=== PATIENT | female | born 1950 | race Caucasian/White ===

== ENCOUNTER 2022-04-03 09:26 | Outpatient (RCR) | payer MEDICARE, BC, SELFPAY ==
[2022-04-03 10:41] LABS: Vitamin D 25 Hydroxy* 53 ng/mL (30-80)
[2022-04-03 13:12] LABS: Albumin* 4.3 g/dL (3.3-5.0); Chloride* 99 mmol/L (96-114); Glucose* 95 mg/dL (60-115); Total Protein* 7.6 g/dL (6.0-8.3)
[2022-04-03 13:13] LABS: Alanine Aminotransferase* 30 U/L (4-35); Alkaline Phosphatase* 90 U/L (40-150); Aspartate Amino Transferase* 49 U/L (12-35); Bilirubin Total* 0.4 mg/dL (0.1-1.5); Blood Urea Nitrogen* 10 mg/dL (7-30); Calcium* 9.1 mg/dL (8.4-10.6); Carbon Dioxide* 27 mmol/L (20-32); Creatinine* 0.6 mg/dL (0.5-1.5); Estimated Glomerular Filt Rate 97 ml/min; Potassium* 4.4 mmol/L (3.6-5.1); Sodium* 136 mmol/L (135-149)
== END 2022-09-30 23:59 | disposition home or self-care (01) ==
LOC: CCIC 09:26
PROVIDERS: PCP Internal Medicine; Visit Provider Nurse Practitioner Family
DX: C50.912 Malignant neoplasm of unspecified site of left female breast (principal); Z17.0 Estrogen receptor positive status [ER+]; Z79.810 Long term (current) use of selective estrogen receptor modulators (SERMs); M85.80 Other specified disorders of bone density and structure, unspecified site
CPT/HCPCS: 36415; 80053; 82306; 99212; 99214

== ENCOUNTER 2022-12-10 13:09 | Outpatient (CLI) | payer MEDICARE, BC, SELFPAY ==
--- NOTE | 2022-12-10 13:20 | CRLHL7_ITS ---
For Patients: As a result of the Century Cures Act, medical imaging exams and procedure reports are released immediately into your electronic medical record. You may view this report before your referring provider. If you have questions, please contact your health care provider. BILATERAL SCREENING MAMMOGRAM WITH COMPUTER-AIDED DETECTION AND TOMOSYNTHESIS TECHNIQUE: CC and MLO views were obtained. These mammographic images have been obtained using full-field digital technique. These mammographic images were interpreted with the benefit of computer-aided detection. Breast Tomosynthesis was used in this interpretation. COMPARISON FILM: 11/26/21, 11/19/20, 11/14/19. FINDINGS: The breasts are heterogeneously dense, which may obscure small masses IMPRESSION: There is no radiographic evidence for malignancy. ASSESSMENT: BI-RADS Category 1: Negative RECOMMENDATION: Routine screening mammogram in 1 year. A lay language report of this examination will be provided to the patient. Efrain López M.D. Diagnostic Radiologist [email or web address] HERBER/Dictated by: Efrain López MD @ 12/11/2022 10:54:00 AM (Electronically Signed)
== END 2022-12-10 13:10 | disposition home or self-care (01) ==
LOC: MAMMO 13:12
PROVIDERS: PCP Internal Medicine; Visit Provider Internal Medicine
DX: Z12.31 Encounter for screening mammogram for malignant neoplasm of breast (principal); R92.2 Inconclusive mammogram
CPT/HCPCS: 77063; 77067

== ENCOUNTER 2023-04-19 09:00 | Outpatient (RCR) | payer MEDICARE, BC, SELFPAY ==
--- NOTE | 2023-03-30 11:18 | PT.OPEX ---
PT [place] [facility] Eval PT [facility] Eval Start: 03/30/23 07:29 Freq: Status: Active Protocol: Document 03/30/23 07:30 CRP (Rec: 03/30/23 11:15 CRP [id number]) E-signed By Enmanuel Miller PT Physical Therapy Outpatient Evaluation Insurance Information Recert Due Date 06/28/23 Insurance Name Medicare B Medical Diagnosis Piriformis syndrome Referring MD Dr Caraballo Subjective Subjective Pt reports bilateral gluteal pain. If sitting for more than 10-15 min she will be painful for 20-30 steps. Pain also sleeping on her sides. When active she feels fine. No numbness or tingling. Feels good in the morning. Feels fine with her aqua classes and walking exer. Notes that this pain started after sitting cross legged in yoga class. This was a little over a month ago. Is no longer doing yoga class. Pt is retired. Pt has been doing some hip and back stretches she learned from her . PMHx - Breast Cancer Pain Comments 12/14 Current Work Status Retired Objective Range of Motion Trunk ROM Flex WNL Ext min dec with LBP Bilat SB WNL BIlat rotation WNL Hip ROM Flex WNL ER R 25 deg, L 50 deg IR R 20, L 15 deg Strength Hip Flex WNL bilat Abd R 4-/5 with glute pain, L 4/5 ER WNL bilat IR WNL bilat Ext 4/5 bilat Palpation Pain glute med/min and piriformis bilat Sensation/Reflexes Sensation intact to light touch Other/Pertinent Objective SLR + for adverse neurodynamics dog barber painful and hypomobile L4 -5 Functional Test Performed & Score LEFS - 62 Assessment Assessment/Impression Pt presents to the clinic with ongoing bilateral gluteal pain that is consistent with piriformis syndrome associated with underlying issues of hip mobility dysfunction, lower quadrant weakness, painful hypomobility of the lumbar spine and adverse neurodynamics bilaterally. Skilled PT is necessary to incorporate ther ex, nm christian, manual therapy, ther act and pt education to decrease pain and improve functional mobility. Primary Functional Limitations Sit to stand Gait Plan of Care Rehabilitation Potential Excellent Physical Therapy Goals 1. Pt will be 100% independent with HEP in 6 weeks 2. Pt will go sit to stand without pain in 8-10 weeks 3. Pt will walk without c.o in 12 weeks Coordination/Communication With Referral Source Treatment Plan/Direct Interventions Joint Mobilization,Manual Therapy,Neuromuscular Re-ed, Therapeutic Activities, Therapeutic Exercises Frequency/Duration 1-2x/wk for 12 weeks Patient Will Be Discharged From Therapy Completion of LTG(s),Skills Plateau,Independent w/HEP, Independently Progressing Evaluation Billing Untimed Code Treatment Minutes 30 Complexity Moderate Certification Information Initial Certification Date 03/30/23 Ending Certification Date 06/28/23 Provider Signature Shows Agreement With POC & Medical Necessity Physician Signature & Date Requested Please Sign/Date Here Physician Comment/Change : Physician NPI Number #
== END 2023-08-17 23:59 | disposition home or self-care (01) ==
PROVIDERS: PCP Internal Medicine; Visit Provider Internal Medicine
DX: G57.03 Lesion of sciatic nerve, bilateral lower limbs (principal); Z51.89 Encounter for other specified aftercare
CPT/HCPCS: 97110; 97140; 97162

== ENCOUNTER 2023-09-09 08:15 | Outpatient (RCR) | payer MEDICARE, BC, SELFPAY ==
--- NOTE | 2023-08-20 15:33 | PT.OPEX ---
PT [place] Outpatient Eval PT [facility] Eval Start: 08/20/23 14:22 Freq: Status: Active Protocol: Document 08/20/23 14:22 CRP (Rec: 08/20/23 15:25 CRP [id number]) E-signed By Enmanuel Miller, PT Physical Therapy Outpatient Evaluation Insurance Information Recert Due Date 11/18/23 Insurance Name Medicare B Medical Diagnosis Sciatica Referring MD Dr Caraballo Subjective Subjective Pt c/o pain at the L hip and then all the way down the leg to the foot. No numbness or tingling. This started with pain on the r glute. This seemed to get better with PT but it ended up on the L side. About a month ago the pain started going all the way down the leg. Is usually pretty good getting out of bed in the morning. The more she is active the better she feels. Sitting makes it worse. Is going to water aerobics and this does not seem to be a problem. Standing and bending forward does help short term. Pain noted with going up stairs when she leads with her L. Pain Comments 10/14 Current Work Status Retired Objective Other/Pertinent Objective Posture: Sitting - normal, Standing- normal L SLS - unable secondary to pain Palpation: Palpable L SI region pain. L posterior rot SI Trunk ROM WNL Hip ROM WNL MMT: myotomes WNL Special testing: thigh thrust negative, SI compression negative, SI distraction negative, sacral thrust negative Following SI testing the pt showed improved wt bearing tolerance, SLR negative bilat, slump test negative Segmental Testing: Prone positioning - UPAs painful and hypomob L3. No radiating pain. Assessment Assessment/Impression Pt presents to the clinic with signs and sxs that suggest SI dysfunction and resulting pain with wt bearing. Skilled PT is necessary to incorporate ther ex, nm christian, manual therapy and pt education to decrease pain and improve functional mobility. Plan of Care Rehabilitation Potential Excellent Physical Therapy Goals 1. Pt will be independent with HEP in 6 weeks. 2. Pt will sit for meals and then get up to walk without any pain in 8 weeks. 3. Pt will go up and down stairs without c.o as needed in 12 weeks. Coordination/Communication With Referral Source Treatment Plan/Direct Interventions Joint Mobilization,Manual Therapy,Neuromuscular Re-ed, Self-Care/Home Management, Therapeutic Activities, Therapeutic Exercises Frequency/Duration 1x/wk x 12 weeks Patient Will Be Discharged From Therapy Completion of LTG(s),Skills Plateau,Independent w/HEP, Independently Progressing Evaluation Billing Untimed Code Treatment Minutes 40 Complexity Moderate Certification Information Initial Certification Date 08/20/23 Ending Certification Date 11/18/23 Provider Signature Shows Agreement With POC & Medical Necessity Physician Signature & Date Requested Please Sign/Date Here Physician Comment/Change : Physician NPI Number #
== END 2024-01-07 23:59 | disposition home or self-care (01) ==
PROVIDERS: PCP Internal Medicine; Visit Provider Internal Medicine
DX: M54.30 Sciatica, unspecified side (principal); Z51.89 Encounter for other specified aftercare
CPT/HCPCS: 97110; 97140; 97162

== ENCOUNTER 2023-09-14 12:10 | Outpatient (CLI) | payer MEDICARE, BC, SELFPAY ==
--- OUTSIDE RECORDS SUMMARY | 2023-09-14 12:12 | XMS_ITS | Referral Summary ---
Author Name Unknown Organization [facility] Address [address] [place] [address] Care Team Providers Care Project Product Manager Name Role Phone Jana Hawkins P.A.-C. Primary Care Provider Source Comments Patient records contain information from all sites at [facility]. For routine questions regarding patient records, call [phone] during business hours, M-F 8:00 AM - 5:00 PM Central Time. Record requests for emergency care only can be directed to [phone] at any time.[facility] Encounters Date Type Department Care Team Description 07/13/2023 Orders Only [facility] J[facility] P.A.-C. Deficiency Estrogen Post Menopausal; Screening Mammogram Breast Cancer from Last 3 Months Allergies Active Allergy Reactions Criticality Noted Date Comments Influenza Virus Vaccines Other (see comments) Medium 04/26/2008 Eye swelling, throat closing Perfume Swelling High 10/10/2012 [place] Sulfa (Sulfonamide Antibiotics) Headache Medium 08/26/2006 Wine Spirit Hives (Reselect Reaction) High 05/08/2015 Medications Medication Sig Dispensed Refills Start Date End Date Status CHOLECALCIFEROL, VITAMIN D3, ORAL Take 1 capsule by mouth daily. 0 10/10/2012 Active docosahexanoic acid/epa (FISH OIL ORAL) Take 2 capsules by mouth daily. 0 10/10/2012 Active MULTIVITAMIN ORAL Take 1 tablet by mouth daily. 0 10/10/2012 Active omeprazole (PriLOSEC) 20 mg capsule Take 20 mg by mouth 2 (two) times a day. 0 Active Lactobacillus rhamnosus GG-inulin (CULTURELLE) 10 billion cell -200 mg per sprinkle capsule Take 1 capsule by mouth daily. Open capsule and mix until dissolved in a cool beverage or sprinkle onto applesauce. Mix until dissolved. 0 Active calcium carbonate-vitamin D3 (Calcium 600 with Vitamin D3) 600 mg-10 mcg (400 unit) tablet,chewable Chew 1 tablet 2 (two) times a week. 0 Active Active Problems Problem Noted Date Diagnosed Date Cancer Breast Personal History 10/14/2017 Cancer Staging:Pathologic stage from 09/23/2017:Stage IA(pT1c, pN0, cM0, G2, ER+, CO+, HER2-, Oncotype DX score: 15) - Signed by Sunil Torres M.D. on 11/02/2017 Clinical: Unsigned Elevated Blood Pressure 08/22/2015 Gastroesophageal Reflux Disease Without Esophagi tis 07/06/2015 Overview: Overview: [facility] - 06/22 Cystocele 07/06/2015 Overview: Overview: [facility] from [facility] with support Rectocele 10/10/2012 Polyp Colon 10/01/2009 Overview: Overview: Colonoscopy 09/2009 polyps repeat in 5 years Colonoscopy 10/2013 hyperplastic polyp repeat in 5 years Immunizations Name Administration Dates Next Due HZV (ZOSTAVAX) 01/19/2013 HepA Adult 12/06/2003,06/04/2003 Influenza TIV (IM) 03/27/1999 Influenza high dose QV(65 years or older) (PF) 1 Influenza, Quadrivalent, Adjuvanted, Preservativ e Free 03/30/2022 PCV13 08/26/2017 PPSV23(Discontinued) 08/29/2018,05/17/2003 RZV (SHINGRIX) 03/11/2019 Tdap 08/18/2017,04/26/2008 Social History Tobacco Use Types Packs/Day Years Used Date Smoking Tobacco: Former Cigarettes Smokeless Tobacco: Never Alcohol Use Standard Drinks/Week Comments Not Currently 0 (1 standard drink = 0.6 oz pur e alcohol) PHQ-2 Answer Date Recorded PHQ-2 Score 1 10/22/2022 Nutrition Answer Date Recorded Nutrition: EVOO Fat Source Unknown 08/07 Nutrition: Servings of Fruits/Vegetables per Day Not on file 08/07/2020 Dental Answer Date Recorded Dental: Regular Dentist Unknown 08/08/19 21 Sex and Gender Information Value Date Recorded Sex Assigned at Not on file Gender Identity Female 10/14/2017 8:36 AM CDT Sexual Orientation Straight 10/14/2017 8: 36 AM CDT Last Filed Vital Signs Vital Sign Reading Time Taken Comments Blood Pressure 134/81 10/22/2022 2:19 PM CDT Pulse 66 10/22/2022 2:19 PM CDT Temperature 36.7 ??C (98 ??F) 10/22/2022 2:19 PM CDT Respiratory Rate 16 10/22/2022 2:19 PM CDT Oxygen Saturation - - Inhaled Oxygen Concentration - - Weight 77.6 kg (170 lb 15.5 oz) 10/22/2022 2:19 PM CDT Height 163 cm (5' 4.17) 10/14/2017 8:54 AM CDT Body Mass Index 29.19 10/14/2017 8:54 AM CDT Plan of Treatment Not on file Care Teams Project Product Manager Relationship Specialty Start Date End Date Jana Hawkins P.A.-C. [address] [place] [address] PCP - General Internal Medicine 10/22/22
--- OUTSIDE RECORDS SUMMARY | 2023-09-14 12:12 | XMS_ITS | Clinical Summary ---
Author Name Unknown Organization [facility] Address [place], [place] [address] Care Team Providers Care Coffee Shop Manager Name Role Phone Pinky Yusuf Jane Kristin MD Primary Care Provide r Allergies Active Allergy Reactions Criticality Noted Date Comments Amoxicillin Diarrhea,Edema 07/06/2015 Influenza Virus Vaccines Dyspnea 04/26/2008 Eye swelling Sulfa (Sulfonamide Antibiotics) Headache 08/06 Wine [place] Hives 05/08/2015 Medications Medication Sig Dispensed Refills Start Date End Date Status fluticasone (50 mcg per actuation) nasal solution (FLONASE)Indications :Bilateral acute serous otitis media, recurrence not specified Inhale 1 [place] into both nostrils 2 times daily. 1 Bottle 0 08/22/2015 Active omeprazole (PRILOSEC) 20 mg Delayed-Release capsuleIndications:H iatal hernia with GERD TAKE 1 CAPSULE BY MOUTH TWO TIMES A DAY BEFORE MEALS. 60 capsule 11 11/05/2015 Active varenicline (CHANTIX STARTING MONTH BOX) 0.5 mg (11)- 1 mg (42) tabletIndications:To bacco dependence Take one 0.5mg tab daily for 3 days, then one 0.5mg tab twice daily for 4 days, then one 1mg tab twice daily. 1 Packet 10/23/2016 Active tamoxifen (NOLVADEX) 20 mg tablet Take 20 mg by mouth once daily. 12/11/2021 Active Active Problems Problem Noted Date Diagnosed Date Elevated BP 08/22/2015 Overweight (BMI 25.0-29.9) 08/22/2015 Bladder prolapse, female, acquired 07/06/2015 Overview: Pessary from [facility] with support Hiatal hernia with GERD 07/06/2015 Overview: Schatzke ring - 06/22 Other acne 11/06/2014 Colon polyps 10/01/2009 Overview: Colonoscopy 09/2009 polyps repeat in 5 years Colonoscopy 10/2013 hyperplastic polyp repeat in 5 years Resolved Problems Problem Noted Date Diagnosed Date Resolved Date Tobacco abuse 11/06/2014 07/06/2015 Acute mastitis of right breast 07/09/2011 07/06/2015 Migraine, unspecified, witho ut mention of intractable migraine without mention of status migrainosus 08/26/2006 07/06/2015 Depressive disorder, not elsewhere classified 08/27/19 07 09/12/2010 Other acne 08/26/2006 09/12/2010 Tobacco use disorder 08/26/2006 011 Immunizations Name Administration Dates Next Due Influenza, IIV3 (Age >=3 years) 03/27/1999 Tdap 04/26/2008 Zoster (Zostavax-ZVL, live) 01/19/2013 Family History Medical History Relation Name Comments Diabetes Father Heart Disease Father Other Mother migraine headac hes Cancer-breast Paternal Aunt Relation Name Status Comments Father Mother Paternal Aunt Social History Tobacco Use Types Packs/Day Years Used Date Smoking Tobacco: Every Day Cigarettes 0.5 22 Started: 10/12/1992; Last attempted to quit: 10/12/2014 Smokeless Tobacco: Never Tobacco Cessation:Ready to Q uit: Yes; Counseling Given: Yes Comments:ATQ 11/18/06-on Chantix-11/01/13, e-cig Alcohol Use Standard Drinks/Week Comments Yes 10 (1 standard drink = 0.6 oz pu re alcohol) 2 beers 3 times a week Sex and Gender Information Value Date Recorded Sex Assigned at Not on file Gender Identity Not on file Sexual Orientation Not on file Obstetrics History Para Term AB IAB SAB Ectopic Multiple Livin g Live Births 3 3 Date Outcome GA Total Labor Labor/2nd/3rd Weight Sex Delivery Anes PTL Kayla A1 A5 Name Cl in Last Filed Vital Signs Vital Sign Reading Time Taken Comments Blood Pressure 128/74 12/24/2021 1:36 PM CDT Pulse 80 12/24/2021 1:36 PM CDT Temperature 36.7 ??C (98.1 ??F) 08/22/2015 11:05 AM C DT Respiratory Rate 16 09/12/2010 10:31 AM CDT Oxygen Saturation 99% 12/24/2021 1:36 PM CDT Inhaled Oxygen Concentration - - Weight 71.2 kg (157 lb) 10/23/2016 10:10 AM CDT Height 160 cm (5' 3) 10/23/2016 10:10 AM CDT Body Mass Index 27.81 10/23/2016 10:10 AM CDT Plan of Treatment Health Maintenance Due Date Last Done Comments Depression screening for age 12+ 1964 Hepatitis C screening for ag e 18-79 1970 Zoster (shingles) series for age 50+ (2 of 3) 03/16/2013 01/19/2013 Mammogram for age 45-75 07/19/2014 07/19/19 14, 07/04/2012, 09/04/2010, Additional history exists Lipids for age 45-75 08/21/2015 08/20/2010, 11/19/19 07 DEXA/DXA scan for age 65+ 2017 Medicare Wellness for age 65+ 2017 Pneumococcal series for age 65+ (1 of 1 - PCV) 2017 BMI (ht and wt on same day) for age 18+ 10/23/2017 10/23/2016, 08/22/2015 Tetanus booster 04/26/2018 04/26/2008 Colonoscopy through age 75 11/02/201811/02, 11/01/2013, 09/27/2009 (Completed outside of [facility]), Additional history exists COVID-19 vaccine series ( season) 2023 09/16/2021, 03/31/2021, 09/05/2020, Additional history exists Influenza for age 65+ 02/06/2024 03/27/1999 Tdap Completed 04/26/2008 Procedures Procedure Name Priority Date/Time Associated Diagnosis Comments XR MAMMO BILAT SCREEN FFDM (IA) Routine 07/19/2013 10:00 AM TRAFFIC RATE CLERK Other screening mammogram LIPID PANEL Routine 08/20/2010 9:39 AM CDT Lipid screening from Last 3 Months or Most Recently Relevant to Health Maintenance Results * XR MAMMO BILAT SCREEN FFDM (07/19/2013 10:00 AM TRAFFIC RATE CLERK) Anatomical Region Laterality Modality BREASTS, Breast Left, Breast Right Bilateral Mammography Impressions 07/19/2013 12:34 PM TRAFFIC RATE CLERK ??There is no radiographic evidence for malignancy. ??Recommend annual mammograms. A lay language report of this examination will be provided to the patient. MAMMOGRAM ASSESSMENT: ??ACR 2 Benign Narrative 07/19/2013 12:34 PM TRAFFIC RATE CLERK XR MAMMO BILAT SCREEN FFDM [G0202.0] CLINICAL HISTORY: ??This is an asymptomatic 62 y.o. patient. INDICATION FOR EXAM: Mammogram Screening. TECHNIQUE: CC & MLO views were obtained. ??This digital study was evaluated with the assistance of Computer-Aided Detection. ?? COMPARISON FILMS: Yes 07/04/12 [facility] 09/04/10 [facility] FINDINGS: ??Mammographically, the breast tissue is heterogeneously dense, which could obscure detection of small masses (approximately 51% - 75% glandular). ??No suspicious masses or microcalcifications. ??Benign appearing calcifications within both breasts. Procedure Note Artem White, DO - 07/19/2013 XR MAMMO BILAT SCREEN FFDM [G0202.0] CLINICAL HISTORY: This is an asymptomatic 62 y.o. patient. INDICATION FOR EXAM: Mammogram Screening. TECHNIQUE: CC & MLO views were obtained. This digital study was evaluatedwith the assistance of Computer-Aided Detection. COMPARISON FILMS: Yes 07/04/12 [facility] 09/04/10 [facility] FINDINGS: Mammographically, the breast tissue is heterogeneously dense,which could obscure detection of small masses (approximately 51% - 75%glandular). No suspicious masses or microcalcifications. Benignappearing calcifications within both breasts. IMPRESSION: There is no radiographic evidence for malignancy. Recommendannual mammograms. A lay language report of this examination will be provided to the patient. MAMMOGRAM ASSESSMENT: ACR 2 Benign Arcelia Klein MD MAMMO * LIPID (08/20/2010 9:39 AM CDT) CHOLESTEROL,TOTAL 183 110 - 199 mg/dL [facility] TRIGLYCERIDES 122 <150 mg/dL [facility] HDL CHOLESTEROL 69 >40 mg/dL [facility] CHOL/HDL RATIO 2.65 <4.51 [facility] LDL CHOLESTEROL 90 <131 mg/dL [facility] PATIENT STATUS Fasting [facility] Blood specimen (specimen) BLOOD SPECIMEN / Unknown 08/20/2010 9:39 AM CDT 08/20/2010 9:28 AM CDT Grace Hutchins NP CHEMISTRY [facility] [address] [place] [address] from Last 3 Months or Most Recently Relevant to Health Maintenance Care Teams Coffee Shop Manager Relationship Specialty Start Date End Date Melodie Aguilar MD [address] [place] [address] PCP - General Family Practice 04/12/15 Pinky Yusuf TELEVISION STATION MANAGER Obstetrics and Gynecology 09/20/12
--- OUTSIDE RECORDS SUMMARY | 2023-09-14 12:12 | XMS_ITS | Clinical Summary ---
Author Name Unknown Organization [facility] Address [address] [place] [address] Care Team Providers Care Grain Oilseed Or Pasture Farm Manager Name Role Phone Jana Hawkins P.A.-C. Primary Care Provider Source Comments Patient records contain information from all sites at [facility]. For routine questions regarding patient records, call [phone] during business hours, M-F 8:00 AM - 5:00 PM Central Time. Record requests for emergency care only can be directed to [phone] at any time.[facility] Allergies Active Allergy Reactions Criticality Noted Date Comments Influenza Virus Vaccines Other (see comments) Medium 04/26/2008 Eye swelling, throat closing Perfume Swelling High 10/10/2012 [place] Sulfa (Sulfonamide Antibiotics) Headache Medium 08/26/2006 Wine [...] from 09/23/2017:Stage IA(pT1c, pN0, cM0, G2, ER+, NV+, HER2-, Oncotype DX score: 15) - Signed by Sunil Torres M.D. on 11/02/2017 Clinical: Unsigned Elevated Blood Pressure 08/22/2015 Gastroesophageal Reflux Disease Without Esophagi tis 07/06/2015 Overview: Overview: [facility] - 06/22 Cystocele 07/06/2015 Overview: Overview: Pessary from [facility] with support Rectocele 10/10/2012 Polyp Colon 10/01/2009 Overview: Overview: Colonoscopy 09/2009 polyps repeat in 5 years Colonoscopy 10/2013 hyperplastic polyp repeat in 5 years Encounters Date Type Department Care Team Description 07/13/2023 Orders Only [facility] MNT Jana Hawkins, P.A.-C. Deficiency Estrogen Post Menopausal; Screening Mammogram Breast Cancer from Last 3 Months Immunizations Name Administration Dates Next Due HZV [...] 10/14/2017 8:54 AM CDT Plan of Treatment Health Maintenance Due Date Last Done Comments Bone Density Scan (Osteoporo sis Screen) 1952 CT Colonography 1950 Cologuard 1950 Colonoscopy 1950 Colorectal Cancer Surveillance 1950 Hepatitis C Screening 1950 Mammogram 1950 Visit: Medicare Annual Wellness 1950 Zoster Vaccines (3 of 3) 05/06/2019 03/11/2019, 01/05 Depression Screening (Annual PHQ-2) 06/07/2023 Fall Risk Screen (Annual) 06/07/2023 Visit: Annual, age 65+ (or Medicare and <65) 10/23/2023 10/22/2022 Fasting Glucose for Diabetes Screening 10/22/2025 10/22/2022, 10/22/2022 DTaP,Tdap,and Td Vaccines (3 - Td or Tdap) 08/19/2027 08/18/2017, 04/26/2008 Hepatitis A Vaccines Completed 12/06/2003, 06/04/20 Pneumococcal vaccine (65+ years) Completed 08/29/2018, 08/26/2017, 05/17/2003 Influenza Vaccine Completed 03/04/2023, , 03/11/2021, Additional history exists COVID-19 Vaccine Completed 03/20/2023, , 09/16/2021, Additional history exists Care Teams Grain Oilseed Or Pasture Farm Manager Relationship Specialty Start Date End Date Jana Hawkins P.A.-C. [address] [place] [address] ALEC MATTHEWS [phone] PCP - General Internal Medicine 10/22/22
--- OUTSIDE RECORDS SUMMARY | 2023-09-14 12:12 | XMS_ITS | Encounter Summary ---
Author Name Unknown Organization [facility] Address [address] [place] [address] Care Team Providers Care Ramp Service Employee Name Role Phone Jana Hawkins P.A.-C. Primary Care Provider Reason for Referral * Outpatient (Routine) - Authorized Specialty Diagnoses / Procedures Referred By Contac t Referred To Contact Jana Hawkins P.A.-C. [address] [place] [address] [facility] Referral ID Status Reason Start Date Expiration Date V isits Requested Visits Authorized [id number] Authorized 07/13/2023 01/11/2025 1 1 Scheduling Instructions Nurse AWV Do not schedule prior to due date to ensure insurance coverage Visit: Medicare Annual Wellness Never done. LOPMENT GEOLOGIST * Outpatient (Routine) - Authorized Specialty Diagnoses / Procedures Referred By Contac t Referred To Contact [facility] Jana Hawkins P.A.-C. [address] [place] [address] [facility] Referral ID Status Reason Start Date Expiration Date V isits Requested Visits Authorized [id number] Authorized 07/13/2023 01/11/2025 1 1 Scheduling Instructions Medicare annual provider visit/HCC gaps Do not schedule prior to due date to ensure insurance coverage Visit: Medicare Annual Wellness Never done. LOPMENT GEOLOGIST * Outpatient (Routine) - Authorized Specialty Diagnoses / Procedures Referred By Contac t Referred To Contact Diagnoses Screening Mammogram Breast Cancer Procedures BI Breast Screening Bilateral with Tomosynthesis Jana Hawkins P.A.-CBrendan [address] [place] [address] [facility] Referral ID Status Reason Start Date Expiration Date V isits Requested Visits Authorized [id number] Authorized 07/13/2023 07/12/2024 1 1 LOPMENT GEOLOGIST * Outpatient (Routine) - Authorized Specialty Diagnoses / Procedures Referred By Christina child Referred To Contact Diagnoses Deficiency Estrogen Post Menopausal Procedures BMD Bone Density Spine Hips Jana Hawkins P.A.-CBrendan [address] [place] [address] [facility] Region Referral ID Status Reason Start Date Expiration Date V isits Requested Visits Authorized [id number] Authorized 07/13/2023 07/12/2024 1 1 LOPMENT GEOLOGIST Encounter Details Date Type Department Care Team (Late st Contact Info) Description 07/13/2023 Orders Only [facility] P[facility] MNT Jana Hawkins P.A.-C. [address] [place] [address] Deficiency Estrogen Post Menopausal; Screening Mammogram Breast Cancer Social History Tobacco Use Types Packs/Day Years [...] Orientation Straight 10/14/2017 8: 36 AM CDT documented as of this encounter Plan of Treatment Scheduled Orders Name Type Priority Associated Diagnoses Order Schedule BMD Bone Density Spine Hips Imaging RAD - Routine (most inpatients and all outpatients) Deficiency Estrogen Post Menopausal Expected: 07/27/2023, Expires: 01/09/2024 BI Breast Screening Bilateral with Tomosynthesis Imaging RAD - Routine (most inpatients and all outpatients) Screening Mammogram Breast Cancer Expected: 08/12/2023, Expires: 01/09/2024 Scheduled Referrals Name Type Priority Associated Diagnoses Orde r Schedule Community Internal Medicine office visit (clinic) Outpatient Referral Routine Expected: 08/10/2023, Expires: 01/09/2024 Primary Care nurse visit (clinic) - [facility]; Medicare Annual Wellness Outpatient Referral Routine Expected: 08/10/2023, Expires: 01/09/2024 documented as of this encounter Visit Diagnoses Diagnosis Deficiency Estrogen Post Menopausal Screening Mammogram Breast Cancer documented in this encounter Care Teams Ramp Service Employee Relationship Specialty Start Date End Date Jana Hawkins P.A.-C. [address] [place] [address] PCP - General Internal Medicine 10/22/22 documented as of this encounter
--- OUTSIDE RECORDS SUMMARY | 2023-09-14 12:12 | XMS_ITS ---
Author Name Unknown Organization [facility] Address [address] [place] [address] Care Team Providers Care Marketing Content Coordinator Name Role Phone Unavailable Unavailable Unavailable Surgery Details Not on file Complications Check Surgery Details section. Procedure Estimated Blood Loss Check Surgery Details section. Procedure Findings Check Surgery Details section. Procedure Specimens Taken Check Surgery Details section.
== END 2023-09-14 12:11 | disposition home or self-care (01) ==
PROVIDERS: PCP Internal Medicine; Visit Provider Obstetrics & Gynecology
DX: R33.9 Retention of urine, unspecified (principal)
CPT/HCPCS: 82565; 87086

== ENCOUNTER 2023-11-23 07:55 | Outpatient (CLI) | payer MEDICARE, BC, SELFPAY ==
--- OUTSIDE RECORDS SUMMARY | 2023-11-23 07:58 | XMS_ITS | Referral Summary ---
Author Organization [facility] Address [address] [place] [address] Care Team Providers Care Geospatial Information Scientist Name Role Phone Jana Hawkins P.A.-C. Primary Care Provider Source Comments Patient records contain information from all sites at [facility]. For routine questions regarding patient records, call [phone] during business hours, M-F 8:00 AM - 5:00 PM Central Time. Record requests for emergency care only can be directed to [phone] at any time.[facility] Encounters Date Type Department Care Team Description 09/29/2023 Orders Only Department of Obstetrics and Gynecology, Division of Urogynecology in [place], [place] [address] [place] [address] Omar Meraz R.N. Cystocele Midline (Primary Dx) from Last 3 Months Allergies Active Allergy Reactions Criticality Noted Date Comments Influenza Virus Vaccines Other (see comments) Medium 04/26/2008 Eye swelling, throat closing Perfume Swelling High 10/10/2012 [place] Sulfa (Sulfonamide Antibiotics) Headache Medium 08/26/2006 [place] Hives (Reselect Reaction) High 05/08/2015 Medications Medication Sig Dispensed Refills Start Date End Date Status CHOLECALCIFEROL, VITAMIN D3, ORAL Take 1 capsule by mouth daily. 10/10/2012 Active docosahexanoic acid/epa (FISH OIL ORAL) Take 2 capsules by mouth daily. 10/10/2012 Active MULTIVITAMIN ORAL Take 1 tablet by mouth daily. 10/10/2012 Active omeprazole (PriLOSEC) 20 mg capsule Take 20 mg by mouth 2 (two) times a day. Active Lactobacillus rhamnosus GG-inulin (CULTURELLE) 10 billion cell -200 mg per sprinkle capsule Take 1 capsule by mouth daily. Open capsule and mix until dissolved in a cool beverage or sprinkle onto applesauce. Mix until dissolved. Active calcium carbonate-vitamin D3 (Calcium 600 with Vitamin D3) 600 mg-10 mcg (400 unit) tablet,chewable Chew 1 tablet 2 (two) times a week. Active Active Problems Problem Noted Date Diagnosed Date Cancer Breast Personal History 10/14/2017 Cancer Staging:Pathologic stage from 09/23/2017:Stage IA(pT1c, pN0, cM0, G2, ER+, MT+, HER2-, Oncotype DX score: 15) - Signed by Sunil Torres M.D. on 11/02/2017 Clinical: Unsigned Elevated Blood Pressure 08/22/2015 Gastroesophageal Reflux Disease Without Esophagi tis 07/06/2015 Overview: Overview: [facility] - 06/22 Cystocele 07/06/2015 Overview: Overview: Pessary from [facility] with support Rectocele 10/10/2012 Polyp Colon 10/01/2009 Overview: Overview: Colonoscopy 09/2009 polyps repeat in 5 years Colonoscopy 10/2013 hyperplastic polyp repeat in 5 years Immunizations Name Administration Dates Next Due HZV (ZOSTAVAX) 01/19/2013 HepA Adult 12/06/2003,06/04/2003 Influenza TIV (IM) 03/27/1999 Influenza high dose QV(65 years or older) (PF) 1 Influenza, Quadrivalent, Adjuvanted, Preservativ e Free 03/30/2022 PCV13 08/26/2017 PPSV23 08/29/2018,05/17/2003 RZV (SHINGRIX) 03/11/2019 Tdap 08/18/2017,04/26/2008 Social [...] Information Value Date Recorded Sex Assigned at Female 10/06/2023 6:16 PM CDT Gender Identity Female 10/14/2017 8:36 AM CDT [...] 10/14/2017 8:54 AM CDT Plan of Treatment Upcoming Encounters Date Type Department Care Team (Latest Contact Info) Description 12/22/2023 9:30 AM CDT Clinical Communication Virtual Review in [place], [place] [address] [place] [address] 12/27/2023 8:00 AM CDT Procedure visit Department of Obstetrics and Gynecology, Division of Urogynecology in [place], [place] [address] [place] [phone] Davy Sim M.D., M.S. [address] [place] [phone] 12/27/2023 9:30 AM CDT Comprehensive Visit Department of Obstetrics and Gynecology, Division of Urogynecology in [place], [place] [address] [place] [phone] Davy Sim M.D., M.S. [address] [place] [phone] Procedures Procedure Name Priority Date/Time Associated Diagnosis Comments HEMOGLOBIN A1C, B Routine 10/22/2022 3:2 3 PM CDT Neuropathy Peripheral from Last 3 Months or Most Recently Relevant to Health Maintenance Results * Hemoglobin A1c (10/22/2022 3:23 PM CDT) Hemoglobin A1c, B 5.3 4.2 - 5.6 % 10/22/2022 6:19 PM CDT OWAT Blood (Blood, Venous) 10/22/2022 3:23 PM CDT 10/22/2022 5:51 PM CDT Lynda Perez P.A.-C. LAB BLOOD ADD-ON [facility] [address] [place] [address], [facility] in [place] [address] [place] [address] from Last 3 Months or Most Recently Relevant to Health Maintenance Care Teams Geospatial Information Scientist Relationship Specialty Start Date End Date Jana Hawkins P.A.-C. [address] [place] [address] [place] [phone] PCP - General Internal Medicine 10/22/22
--- OUTSIDE RECORDS SUMMARY | 2023-11-23 07:58 | XMS_ITS | Encounter Summary ---
Author Organization [facility] Address [address] [place] [phone] Care Team Providers Care Rn Coronary Care Unit Name Role Phone Jana Hawkins P.A.-C. Primary Care Provider Reason for Referral * Outpatient (Routine) - Authorized Specialty Diagnoses / Procedures Referred By Christina child Referred To Contact Diagnoses Cystocele Midline Procedures OBG Urodynamic Studies Davy Sim M.D., M.S. [address] [place] [phone] [facility] Referral ID Status Reason Start Date Expiration Date V isits Requested Visits Authorized [id number] Authorized 09/29/2023 09/28/2024 1 1 Encounter Details Date Type Department Care Team (Late st Contact Info) Description 09/29/2023 Orders Only Department of Obstetrics and Gynecology, Division of Urogynecology in [place], [place] [address] [place] [phone] Omar Meraz RCleve [address] [place] [phone] Cystocele Midline (Primary Dx) Social History Tobacco Use Types Packs/Day Years [...] as of this encounter Plan of Treatment Upcoming Encounters Date Type Department Care Team (Latest Contact Info) Description 12/22/2023 9:30 AM CDT Clinical Communication Virtual Review in [place], [place] [address] [place] [address] 12/27/2023 8:00 AM CDT Procedure visit Department of Obstetrics and Gynecology, Division of Urogynecology in [address] [phone] Davy Sim M.D., M.S. [address] [place] [phone] 12/27/2023 9:30 AM CDT Comprehensive Visit Department of Obstetrics and Gynecology, Division of Urogynecology in [address] [phone] Davy Sim M.D., M.S. [address] [place] [phone] Scheduled Orders Name Type Priority Associated Diagnoses Orde r Schedule OBG Urodynamic Studies OB Routine Cystocele Midline Expected: 12/27/2023, Expires: 12/28/2024 documented as of this encounter Visit Diagnoses Diagnosis Cystocele Midline- Primary documented in this encounter Care Teams Rn Coronary Care Unit Relationship Specialty Start Date End Date Jana Hawkins P.A.-C. [address] [place] [address] [place] [phone] PCP - General Internal Medicine 10/22/22 documented as of this encounter
--- OUTSIDE RECORDS SUMMARY | 2023-11-23 07:58 | XMS_ITS ---
Author Organization [facility] Address [address] [place] [address] Care Team Providers Care Hotel And Dining Room Cashier Name Role Phone Unavailable Unavailable Unavailable Surgery Details Not on file Complications Check Surgery Details section. Procedure Estimated Blood Loss Check Surgery Details section. Procedure Findings Check Surgery Details section. Procedure Specimens Taken Check Surgery Details section.
--- OUTSIDE RECORDS SUMMARY | 2023-11-23 07:58 | XMS_ITS | Clinical Summary ---
Author Organization [facility] Address [address] [place] [address] Care Team Providers Care Office Nurse Practitioner Name Role Phone Jana Hawkins P.A.-C. Primary Care Provider Source Comments Patient records contain information from all sites at [facility]. For routine questions regarding patient records, call [phone] during business hours, M-F 8:00 AM - 5:00 PM Central Time. Record requests for emergency care only can be directed to [phone] at any time.[facility] Allergies Active Allergy Reactions Criticality Noted Date Comments Influenza Virus Vaccines Other (see comments) Medium 04/26/2008 Eye swelling, throat closing Perfume Swelling High 10/10/2012 [place] Sulfa (Sulfonamide Antibiotics) Headache Medium 08/26/2006 Wine [...] from 09/23/2017:Stage IA(pT1c, pN0, cM0, G2, ER+, AZ+, HER2-, Oncotype DX score: 15) - Signed by Sunil Torres M.D. on 11/02/2017 Clinical: Unsigned Elevated Blood Pressure 08/22/2015 Gastroesophageal Reflux Disease Without Esophagi tis 07/06/2015 Overview: Overview: Schatzke ring - 06/22 Cystocele 07/06/2015 Overview: Overview: Pessary from [facility] with support Rectocele 10/10/2012 Polyp Colon 10/01/2009 Overview: Overview: Colonoscopy 09/2009 polyps repeat in 5 years Colonoscopy 10/2013 hyperplastic polyp repeat in 5 years Encounters Date Type Department Care Team Description 09/29/2023 Orders Only Department of Obstetrics and Gynecology, Division of Urogynecology in [place], [place] [address] [place] [phone] Omar Meraz, RBrendanN. Cystocele Midline (Primary Dx) from Last 3 Months Immunizations Name Administration [...] AM CDT Clinical Communication Virtual Review in [place], [place] [address] [place] [address] 12/27/2023 8:00 AM CDT Procedure visit Department of Obstetrics and Gynecology, Division of Urogynecology in [place], [place] [address] [place] [phone] Davy Sim M.D., M.S. [address] [place] [phone] 12/27/2023 9:30 AM CDT Comprehensive Visit Department of Obstetrics and Gynecology, Division of Urogynecology in [place], [place] [address] [place] [phone] Davy Sim M.D., M.S. [address] [place] [phone] Health Maintenance Due Date Last Done Comments Bone Density Scan (Osteoporo sis Screen) 1952 CT Colonography 1952 Cologuard 1952 Colonoscopy 1952 Colorectal Cancer Surveillance 1950 Hepatitis C Screening 1950 Mammogram 1950 Visit: Medicare Annual Wellness 1950 Zoster Vaccines (3 of 3) 05/06/2019 03/11/2019, 01/05 Depression Screening (Annual PHQ-2) 06/07/2023 Fall Risk Screen (Annual) 06/07/2023 COVID-19 Vaccine (2022-2 4 season) 2023 03/20/2023, 03/20/2022, 09/16/2021, Additional history exists Visit: Annual, age 65+ (or Medicare and <65) 10/23/2023 10/22/2022 Fasting Glucose for Diabetes Screening 10/22/2025 10/22/2022, 10/22/2022 DTaP,Tdap,and Td Vaccines (3 - Td or Tdap) 08/19/2027 08/18/2017, 04/26/2008 Hepatitis A Vaccines Completed 12/06/2003, 06/04/20 03 Pneumococcal vaccine (65+ years) Completed 08/29/2018, 08/26/2017, 05/17/2003 Influenza Vaccine Completed 03/04/2023, , 03/11/2021, Additional history exists Procedures Procedure Name Priority Date/Time Associated Diagnosis [...] CDT Lynda Perez P.A.-C. LAB BLOOD ADD-ON [facility] [address] [place] [address], [place] [facility] [place] [address] [place] [address] from Last 3 Months or Most Recently Relevant to Health Maintenance Care Teams Office Nurse Practitioner Relationship Specialty Start Date End Date Jana Hawkins P.A.-C. [address] [place], [place] [address]paige OP[place]ULL[place] ALEC [phone] PCP - General Internal Medicine 10/22/22
--- OUTSIDE RECORDS SUMMARY | 2023-11-23 07:59 | XMS_ITS | Clinical Summary ---
Author Organization [facility] Address [place], [place] [address] Care Team Providers Care Recording Studio Intern Name Role Phone Pinky Yusuf Jane Kristin [...] otitis media, recurrence not specified Inhale 1 [place] into both nostrils 2 times daily. 1 [...] prolapse, female, acquired 07/06/2015 Overview: Pessary from [facility] with support Hiatal hernia with GERD 07/06/2015 [...] Outcome GA Total Labor Labor/2nd/3rd Weight Sex Type Anes PTL Kayla A1 A5 Name Clin Last Filed Vital Signs Vital Sign Reading [...] 77 11/02/201811/02, 11/01/2013, 09/27/2009 (Completed outside of [facility]), Additional history exists COVID-19 vaccine series (2022- season) 2023 09/16/2021, 03/31/2021, 09/05/2020, Additional history exists Influenza for age 65+ 02/06/2024 03/27/1999 Tdap Completed 04/26/2008 Procedures Procedure Name Priority Date/Time Associated Diagnosis Comments XR MAMMO BILAT SCREEN FFDM (IA) Routine 07/19/2013 10:00 AM PRESIDENT ERGONOMIC CONSULTING Other screening mammogram LIPID PANEL Routine 08/20/2010 9:39 AM CDT Lipid screening from Last 3 Months or Most Recently Relevant to Health Maintenance Results * XR MAMMO BILAT SCREEN FFDM (07/19/2013 10:00 AM PRESIDENT ERGONOMIC CONSULTING) Anatomical Region Laterality Modality BREASTS, Breast Left, Breast Right Bilateral Mammography Impressions 07/19/2013 12:34 PM PRESIDENT ERGONOMIC CONSULTING ??There is no radiographic evidence for malignancy. ??Recommend annual mammograms. A lay language report of this examination will be provided to the patient. MAMMOGRAM ASSESSMENT: ??ACR 2 Benign Narrative 07/19/2013 12:34 PM PRESIDENT ERGONOMIC CONSULTING XR MAMMO BILAT SCREEN FFDM [G0202.0] CLINICAL HISTORY: ??This is an asymptomatic 62 y.o. patient. INDICATION FOR EXAM: Mammogram Screening. TECHNIQUE: CC & MLO views were obtained. ??This digital study was evaluated with the assistance of Computer-Aided Detection. ?? COMPARISON FILMS: Yes 07/04/12 [facility] 09/04/10 [facility] FINDINGS: ??Mammographically, the breast tissue is [...] of Computer-Aided Detection. COMPARISON FILMS: Yes 07/04/12 [facility] 09/04/10 [facility] FINDINGS: Mammographically, the breast tissue is [...] CDT) CHOLESTEROL,TOTAL 183 110 - 199 mg/dL [facility] TRIGLYCERIDES 122 <150 mg/dL [facility] HDL CHOLESTEROL 69 >40 mg/dL [facility] CHOL/HDL RATIO 2.65 <4.51 [facility] LDL CHOLESTEROL 90 <131 mg/dL [facility] PATIENT STATUS Fasting [facility] Blood specimen (specimen) BLOOD SPECIMEN / Unknown 08/20/2010 9:39 AM CDT 08/20/2010 9:28 AM CDT Grace Hutchins EDITOR [employer]SE [employer] CHEMISTRY [facility] [address] [place] [address] from Last 3 Months or Most Recently Relevant to Health Maintenance Care Teams Recording Studio Intern Relationship Specialty Start Date End Date Melodie Aguilar MD [address] [place] [id number] PCP - General Family Practice 04/12/15 Pinky Yusuf OIL AND GAS EXPLORATION TECHNICIAN Obstetrics and Gynecology 09/20/12
--- NOTE | 2023-11-23 09:39 | W.ANESCHARGE ---
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
--- NOTE | 2023-11-23 09:42 | W.ANESCHARGE ---
Anesthesia Charges Start Date/Time Anesthesia Start Date: 11/23/23 Anesthesia Start Time: 08:58 Stop Date/Time Anesthesia Stop Date: 11/23/23 Anesthesia Stop Time: 09:36
== END 2023-11-23 07:56 | disposition home or self-care (01) ==
LOC: OP CLINIC 07:56
PROVIDERS: PCP Internal Medicine; Visit Provider Surgery
DX: Z12.11 Encounter for screening for malignant neoplasm of colon (principal); K63.5 Polyp of colon; K57.30 Diverticulosis of large intestine without perforation or abscess without bleeding; Z86.010 Personal history of colon polyps
CPT/HCPCS: 00811; 45385; 88305; 99100; J2405; J2704

== ENCOUNTER 2023-11-24 14:21 | Emergency (ER) | payer MEDICARE, BC, SELFPAY ==
[2023-11-24 14:30] VITALS: BP 156/73; PULSE 77; RESP 20; TEMP 35.8; O2SAT 99; BMI 26.2
--- NOTE | 2023-11-24 14:43 | CRLHL7_ITS ---
For Patients: As a result of the Century Cures Act, medical imaging exams and procedure reports are released immediately into your electronic medical record. You may view this report before your referring provider. If you have questions, please contact your health care provider. Indication: Diffuse abdominal pain Technique: CT abdomen and pelvis with intravenous contrast, 72 cc of Isovue 370. Please note that all CT scans at this facility use dose modulation, iterative reconstruction, and/or weight-based dosing when appropriate to reduce radiation dose to as low as reasonably achievable. Comparison: CT abdomen and pelvis December 11, 2019 Findings: Stable 5 millimeter right lower lobe fissural nodule is benign. Small hiatal hernia is again noted. The liver, gallbladder, adrenal glands, pancreas and left kidney are normal. Benign calcification is noted within the spleen. Very small right kidney cyst is identified. Right pelvocaliectasis has decreased since the prior study. Urinary bladder is grossly unremarkable. 30 millimeter exophytic fibroid is present. Pessary is in place. The appendix is surgically absent. There is no bowel obstruction, definite focal bowel wall thickening or inflammatory stranding about the hollow viscera. Distal colonic diverticulosis is again noted. There is no ascites, free air or lymphadenopathy. The abdominal aorta and its major branches are patent and normal in caliber. Soft tissues are unremarkable. Degenerative changes are most prominent at L2-3 and L5-S1. Mild degenerative changes are present within the hips. Impression: No acute intra-abdominal findings. Please note that all CT scans at this facility use dose modulation, iterative reconstruction, and/or weight-based dosing when appropriate to reduce radiation dose to as low as reasonably achievable. Dictated by Adriano Ayala MD @ 11/24/2023 4:31:22 PM (Electronically Signed)
--- NOTE | 2023-11-24 14:47 | ED.GENADULT ---
HPI - General Adult General Chief complaint: Abdominal Pain Stated complaint: pain post-colonoscopy Time Seen by Provider: 11/24/23 14:26 Source: patient Mode of arrival: ambulatory Limitations: no limitations History of Present Illness HPI narrative: 73-year-old female coming in today complaining of diffuse abdominal pain. Patient is postop day 1 status post a colonoscopy where she did have a 4 mm sessile polyp removed with a cold snare, colonoscopy was otherwise unremarkable.. She states that the pain is all over the abdomen nothing seems to make it better or worse. She did have small bowel movement earlier today which was unremarkable. She is passing gas. She denies any vomiting or nausea. She denies difficulty urinating. She denies any increased frequency or urgency. No fevers or chills. Patient has had colonoscopies before and they were not this uncomfortable the day after. Past abdominal surgical history includes a tubal ligation and appendectomy. Related Data Home Medications ?Medication ?Instructions ?Recorded ?Confirmed Lactobacillus 1 cap PO DAILY 12/18/21 09/27/23 acidophilus-Bifidobac.animalis 31 billion cell capsule omega-3 fatty acids 1,000 mg 1,000 mg PO BID 12/18/21 09/27/23 capsule calcium carbonate 600 mg-vitamin tab PO BID 04/03/22 09/27/23 D3 10 mcg (400 unit) chewable tablet (Calcium 600 with Vitamin D3) multivitamin (Daily Multi-Vitamin 1 tab PO QDAY 03/16/23 09/27/23 tablet) magnesium 250 mg tablet 250 mg PO QDAY 08/30/23 09/27/23 Previous Rx's ?Medication ?Instructions ?Recorded omeprazole 20 mg capsule,delayed 20 mg PO BID #180 caps 09/09/23 release catheter 14 Fr (Self-Catheter, #180 ea 09/17/23 Female) conjugated estrogens 0.625 mg/gram 0.625 mg vaginal ONCE #30 grams 09/17/23 vaginal cream lubricants topical gel 1 ea topical 6XD #113 grams 09/17/23 peg 3350-electrolytes 236 240 ml PO Q10M #4,000 mL 11/03/23 gram-22.74 gram-6.74 gram-5.86 gram solution (Golytely) Allergies Allergy/AdvReac Type Severity Reaction Status Date / Time Sulfa drugs Allergy Mild Headache Uncoded 09/27/23 15:34 Review of Systems Status of ROS: Reports: 10 or more systems reviewed and unremarkable except as noted in History and below [facility] Medical History History of invasive ductal carcinoma of breast ?Z85.3 - Personal history of malignant neoplasm of breast (ICD-10) Surgical History History of squamous cell carcinoma excision ?Z98.890 - Other specified postprocedural states (ICD-10) ?Z85.9 - Personal history of malignant neoplasm, unspecified (ICD-10) S/P left breast biopsy (~08/2017) ?Z98.890 - Other specified postprocedural states (ICD-10) S/P breast biopsy, right (~1981) ?Z98.890 - Other specified postprocedural states (ICD-10) History of tubal ligation ?Z98.51 - Tubal ligation status (ICD-10) History of lumpectomy (~09/2017) ?Z98.890 - Other specified postprocedural states (ICD-10) History of appendectomy (2019) ?Z90.49 - Acquired absence of other specified parts of digestive tract (ICD-10) Family History Father Coronary artery disease Uncle Coronary artery disease Aunt Breast cancer in female Social History What is your current living situation?: I presently have a place to live In the past 12 months, utilities in danger of being shut off: no In past 12 months, lack of transportation kept you from medical appts, meetings, work, or getting things needed for daily living: no Highest level of school completed/degree received: some college, no degree Smoking Status: Former smoker Do you use any of these nicotine containing products: None How often do you have a drink containing alcohol: never How often do you have six or more drinks on one occasion: Never AUDIT-C Alcohol total score: 0 Non-prescribed substance use: denies use How often does anyone, including family, friends and others, physically hurt you: never How often does anyone, including family, friends and others, insult or talk down to you: never How often does anyone, including family, friends and others, threaten you with harm: never How often does anyone, including family, friends and others, scream or curse at you: never Little interest or pleasure in doing things: not at all Feeling down, depressed, or hopeless: not at all Do you think of yourself as: straight/heterosexual Gender Identity: female Exam Narrative: Exam Narrative: Well-nourished well-developed patient in no acute distress. Alert and oriented. Answers questions appropriately. Mood and affect are appropriate. Thoughts are goal oriented and rational. No tangential or magical thinking noted. Patient speaks in full sentences without needing to catch her breath. HEENT: Normocephalic atraumatic. Pupils are equally round reactive to light. Extraocular muscles are intact. Conjunctivae are moist without any icterus noted. Moist mucous membranes. Cardiovascular: Heart is regular rate and rhythm S1 and S2 are present without any murmurs. Lungs: Clear to auscultation bilaterally no wheezes rhonchi or rales are appreciated. Patient takes deep breaths without any discomfort. Abdomen: Soft and nondistended with normal bowel sounds. Patient has diffuse mild tenderness which is located periumbilically, epigastric and in the right and left upper quadrants. She has no discomfort in the lower quadrants. Extremities: Bilateral lower extremities are without edema. Skin: Well perfused. Const: Vital Signs, click to edit/add: Vital Signs - 24 hr 11/24/23 14:30 11/24/23 16:16 Temperature 96.4 F L Pulse Rate [Pulse Oximeter] 77 71 Respiratory Rate 20 16 Blood Pressure [Ri ght Upper Arm] 156/73 H 143/75 H Pulse Oximetry 99 99 Oxygen Delivery Me thod Room Air Room Air Course Course ED Course: Blood work was unremarkable aside from a sodium of 128. Abdominal CT scan did not show any findings to explain the discomfort. Patient received a L of normal saline. Vital Signs Vital signs: Initial Vital Signs Temperature 96.4 F L 11/24/23 14:30 Temperature Source Temporal Artery Scan 11/24/23 14:30 Pulse Rate 77 11/24/23 14:30 Respiratory Rate 20 11/24/23 14:30 Blood Pressure 156/73 H 11/24/23 14:30 Blood Pressure Mean 100 11/24/23 14:30 Blood Pressure Position Sitting 11/24/23 14:30 Pulse Oximetry 99 11/24/23 14:30 Oxygen Delivery Method Room Air 11/24/23 14:30 Vital Signs Temperature 96.4 F L 11/24/23 14:30 Pulse Rate 77 11/24/23 14:30 Respiratory Rate 20 11/24/23 14:30 Blood Pressure 156/73 H 11/24/23 14:30 Pulse Oximetry 99 11/24/23 14:30 Oxygen Delivery Method Room Air 11/24/23 14:30 Temperature 96.4 F L 11/24/23 14:30 Pulse Rate 71 11/24/23 16:16 Respiratory Rate 16 11/24/23 16:16 Blood Pressure 143/75 H 11/24/23 16:16 Pulse Oximetry 99 11/24/23 16:16 Oxygen Delivery Method Room Air 11/24/23 16:16 Medical Decision Making MDM Narrative Medical decision making narrative: Abdominal discomfort, 1 day postop colonoscopy. There is no evidence of ulceration or perforation. There is no evidence of infection. There is no evidence of pancreatitis, hepatitis, diverticulitis or other cause abdominal discomfort noted to cause pain. At this time we discussed watchful waiting and symptomatic treatment. Patient was in agreement and had no other questions. Lab Data Lab results reviewed: Yes I reviewed the patient's lab results Labs: Lab Results 11/24/23 11/24/23 11/24/23 Range/Units 15:00 15:02 16:02 WBC 8.54 (4.50-11.00) K/uL RBC 4.35 (4.00-5.20) m/uL Hgb 13.4 (12.0-16.0) gm/dL Hct 39.1 (33.0-51.0) % MCV 90 (80-100) fL MCH 31 (26-34) pg MCHC 34 (32-36) gm/dL RDW Coeff of Randy 11.8 (11.5-15.5) % Plt Count 401 (140-440) K/uL Neut % (Auto) 64.2 (42.0-72.0) % Lymph % (Auto) 26.0 (20-44) % [place] % (Auto) 6.4 (0.0-11.0) % Eos % (Auto) 2.6 (0.0-7.0) % Baso % (Auto) 0.7 (0.0-3.0) % Neut # (Auto) 5.48 (1.7-7.0) K/uL Lymph # (Auto) 2.22 (0.90-2.90) K/uL [place] # (Auto) 0.50 (0.00-0.90) K/UL Eos # (Auto) 0.22 (0.00-0.50) K/uL Baso # (Auto) 0.06 (0.00-0.30) K/uL Abs Immat Gran (auto) 0.01 (0.00-0.30) K/uL Imm/Tot Granulo (auto) 0.1 % Sodium 128 L (135-149) mmol/L Potassium 4.1 (3.6-5.1) mmol/L Chloride 96 (96-114) mmol/L Carbon Dioxide 25 (20-32) mmol/L Anion Gap 7 (7-15) mEq/L BUN 10 (7-30) mg/dL Creatinine 0.6 (0.5-1.5) mg/dL Estimated Creat Clear 42.68 Estimated GFR 96 ml/min Glucose 103 (60-115) mg/dL Lactate 1.4 (0.5-1.9) mmol/L Calcium 9.2 (8.4-10.6) mg/dL Total Bilirubin 0.5 (0.1-1.5) mg/dL Direct Bilirubin 0.2 (0.0-0.5) mg/dL AST 30 (12-35) U/L ALT 30 (4-35) U/L Alkaline Phosphatase 82 (40-150) U/L C-Reactive Protein 0.5 (0.5-1.0) mg/dL Total Protein 7.3 (6.0-8.3) g/dL Albumin 4.6 (3.3-5.0) g/dL Lipase 139 (23-300) U/L Urine Color Yellow (Yellow) Urine Appearance Clear (Clear) Urine pH 6.0 (5.0-8.5) Ur Specific [place] <= 1.005 (1.000-1.030) Urine Protein Negative (Negative) Urine Glucose (UA) Negative (Negative) Urine Ketones Trace A (Negative) Urine Blood Negative (Negative) Urine Nitrite Negative (Negative) Urine Bilirubin Negative (Negative) Urine Urobilinogen 0.2 (0.2-1.0) Ur Leukocyte Esterase 1+ A (Negative) Urine RBC 0-2 (0-2) Urine WBC 5-10 A (0-5) Ur Squamous Epith Cells None (None-Few) Urine Bacteria None (None) POC Creatinine 0.6 (0.6-1.3) mg/dl Imaging Data CT scan - abdomen: Attestation: I have reviewed the pertinent imaging results. Radiologist's impression: CT abdomen and pelvis with intravenous contrast, 72 cc of Isovue 370. Please note that all CT scans at this facility use dose modulation, iterative reconstruction, and/or weight-based dosing when appropriate to reduce radiation dose to as low as reasonably achievable. Comparison: CT abdomen and pelvis December 11, 2019 Findings: Stable 5 millimeter right lower lobe fissural nodule is benign. Small hiatal hernia is again noted. The liver, gallbladder, adrenal glands, pancreas and left kidney are normal. Benign calcification is noted within the spleen. Very small right kidney cyst is identified. Right pelvocaliectasis has decreased since the prior study. Urinary bladder is grossly unremarkable. 30 millimeter exophytic fibroid is present. Pessary is in place. The appendix is surgically absent. There is no bowel obstruction, definite focal bowel wall thickening or inflammatory stranding about the hollow viscera. Distal colonic diverticulosis is again noted. There is no ascites, free air or lymphadenopathy. The abdominal aorta and its major branches are patent and normal in caliber. Soft tissues are unremarkable. Degenerative changes are most prominent at L2-3 and L5-S1. Mild degenerative changes are present within the hips. Impression: No acute intra-abdominal findings. Discharge Plan Discharge Clinical Impression: Abdominal pain, Hyponatremia Patient Disposition: Home, Self-Care Condition: Stable Additional Instructions: Your workup today did not reveal any life-threatening cause of abdominal pain. Okay to take Tylenol or use a heating pad to the abdomen as needed. You did have low sodium levels today, you did receive fluids with sodium in it. I recommend you follow-up with your primary care provider in approximately 5-7 days to have your sodium levels rechecked. Prescriptions: No Action multivitamin [Daily Multi-Vitamin] Tablet 1 tab PO QDAY magnesium 250 mg tablet 250 mg PO QDAY conjugated estrogens 0.625 mg/gram cream 0.625 mg vaginal ONCE Qty: 30 0RF (DME) Self-Catheter, Female 14 Fr misc See Rx Instructions .Route Qty: 180 0RF Rx Instructions: As directed lubricants Gel 1 ea topical 6XD Qty: 113 0RF L. acidophilus/Bifid. animalis 31 billion cell capsule 1 cap PO DAILY omega-3 fatty acids 1,000 mg capsule 1,000 mg PO BID Calcium 600 with Vitamin D3 600 mg-10 mcg (400 unit) tablet,chewable PO BID omeprazole 20 mg capsule,delayed release(DR/EC) 20 mg PO BID Qty: 180 0RF peg 3350-electrolytes [Golytely] 236-22.74-6.74 -5.86 gram recon soln 240 ml PO Q10M Qty: 4000 0RF Rx Instructions: until fecal effluent is clear Follow Up/Referrals: Alyx Caraballo MD [Primary Care Provider] - Stand Alone Forms: MyHealth Info Instructions
--- OUTSIDE RECORDS SUMMARY | 2023-11-24 14:53 | XMS_ITS | Clinical Summary ---
Author Organization [facility] Address [place], [place] [address] Care Team Providers Care Biomechanical Engineer Name Role Phone Pinky Yusuf Jane Kristin [...] otitis media, recurrence not specified Inhale 1 [place] into both nostrils 2 times daily. 1 [...] 08/26/2006 09/12/2010 Tobacco use disorder 08/26/2006 011 Encounters Date Type Department Care Team Description 11/23/2023 Lab Requisition [facility] [phone] Razia Martinez MD from Last 3 Months Immunizations Name Administration Dates Next Due Influenza, [...] 77 11/02/201811/02, 11/01/2013, 09/27/2009 [facility] Additional history exists COVID-19 vaccine series (2022- season) 2023 09/16/2021, 03/31/2021, 09/05/2020, Additional history exists Influenza for age 65+ 02/06/2024 03/27/1999 Tdap Completed 04/26/2008 Procedures Procedure Name Priority Date/Time Associated Diagnosis Comments XR MAMMO BILAT SCREEN FFDM ([place]) Routine 07/19/2013 10:00 AM DISASTER RECOVERY MANAGER Other screening mammogram LIPID PANEL Routine 08/20/2010 9:39 AM CDT Lipid screening from Last 3 Months or Most Recently Relevant to Health Maintenance Results * XR MAMMO BILAT SCREEN FFDM (07/19/2013 10:00 AM DISASTER RECOVERY MANAGER) Anatomical Region Laterality Modality BREASTS, Breast Left, Breast Right Bilateral Mammography Impressions 07/19/2013 12:34 PM DISASTER RECOVERY MANAGER ??There is no radiographic evidence for malignancy. ??Recommend annual mammograms. A lay language report of this examination will be provided to the patient. MAMMOGRAM ASSESSMENT: ??ACR 2 Benign Narrative 07/19/2013 12:34 PM DISASTER RECOVERY MANAGER XR MAMMO BILAT SCREEN FFDM [G0202.0] CLINICAL HISTORY: ??This is an asymptomatic 62 y.o. patient. INDICATION FOR EXAM: Mammogram Screening. TECHNIQUE: CC & MLO views were obtained. ??This digital study was evaluated with the assistance of Computer-Aided Detection. ?? COMPARISON FILMS: Yes 07/04/12 [facility] 09/04/10 [facility] FINDINGS: ??Mammographically, the breast tissue is [...] of Computer-Aided Detection. COMPARISON FILMS: Yes 07/04/12 [facility] 09/04/10 [facility] FINDINGS: Mammographically, the breast tissue is [...] CDT) CHOLESTEROL,TOTAL 183 110 - 199 mg/dL [facility] TRIGLYCERIDES 122 <150 mg/dL [facility] HDL CHOLESTEROL 69 >40 mg/dL [facility] CHOL/HDL RATIO 2.65 <4.51 [facility] LDL CHOLESTEROL 90 <131 mg/dL [facility] PATIENT STATUS Fasting [facility] Blood specimen (specimen) BLOOD SPECIMEN / Unknown 08/20/2010 9:39 AM CDT 08/20/2010 9:28 AM CDT Grace Hutchins HYDRO GENERATION MANAGER CHEMISTRY [facility] [address] [place] [address] from Last 3 Months or Most Recently Relevant to Health Maintenance Care Teams Biomechanical Engineer Relationship Specialty Start Date End Date Melodie Aguilar MD [address] [place] [address] [place] [address] PCP - General Family Practice 04/12/15 Pinky Yusuf CLOCKMAKER APPRENTICE Obstetrics and Gynecology 09/20/12
--- OUTSIDE RECORDS SUMMARY | 2023-11-24 14:53 | XMS_ITS | Referral Summary ---
Author Organization [facility] Address [address] [place] [address] Care Team Providers Care Supervisor Aircraft Cleaning Name Role Phone Jana Hawkins P.A.-C. Primary Care Provider Source Comments Patient records contain information from all sites at [facility]. For routine questions regarding patient records, call [phone] during business hours, M-F 8:00 AM - 5:00 PM Central Time. Record requests for emergency care only can be directed to [phone] at any time.[facility] Encounters Date Type Department Care Team Description 09/29/2023 Orders Only Department of Obstetrics and Gynecology, Division of Urogynecology in [place], [place] [address] [place] [address] Omar eMraz R.N. Cystocele Midline (Primary Dx) from Last 3 Months Allergies Active Allergy Reactions Criticality Noted Date Comments Influenza Virus Vaccines Other (see comments) Medium 04/26/2008 Eye swelling, throat closing Perfume Swelling High 10/10/2012 [place] Sulfa (Sulfonamide Antibiotics) Headache Medium 08/26/2006 Wine [...] from 09/23/2017:Stage IA(pT1c, pN0, cM0, G2, ER+, SC+, HER2-, Oncotype DX score: 15) - Signed by Sunil Torres M.D. on 11/02/2017 Clinical: Unsigned Elevated Blood Pressure 08/22/2015 Gastroesophageal Reflux Disease Without Esophagi tis 07/06/2015 Overview: Overview: [facility] - 06/22 Cystocele 07/06/2015 Overview: Overview: Pessary from [facility] with support Rectocele 10/10/2012 Polyp Colon [...] AM CDT Clinical Communication Virtual Review in [place], [place] 200 [place] [address] 12/27/2023 8:00 AM CDT Procedure visit Department of Obstetrics and Gynecology, Division of Urogynecology in [place], [place] [address] [place] [phone] Davy Sim M.D., M.S. [address] [place] [phone] 12/27/2023 9:30 AM CDT Comprehensive Visit Department of Obstetrics and Gynecology, Division of Urogynecology in [place], [place] [address] [place] [phone] Davy Sim M.D., M.S. [address] [place] [phone] Procedures Procedure Name Priority Date/Time Associated Diagnosis [...] CDT Lynda Perez P.A.-C. LAB BLOOD ADD-ON [facility] [address] [place] [address], [facility] OW[facility] in [place] [address] [place] [address] from Last 3 Months or Most Recently Relevant to Health Maintenance Care Teams Supervisor Aircraft Cleaning Relationship Specialty Start Date End Date Jana Hawkins P.A.-C. [address] [place] [address] [place] [phone] PCP - General Internal Medicine 10/22/22
--- OUTSIDE RECORDS SUMMARY | 2023-11-24 14:53 | XMS_ITS | Clinical Summary ---
Author Organization [facility] Address [address] [place] [address] Care Team Providers Care Derrick Follower Name Role Phone Jana Hawkins P.A.-C. Primary Care Provider Source Comments Patient records contain information from all sites at [facility]. For routine questions regarding patient records, call [phone] during business hours, M-F 8:00 AM - 5:00 PM Central Time. Record requests for emergency care only can be directed to [phone] at any time.[facility] Allergies Active Allergy Reactions Criticality Noted Date Comments Influenza Virus Vaccines Other (see comments) Medium 04/26/2008 Eye swelling, throat closing Perfume Swelling High 10/10/2012 [place] Sulfa (Sulfonamide Antibiotics) Headache Medium 08/26/2006 Wine [...] from 09/23/2017:Stage IA(pT1c, pN0, cM0, G2, ER+, [place]+, HER2-, Oncotype DX score: 15) - Signed by Sunil Torres M.D. on 11/02/2017 Clinical: Unsigned Elevated Blood Pressure 08/22/2015 Gastroesophageal Reflux Disease Without Esophagi tis 07/06/2015 Overview: Overview: Schatzke ring - 06/22 Cystocele 07/06/2015 Overview: Overview: Pessary from [facility] with support Rectocele 10/10/2012 Polyp Colon 10/01/2009 Overview: Overview: Colonoscopy 09/2009 polyps repeat in 5 years Colonoscopy 10/2013 hyperplastic polyp repeat in 5 years Encounters Date Type Department Care Team Description 09/29/2023 Orders Only Department of Obstetrics and Gynecology, Division of Urogynecology in [place], [place] [address] [place] [address] Omar Meraz, RBrendanN. Cystocele Midline (Primary Dx) [...] AM CDT Clinical Communication Virtual Review in [place], [place] [address] [place] [address] 12/27/2023 8:00 AM CDT Procedure visit Department of Obstetrics and Gynecology, Division of Urogynecology in [place], [place] [address] [place] [phone] Davy Sim M.D., M.S. [address] [place] [phone] 12/27/2023 9:30 AM CDT Comprehensive Visit Department of Obstetrics and Gynecology, Division of Urogynecology in [place], [place] [address] [place] [phone] aDvy Sim M.D., M.S. [address] [place] [phone] Health Maintenance Due Date Last Done Comments [...] CDT Lynda Perez P.A.-C. LAB BLOOD ADD-ON [facility] [address] [place] [address], [place] OWAT [facility] in [place] [address] [place] [address] from Last 3 Months or Most Recently Relevant to Health Maintenance Care Teams Derrick Follower Relationship Specialty Start Date End Date Jana Hawkins P.A.-C. [address] [place], [place] [address] [phone] PCP - General Internal Medicine 10/22/22
--- OUTSIDE RECORDS SUMMARY | 2023-11-24 14:53 | XMS_ITS ---
Author Organization [facility] Address [address] [place] [address] Care Team Providers Care Therapeutic Program Worker Name Role Phone Unavailable Unavailable Unavailable Surgery Details Not on file Complications Check Surgery Details section. Procedure Estimated Blood Loss Check Surgery Details section. Procedure Findings Check Surgery Details section. Procedure Specimens Taken Check Surgery Details section.
--- OUTSIDE RECORDS SUMMARY | 2023-11-24 14:53 | XMS_ITS | Encounter Summary ---
Author Organization [facility] Address [address] [place] [address] Care Team Providers Care Business Administration Instructor Name Role Phone Jana Hawkins P.A.-C. Primary Care Provider Reason for Referral * Outpatient (Routine) - Authorized Specialty Diagnoses / Procedures Referred By Christina child Referred To Contact Diagnoses Cystocele Midline Procedures OBG Urodynamic Studies Davy Sim M.D., M.S. [address] [place] [phone] [facility] Referral ID Status Reason Start Date Expiration Date V isits Requested Visits Authorized [id number] Authorized 09/29/2023 09/28/2024 1 1 Encounter Details Date Type Department Care Team (Late st Contact Info) Description 09/29/2023 Orders Only Department of Obstetrics and Gynecology, Division of Urogynecology in [place], [place] [address] [place] [phone] Omar Meraz RCleve [address] [place] [phone] Cystocele Midline (Primary Dx) Social History Tobacco [...] AM CDT Clinical Communication Virtual Review in [place], [place] 200 [place] [address] 12/27/2023 8:00 AM CDT Procedure visit Department of Obstetrics and Gynecology, Division of Urogynecology in [address] [phone] Davy Sim M.D., M.S. [address] [place] [phone] 12/27/2023 9:30 AM CDT Comprehensive Visit Department of Obstetrics and Gynecology, Division of Urogynecology in [address] [phone] Davy Sim M.D., M.S. [address] [place] [phone] Scheduled Orders Name Type Priority Associated Diagnoses Orde r Schedule OBG Urodynamic Studies OB Routine Cystocele Midline Expected: 12/27/2023, Expires: 12/28/2024 documented as of this encounter Visit Diagnoses Diagnosis Cystocele Midline- Primary documented in this encounter Care Teams Business Administration Instructor Relationship Specialty Start Date End Date Jana Hawkins P.A.-C. [address] [place] [address] [place] [phone] PCP - General Internal Medicine 10/22/22 documented as of this encounter
[2023-11-24 15:13] LABS: Creatinine, Point-of-Care* 0.6 mg/dl (0.6-1.3)
[2023-11-24 15:17] LABS: Basophils Absolute Auto 0.06 K/uL (0.00-0.30); Basophils Percent Auto 0.7 % (0.0-3.0); Eosinophils Absolute Auto 0.22 K/uL (0.00-0.50); Eosinophils Percent Auto 2.6 % (0.0-7.0); Hematocrit 39.1 % (33.0-51.0); Hemoglobin* 13.4 gm/dL (12.0-16.0); Immature Granulocytes Abs Auto 0.01 K/uL (0.00-0.30); Immature Granulocytes Pct Auto 0.1 %; Lymphocytes Absolute Auto 2.22 K/uL (0.90-2.90); Mean Corpuscular HGB Conc 34 gm/dL (32-36); Mean Corpuscular Hemoglobin 31 pg (26-34); Mean Corpuscular Volume 90 fL (80-100); Monocytes Percent Auto 6.4 % (0.0-11.0); Neutrophils Absolute Auto 5.48 K/uL (1.7-7.0); Neutrophils Percent Auto 64.2 % (42.0-72.0); Platelet Count* 401 K/uL (140-440); RDW Coefficient of Variation % 11.8 % (11.5-15.5); Red Blood Count 4.35 m/uL (4.00-5.20); White Blood Count* 8.54 K/uL (4.50-11.00)
[2023-11-24 15:25] LABS: Slide Review Reflex No
[2023-11-24 15:47] LABS: Albumin* 4.6 g/dL (3.3-5.0); Chloride* 96 mmol/L (96-114)
[2023-11-24 15:48] LABS: Potassium* 4.1 mmol/L (3.6-5.1); Sodium* 128 mmol/L (135-149)
[2023-11-24 15:50] LABS: Creatinine* 0.6 mg/dL (0.5-1.5); Est. Creatinine Clearance* 42.68; Estimated Glomerular Filt Rate 96 ml/min
[2023-11-24 15:51] LABS: Alanine Aminotransferase* 30 U/L (4-35); Alkaline Phosphatase* 82 U/L (40-150); Anion Gap 7 mEq/L (7-15); Aspartate Amino Transferase* 30 U/L (12-35); Bilirubin Direct* 0.2 mg/dL (0.0-0.5); Bilirubin Total* 0.5 mg/dL (0.1-1.5); Blood Urea Nitrogen* 10 mg/dL (7-30); Calcium* 9.2 mg/dL (8.4-10.6); Carbon Dioxide* 25 mmol/L (20-32); Glucose* 103 mg/dL (60-115); Lipase* 139 U/L (23-300); Total Protein* 7.3 g/dL (6.0-8.3)
[2023-11-24 15:54] LABS: C Reactive Protein* 0.5 mg/dL (0.5-1.0)
[2023-11-24 15:58] LABS: Lactate* 1.4 mmol/L (0.5-1.9)
[2023-11-24 16:07] LABS: Appearance Urine Clear (Clear); Bilirubin Urine Negative (Negative); Blood Urine Negative (Negative); Color Urine Yellow (Yellow); Glucose Urine Negative (Negative); Ketones Urine Trace (Negative); Leukocyte Esterase Urine 1+ (Negative); Nitrite Urine Negative (Negative); Protein Urine Negative (Negative); Specific Gravity Urine <= 1.005 (1.000-1.030); Urobilinogen Urine 0.2 (0.2-1.0)
[2023-11-24 16:16] VITALS: BP 143/75; PULSE 71; RESP 16; O2SAT 99
[2023-11-24 16:35] LABS: RBC Urine 0-2 (0-2)
== END 2023-11-24 17:22 | disposition home or self-care (01) ==
PROVIDERS: Emergency Provider Family Medicine; PCP Internal Medicine
DX: R10.9 Unspecified abdominal pain (principal); E87.1 Hypo-osmolality and hyponatremia
CPT/HCPCS: 36415; 74177; 80048; 80076; 81001; 82565; 83605; 83690; 85025; 86140; 87086; 99283; 99284; Q9967

== ENCOUNTER 2023-12-07 08:40 | Outpatient (CLI) | payer MEDICARE, BC, SELFPAY ==
--- OUTSIDE RECORDS SUMMARY | 2023-12-10 10:08 | XMS_ITS | Referral Summary ---
Author Organization [facility] Address [address] [place] [address] Care Team Providers Care Service Or Work Dispatcher Chief Name Role Phone Jana Hawkins P.A.-C. Primary Care Provider Source Comments Patient records contain information from all sites at [facility]. For routine questions regarding patient records, call [phone] during business hours, M-F 8:00 AM - 5:00 PM Central Time. Record requests for emergency care only can be directed to [phone] at any time.[facility] Encounters Date Type Department Care Team Description 09/29/2023 Orders Only Department of Obstetrics and Gynecology, Division of Urogynecology in [place], [place] [address] [place] [address] Omar Meraz R.N. Cystocele Midline (Primary Dx) from Last 3 Months Allergies Active Allergy Reactions Criticality Noted Date Comments Influenza Virus Vaccines Other (see comments) Medium 04/26/2008 Eye swelling, throat closing Perfume Swelling High 10/10/2012 [place] Sulfa (Sulfonamide Antibiotics) Headache Medium 08/26/2006 Wine [...] Disease Without Esophagi tis 07/06/2015 Overview: Overview: [facility] - 06/22 Cystocele 07/06/2015 Overview: Overview: Pessary from [facility] with support Rectocele 10/10/2012 Polyp Colon 10/01/2009 [...] AM CDT Clinical Communication Virtual Review in [place], [place] 200 [place] [address] 12/27/2023 8:00 AM CDT Procedure visit Department of Obstetrics and Gynecology, Division of Urogynecology in [place], [place] [address] [place] [phone] Davy Sim M.D., M.S. [address] [place] [phone] 12/27/2023 9:30 AM CDT Comprehensive Visit Department of Obstetrics and Gynecology, Division of Urogynecology in [place], [place] [address] [place] [phone] Davy Sim M.D., M.S. [address] [place] [phone] Procedures Procedure Name Priority Date/Time Associated Diagnosis [...] CDT Lynda Perez P.A.-C. LAB BLOOD ADD-ON [facility] [address] [place] [address], [facility] OWAT [facility] in [place] [address] [place] [address] from Last 3 Months or Most Recently Relevant to Health Maintenance Care Teams Service Or Work Dispatcher Chief Relationship Specialty Start Date End Date Jana Hawkins P.A.-C. [address] [place] [address] [place] [phone] PCP - General Internal Medicine 10/22/22
--- OUTSIDE RECORDS SUMMARY | 2023-12-10 10:08 | XMS_ITS | Clinical Summary ---
Author Organization [facility] Address [address] [place] [address] Care Team Providers Care Revolving Inventory Clerk Name Role Phone Jana Hawkins P.A.-C. Primary Care Provider Source Comments Patient records contain information from all sites at [facility]. For routine questions regarding patient records, call [phone] during business hours, M-F 8:00 AM - 5:00 PM Central Time. Record requests for emergency care only can be directed to [phone] at any time.[facility] Allergies Active Allergy Reactions Criticality Noted Date Comments Influenza Virus Vaccines Other (see comments) Medium 04/26/2008 Eye swelling, throat closing Perfume Swelling High 10/10/2012 [place] Sulfa (Sulfonamide Antibiotics) Headache Medium 08/26/2006 Wine [...] from 09/23/2017:Stage IA(pT1c, pN0, cM0, G2, ER+, [place]+, HER2-, Oncotype DX score: 15) - Signed by Sunil Torres M.D. on 11/02/2017 Clinical: Unsigned Elevated Blood Pressure 08/22/2015 Gastroesophageal Reflux Disease Without Esophagi tis 07/06/2015 Overview: Overview: Schatzke ring - 06/22 Cystocele 07/06/2015 Overview: Overview: Pessary from [facility] with support Rectocele 10/10/2012 Polyp Colon 10/01/2009 Overview: Overview: Colonoscopy 09/2009 polyps repeat in 5 years Colonoscopy 10/2013 hyperplastic polyp repeat in 5 years Encounters Date Type Department Care Team Description 09/29/2023 Orders Only Department of Obstetrics and Gynecology, Division of Urogynecology in [place], [place] [address] [place] [address] Omar Meraz, RBrendanN. Cystocele Midline (Primary Dx) [...] AM CDT Clinical Communication Virtual Review in [place], [place] 200 [place] [address] 12/27/2023 8:00 AM CDT Procedure visit Department of Obstetrics and Gynecology, Division of Urogynecology in [place], [place] [address] [place] [phone] Davy Sim M.D., M.S. [address] [place] [phone] 12/27/2023 9:30 AM CDT Comprehensive Visit Department of Obstetrics and Gynecology, Division of Urogynecology in [place], [place] [address] [place] [phone] Davy Sim M.D., M.S. [address] [place] [phone] Health Maintenance Due Date Last Done Comments [...] 65+ (or Medicare and <65) 10/23/2023 10/22/2022 Influenza Vaccine (#1) 2024 3, 03/30/2022, 03/11/2021, Additional history exists Fasting Glucose for Diabetes Screening 10/22/2025 10/22/2022, 10/22/2022 DTaP,Tdap,and Td Vaccines (3 - Td or Tdap) 08/19/2027 08/18/2017, 04/26/2008 Hepatitis A Vaccines Completed 12/06/2003, 06/04/20 Pneumococcal vaccine (65+ years) Completed 08/29/2018, 08/26/2017, 05/17/2003 Procedures Procedure Name Priority Date/Time Associated Diagnosis [...] CDT Lynda Perez P.A.-C. LAB BLOOD ADD-ON [facility] [address] [place] [address], [place] [facility] in [place] [address] [place] [address] from Last 3 Months or Most Recently Relevant to Health Maintenance Care Teams Revolving Inventory Clerk Relationship Specialty Start Date End Date Jana Hawkins P.A.-C. [address] [place] [phone] PCP - General Internal Medicine 10/22/22
--- OUTSIDE RECORDS SUMMARY | 2023-12-10 10:08 | XMS_ITS ---
Author Organization [facility] Address [address] [place] [address] Care Team Providers Care Supervisory Geographer Name Role Phone Unavailable Unavailable Unavailable Surgery Details Not on file Complications Check Surgery Details section. Procedure Estimated Blood Loss Check Surgery Details section. Procedure Findings Check Surgery Details section. Procedure Specimens Taken Check Surgery Details section.
--- OUTSIDE RECORDS SUMMARY | 2023-12-10 10:09 | XMS_ITS | Encounter Summary ---
Author Organization [facility] Address [address] [place] [address] Care Team Providers Care Clinical Informatics Physician Name Role Phone Jana Hawkins P.A.-C. Primary Care Provider Reason for Referral * Outpatient (Routine) - Authorized Specialty Diagnoses / Procedures Referred By Christina child Referred To Contact Diagnoses Cystocele Midline Procedures OBG Urodynamic Studies Davy Sim M.D., M.S. [address] [place] [phone] [facility] Referral ID Status Reason Start Date Expiration Date V isits Requested Visits Authorized [id number] Authorized 09/29/2023 09/28/2024 1 1 Encounter Details Date Type Department Care Team (Late st Contact Info) Description 09/29/2023 Orders Only Department of Obstetrics and Gynecology, Division of Urogynecology in [place], [place] [address] [place] [phone] Omar Meraz RCleve [address] [place] [phone] Cystocele Midline (Primary Dx) Social History Tobacco [...] AM CDT Clinical Communication Virtual Review in [place], [place] 200 [place] [address] 12/27/2023 8:00 AM CDT Procedure visit Department of Obstetrics and Gynecology, Division of Urogynecology in [address] [phone] Davy Sim M.D., M.S. [address] [place] [phone] 12/27/2023 9:30 AM CDT Comprehensive Visit Department of Obstetrics and Gynecology, Division of Urogynecology in [address] [phone] Davy Sim M.D., M.S. [address] [place] [phone] Scheduled Orders Name Type Priority Associated Diagnoses Orde r Schedule OBG Urodynamic Studies OB Routine Cystocele Midline Expected: 12/27/2023, Expires: 12/28/2024 documented as of this encounter Visit Diagnoses Diagnosis Cystocele Midline- Primary documented in this encounter Care Teams Clinical Informatics Physician Relationship Specialty Start Date End Date Jana Hawkins P.A.-C. [address] [place] [address] [place] [phone] PCP - General Internal Medicine 10/22/22 documented as of this encounter
--- OUTSIDE RECORDS SUMMARY | 2023-12-10 10:09 | XMS_ITS | Clinical Summary ---
Author Organization [facility] Address [place], [place] [address] Care Team Providers Care Profiling Machine Operator Name Role Phone Pinky Yusuf Jane Kristin [...] otitis media, recurrence not specified Inhale 1 [place] into both nostrils 2 times daily. 1 [...] prolapse, female, acquired 07/06/2015 Overview: Pessary from [facility] with support Hiatal hernia with GERD [...] Department Care Team Description 11/23/2023 Lab Requisition [facility] [phone] Razia Martinez MD from Last 3 Months [...] Procedure Name Priority Date/Time Associated Diagnosis Comments LAB TRACKING EVENT Routine 11/23/2023 9: 20 AM CDT PATH TISSUE EXAM Routine 11/23/2023 9:20 AM CDT XR MAMMO BILAT SCREEN FFDM (IA) Routine 07/19/2013 10:00 AM READING RECOVERY TEACHER Other screening mammogram LIPID PANEL Routine 08/20/2010 9:39 AM CDT Lipid screening from Last 3 Months or Most Recently Relevant to Health Maintenance Results * LAB TRACKING EVENT (11/23/2023 9:20 AM CDT) Other (Other) Client Collect / Unknown 11/23/2023 9:20 AM CDT 11/23/2023 10:05 PM CDT Razia Martinez MD LAB BILL ONLY [facility] [address] [place] [address], * PATH TISSUE EXAM (11/23/2023 9:20 AM CDT) Case Report Pathology Report ?Case: [id number] ? Authorizing Provider: ??Razia Martinez MD ??Collected: ? 11/23/2023 0920 ? Ordering Location: ? [facility] ?Received: ?11/24/2023 1212 ? Pathologist: ? Duarte Tinajero MD ? Specimen: ?Ascending Colon Polyp ? 11/25/2023 11:28 AM CDT [facility] Final Diagnosis A) COLON, ASCENDING, POLYPECTOMY: 1. Tubular adenoma 2. Negative for high grade dysplasia 3. Per the colonoscopy report: ?? a. Polyp size: 4 mm ?? b. Resection: Complete ?? c. Retrieval: Complete 11/25/2023 11:28 AM T [facility] Clinical Information Ms. Montalvo is a 73 y.o. with history of colon polyps who undergoes high risk colon cancer surveillance. 1 polypectomy is performed. 11/25/2023 11:28 AM CDT [facility] Gross Description A) Received in formalin are 2 hartmann mucosal fragments averaging 5 mm in greatest dimension, which are entirely submitted in one cassette. It is labeled with the patient's name and designated ascending polyp. Randolph Esparza 11/24/2023 1:28 PM 11/25/2023 11:28 AM T [facility] Microscopic Description The final diagnosis is based on microscopic examination of appropriate sections of all specimens. 11/25/2023 11:28 AM CDT [facility] Additional Information Interpreted at [facility] - [address], [place] [address] 11/25/2023 11:28 AM T [facility] Other (Ascending Colon Polyp) 11/23/2023 9:20 AM CDT 11/24/2023 12:12 PM CDT Razia Martinez MD PATHOLOGY/CYTOLO GY [facility] [address] [place] [address], * XR MAMMO BILAT SCREEN FFDM (07/19/2013 10:00 AM READING RECOVERY TEACHER) Anatomical Region Laterality Modality BREASTS, Breast Left, Breast Right Bilateral Mammography Impressions 07/19/2013 12:34 PM READING RECOVERY TEACHER ??There is no radiographic evidence for malignancy. ??Recommend annual mammograms. A lay language report of this examination will be provided to the patient. MAMMOGRAM ASSESSMENT: ??ACR 2 Benign Narrative 07/19/2013 12:34 PM READING RECOVERY TEACHER XR MAMMO BILAT SCREEN FFDM [G0202.0] CLINICAL HISTORY: ??This is an asymptomatic 62 y.o. patient. INDICATION FOR EXAM: Mammogram Screening. TECHNIQUE: CC & MLO views were obtained. ??This digital study was evaluated with the assistance of Computer-Aided Detection. ?? COMPARISON FILMS: Yes 07/04/12 [facility] 09/04/10 [facility] FINDINGS: ??Mammographically, the breast tissue is heterogeneously [...] of Computer-Aided Detection. COMPARISON FILMS: Yes 07/04/12 [facility] 09/04/10 [facility] FINDINGS: Mammographically, the breast tissue is heterogeneously [...] CDT) CHOLESTEROL,TOTAL 183 110 - 199 mg/dL [facility] TRIGLYCERIDES 122 <150 mg/dL [facility] HDL CHOLESTEROL 69 >40 mg/dL [facility] CHOL/HDL RATIO 2.65 <4.51 [facility] LDL CHOLESTEROL 90 <131 mg/dL [facility] PATIENT STATUS Fasting [facility] Blood specimen (specimen) BLOOD SPECIMEN / Unknown 08/20/2010 9:39 AM CDT 08/20/2010 9:28 AM CDT Grace Hutchins DIAMOND MOUNTER CHEMISTRY [facility] [address] [place] [address] from Last 3 Months or Most Recently Relevant to Health Maintenance Care Teams Profiling Machine Operator Relationship Specialty Start Date End Date Melodie Aguilar MD [address] [place] [address] PCP - General Family Practice 04/12/15 Pinky Yusuf ADMINISTRATIVE DIRECTOR Obstetrics and Gynecology 09/20/12
== END 2023-12-07 08:41 | disposition home or self-care (01) ==
LOC: NFLDREF 12-10 10:04
PROVIDERS: PCP Internal Medicine; Referring Provider Internal Medicine; Visit Provider Internal Medicine
DX: E87.1 Hypo-osmolality and hyponatremia (principal)
CPT/HCPCS: 84295

== ENCOUNTER 2023-12-13 10:11 | Outpatient (CLI) | payer MEDICARE, BC, SELFPAY ==
--- OUTSIDE RECORDS SUMMARY | 2023-12-13 10:14 | XMS_ITS ---
Author Organization [facility] Address [address] [place] [address] Care Team Providers Care Mailroom Clerk Name Role Phone Unavailable Unavailable Unavailable Surgery Details Not on file Complications Check Surgery Details section. Procedure Estimated Blood Loss Check Surgery Details section. Procedure Findings Check Surgery Details section. Procedure Specimens Taken Check Surgery Details section.
--- OUTSIDE RECORDS SUMMARY | 2023-12-13 10:14 | XMS_ITS | Referral Summary ---
Author Organization [facility] Address [address] [place] [address] Care Team Providers Care Proposal Coordinator Name Role Phone Jana Hawkins P.A.-C. Primary Care Provider Source Comments Patient records contain information from all sites at [facility]. For routine questions regarding patient records, call [phone] during business hours, M-F 8:00 AM - 5:00 PM Central Time. Record requests for emergency care only can be directed to [phone] at any time.[facility] Encounters Date Type Department Care Team Description 09/29/2023 Orders Only Department of Obstetrics and Gynecology, Division of Urogynecology in [place], [place] [address] [place] [address] Omar Meraz R.N. Cystocele Midline (Primary Dx) from Last 3 Months Allergies Active Allergy Reactions Criticality Noted Date Comments Influenza Virus Vaccines Other (see comments) Medium 04/26/2008 Eye swelling, throat closing Perfume Swelling High 10/10/2012 [place] Sulfa (Sulfonamide Antibiotics) Headache Medium 08/26/2006 Wine [...] from 09/23/2017:Stage IA(pT1c, pN0, cM0, G2, ER+, [place]+, HER2-, Oncotype DX score: 15) - Signed by Sunil Torres M.D. on 11/02/2017 Clinical: Unsigned Elevated Blood Pressure 08/22/2015 Gastroesophageal Reflux Disease Without Esophagi tis 07/06/2015 Overview: Overview: [facility] - 06/22 Cystocele 07/06/2015 Overview: Overview: Pessary from [facility] with support Rectocele 10/10/2012 Polyp Colon [...] AM CDT Clinical Communication Virtual Review in [place], [place] [address] [place] [address] 12/27/2023 8:00 AM CDT Procedure visit Department of Obstetrics and Gynecology, Division of Urogynecology in [place], [place] [address] [place] [phone] Davy Sim M.D., M.S. [address] [place] [phone] 12/27/2023 9:30 AM CDT Comprehensive Visit Department of Obstetrics and Gynecology, Division of Urogynecology in [place], [place] [address] [place] [phone] Davy Sim M.D., M.S. [address] [place] [phone] Procedures Procedure Name Priority Date/Time Associated Diagnosis [...] CDT Lynda Perez P.A.-C. LAB BLOOD ADD-ON [facility] [address] [place] [address], [facility] in [place] [address] [place] [address] from Last 3 Months or Most Recently Relevant to Health Maintenance Care Teams Proposal Coordinator Relationship Specialty Start Date End Date Jana Hawkins P.A.-C. [address] [place] [address] [place] [phone] PCP - General Internal Medicine 10/22/22
--- OUTSIDE RECORDS SUMMARY | 2023-12-13 10:14 | XMS_ITS | Clinical Summary ---
Author Organization [facility] Address [address] [place] [address] Care Team Providers Care Patient Access Specialist Name Role Phone Jana Hawkins P.A.-C. Primary Care Provider Source Comments Patient records contain information from all sites at [facility]. For routine questions regarding patient records, call [phone] during business hours, M-F 8:00 AM - 5:00 PM Central Time. Record requests for emergency care only can be directed to [phone] at any time.[facility] Allergies Active Allergy Reactions Criticality Noted Date Comments Influenza Virus Vaccines Other (see comments) Medium 04/26/2008 Eye swelling, throat closing Perfume Swelling High 10/10/2012 [place] Sulfa (Sulfonamide Antibiotics) Headache Medium 08/26/2006 Wine [...] 06/22 Cystocele 07/06/2015 Overview: Overview: Pessary from [facility] with support Rectocele 10/10/2012 Polyp Colon 10/01/2009 Overview: Overview: Colonoscopy 09/2009 polyps repeat in 5 years Colonoscopy 10/2013 hyperplastic polyp repeat in 5 years Encounters Date Type Department Care Team Description 09/29/2023 Orders Only Department of Obstetrics and Gynecology, Division of Urogynecology in [place], [place] [address] [place] [address] Omar Meraz, RBrendanN. Cystocele Midline (Primary Dx) [...] AM CDT Clinical Communication Virtual Review in [place], [place] [address] [place] [phone] 12/27/2023 8:00 AM CDT Procedure visit Department of Obstetrics and Gynecology, Division of Urogynecology in [place], [place] [address] [place] [phone] Davy Sim M.D., M.S. [address] [place] [phone] 12/27/2023 9:30 AM CDT Comprehensive Visit Department of Obstetrics and Gynecology, Division of Urogynecology in [place], [place] [address] [place] [phone] Davy Sim M.D., M.S. [address] [place] [phone] Health Maintenance Due Date Last Done Comments [...] CDT Lynda Perez P.A.-C. LAB BLOOD ADD-ON [facility] [address] [place] [address], [place] OW[facility] in [place] [address] [place] [address] from Last 3 Months or Most Recently Relevant to Health Maintenance Care Teams Patient Access Specialist Relationship Specialty Start Date End Date Jana Hawkins P.A.-C. [address] [place] [phone] PCP - General Internal Medicine 10/22/22
--- OUTSIDE RECORDS SUMMARY | 2023-12-13 10:14 | XMS_ITS | Encounter Summary ---
Author Organization [facility] Address [address] [place] [address] Care Team Providers Care Specimen Processor Name Role Phone Jana Hawkins P.A.-C. Primary Care Provider Reason for Referral * Outpatient (Routine) - Authorized Specialty Diagnoses / Procedures Referred By Christina child Referred To Contact Diagnoses Cystocele Midline Procedures OBG Urodynamic Studies Davy Sim M.D., M.S. [address] [place] [phone] [facility] Referral ID Status Reason Start Date Expiration Date V isits Requested Visits Authorized [id number] Authorized 09/29/2023 09/28/2024 1 1 Encounter Details Date Type Department Care Team (Late st Contact Info) Description 09/29/2023 Orders Only Department of Obstetrics and Gynecology, Division of Urogynecology in [place], [place] [address] [place] [phone] Omar Meraz RCleve [address] [place] [phone] Cystocele Midline (Primary Dx) Social History Tobacco [...] AM CDT Clinical Communication Virtual Review in [place], [place] 200 [place] [address] 12/27/2023 8:00 AM CDT Procedure visit Department of Obstetrics and Gynecology, Division of Urogynecology in [address] [phone] Davy Sim M.D., M.S. [address] [place] [phone] 12/27/2023 9:30 AM CDT Comprehensive Visit Department of Obstetrics and Gynecology, Division of Urogynecology in [address] [phone] Davy Sim M.D., M.S. [address] [place] [phone] Scheduled Orders Name Type Priority Associated Diagnoses Orde r Schedule OBG Urodynamic Studies OB Routine Cystocele Midline Expected: 12/27/2023, Expires: 12/28/2024 documented as of this encounter Visit Diagnoses Diagnosis Cystocele Midline- Primary documented in this encounter Care Teams Specimen Processor Relationship Specialty Start Date End Date Jana Hawkins P.A.-C. [address] [place] [address] [place] [address] PCP - General Internal Medicine 10/22/22 documented as of this encounter
--- OUTSIDE RECORDS SUMMARY | 2023-12-13 10:14 | XMS_ITS | Clinical Summary ---
Author Organization [facility] Address [place], [place] [address] Care Team Providers Care Die Trouble Shooter Name Role Phone Pinky Yusuf Jane Kristin [...] otitis media, recurrence not specified Inhale 1 [place] into both nostrils 2 times daily. 1 [...] prolapse, female, acquired 07/06/2015 Overview: Pessary from [facility] with support Hiatal hernia with GERD 07/06/2015 [...] Department Care Team Description 11/23/2023 Lab Requisition [facility] [phone] Razia Martinez MD from Last 3 Months [...] 77 11/02/201811/02, 11/01/2013, 09/27/2009 ([facility]), Additional history exists COVID-19 vaccine series (2022- season) 2023 09/16/2021, 03/31/2021, 09/05/2020, Additional history exists Influenza for age 65+ 02/06/2024 03/27/1999 Tdap Completed 04/26/2008 Procedures Procedure Name Priority Date/Time Associated Diagnosis Comments LAB TRACKING EVENT Routine 11/23/2023 9: 20 AM CDT PATH TISSUE EXAM Routine 11/23/2023 9:20 AM CDT XR MAMMO BILAT SCREEN FFDM (IA) Routine 07/19/2013 10:00 AM SHAPER SET UP OPERATOR Other screening mammogram LIPID PANEL Routine 08/20/2010 9:39 AM CDT Lipid screening from Last 3 Months or Most Recently Relevant to Health Maintenance Results * LAB TRACKING EVENT (11/23/2023 9:20 AM CDT) Other (Other) Client Collect / Unknown 11/23/2023 9:20 AM CDT 11/23/2023 10:05 PM CDT Razia Martinez MD LAB BILL ONLY [facility] [address] [place] [address], * PATH TISSUE EXAM (11/23/2023 9:20 AM CDT) Case Report Pathology Report ?Case: [id number] ? Authorizing Provider: ??Razia Martinez MD ??Collected: ? 11/23/2023 0920 ? Ordering Location: ? [facility] ?Received: ?11/24/2023 1212 ? Pathologist: ? Duarte Tinajero MD ? Specimen: ?Ascending Colon Polyp ? 11/25/2023 11:28 AM CDT [facility] Final Diagnosis A) COLON, ASCENDING, POLYPECTOMY: 1. Tubular adenoma 2. Negative for high grade dysplasia 3. Per the colonoscopy report: ?? a. Polyp size: 4 mm ?? b. Resection: Complete ?? c. Retrieval: Complete 11/25/2023 11:28 AM T [facility] Clinical Information Ms. Montalvo is a 73 y.o. with history of colon polyps who undergoes high risk colon cancer surveillance. 1 polypectomy is performed. 11/25/2023 11:28 AM CDT [facility] Gross Description A) Received in formalin are 2 hartmann mucosal fragments averaging 5 mm in greatest dimension, which are entirely submitted in one cassette. It is labeled with the patient's name and designated ascending polyp. Randolph Esparza 11/24/2023 1:28 PM 11/25/2023 11:28 AM T [facility] Microscopic Description The final diagnosis is based on microscopic examination of appropriate sections of all specimens. 11/25/2023 11:28 AM CDT [facility] Additional Information Interpreted at [facility] - [address], [place] [address] 11/25/2023 11:28 AM T [facility] Other (Ascending Colon Polyp) 11/23/2023 9:20 AM CDT 11/24/2023 12:12 PM CDT Razia Martinez MD PATHOLOGY/CYTOLO GY [facility] [address] [place] [address], * XR MAMMO BILAT SCREEN FFDM (07/19/2013 10:00 AM SHAPER SET UP OPERATOR) Anatomical Region Laterality Modality BREASTS, Breast Left, Breast Right Bilateral Mammography Impressions 07/19/2013 12:34 PM SHAPER SET UP OPERATOR ??There is no radiographic evidence for malignancy. ??Recommend annual mammograms. A lay language report of this examination will be provided to the patient. MAMMOGRAM ASSESSMENT: ??ACR 2 Benign Narrative 07/19/2013 12:34 PM SHAPER SET UP OPERATOR XR MAMMO BILAT SCREEN FFDM [G0202.0] CLINICAL HISTORY: ??This is an asymptomatic 62 y.o. patient. INDICATION FOR EXAM: Mammogram Screening. TECHNIQUE: CC & MLO views were obtained. ??This digital study was evaluated with the assistance of Computer-Aided Detection. ?? COMPARISON FILMS: Yes 07/04/12 [facility] 09/04/10 [facility] FINDINGS: ??Mammographically, the breast tissue is heterogeneously [...] of Computer-Aided Detection. COMPARISON FILMS: Yes 07/04/12 [facility] 09/04/10 [facility] FINDINGS: Mammographically, the breast tissue is heterogeneously [...] CDT) CHOLESTEROL,TOTAL 183 110 - 199 mg/dL [facility] TRIGLYCERIDES 122 <150 mg/dL [facility] HDL CHOLESTEROL 69 >40 mg/dL [facility] CHOL/HDL RATIO 2.65 <4.51 [facility] LDL CHOLESTEROL 90 <131 mg/dL [facility] PATIENT STATUS Fasting [facility] Blood specimen (specimen) BLOOD SPECIMEN / Unknown 08/20/2010 9:39 AM CDT 08/20/2010 9:28 AM CDT Grace Hutchins AUTOMOTIVE INTERNET SALES MANAGER CHEMISTRY [facility] [address] [place] [address] from Last 3 Months or Most Recently Relevant to Health Maintenance Care Teams Die Trouble Shooter Relationship Specialty Start Date End Date Melodie Aguilar MD [address] [place] [address] PCP - General Family Practice 04/12/15 Pinky Yusuf GROCERY STORE ASSOCIATE Obstetrics and Gynecology 09/20/12
--- NOTE | 2023-12-13 10:15 | CRLHL7_ITS ---
For Patients: As a result of the Cures Act, medical imaging exams and procedure reports are released immediately into your electronic medical record. You may view this report before your referring provider. If you have questions, please contact your health care provider. BILATERAL SCREENING MAMMOGRAM WITH COMPUTER-AIDED DETECTION AND TOMOSYNTHESIS TECHNIQUE: CC and MLO views were obtained. These mammographic images have been obtained using full-field digital technique. These mammographic images were interpreted with the benefit of computer-aided detection. Breast Tomosynthesis was used in this interpretation. COMPARISON FILM: 12/10/22, 11/26/21, 11/19/20. FINDINGS: The breasts are heterogeneously dense, which may obscure small masses IMPRESSION: There is no radiographic evidence for malignancy. ASSESSMENT: BI-RADS Category 2: Benign RECOMMENDATION: Routine screening mammogram in 1 year. A lay language report of this examination will be provided to the patient. NAOMI HENDRICKS M.D. Diagnostic/Nuclear Medicine Radiologist [email or web address] TYLER:[email or web address] Transcribed: 12:44 p.mBrendan maciel/Dictated by: Naomi Hendricks MD @ 12/16/2023 8:37:00 AM (Electronically Signed)
== END 2023-12-13 10:12 | disposition home or self-care (01) ==
LOC: MAMMO 10:11
PROVIDERS: PCP Internal Medicine; Visit Provider Internal Medicine
DX: Z12.31 Encounter for screening mammogram for malignant neoplasm of breast (principal); R92.2 Inconclusive mammogram
CPT/HCPCS: 77063; 77067

== ENCOUNTER 2024-05-11 08:24 | Outpatient (CLI) | payer MEDICARE, BC, SELFPAY ==
--- OUTSIDE RECORDS SUMMARY | 2024-05-15 02:34 | XMS_ITS | Encounter Summary ---
Author Organization [facility] Address [address] [place] [address] Care Team Providers Care Stock Mixer Name Role Phone Jana Hawkins P.A.-CBrendan Primary Care Pro vider Reason for Referral * Outpatient (Routine) - Authorized Specialty Diagnoses / Procedures Referred By Contac t Referred To Contact Jana Hawkins MPAS PBrendanA.-C. [address] [place] [address] Phone: tel: fax: [facility] Region Referral ID Status Reason Start Date Expiration Date V isits Requested Visits Authorized [id number] Authorized 04/11/2024 10/11/2025 1 1 Scheduling Instructions Nurse AWV Do not schedule prior to due date to ensure insurance coverage Visit: Medicare Annual Wellness Never done. TATION WIREMAN Encounter Details Date Type Department Care Team (Late st Contact Info) Description 04/11/2024 Orders Only [facility] PCP [facility] Jana Hawkins MPAS, P.A.-C. [address] [place] [address] Social History Tobacco Use Types Packs/Day Years Used Date Smoking Tobacco: Former Cigarettes 1 94 0 12/06/1972 - 12/25/2019 Passive Smoke Exposure: Never Smokeless Tobacco: Never Alcohol Use Standard Drinks/Week Comments Not Currently 0 (1 standard drink = 0.6 oz pur e alcohol) [facility] Utilities Answer Date Recorded In the past 12 months has e [employer], gas, oil, or water company threatened to shut off services in your home? No 03/09/2024 Humiliation, Afraid, Rape, and Kick questionnair e Answer Date Recorded Within the last year, have y ou been afraid of your partner or ex-partner? No 03/09/2024 Within the last year, have y ou been humiliated or emotionally abused in other ways by your partner or ex-partner? No Within the last year, have y ou been kicked, hit, slapped, or otherwise physically hurt by your partner or ex-partner? No 03/09/2024 Within the last year, have y ou been raped or forced to have any kind of sexual activity by your partner or ex-partner? No 03/09/2024 PHQ-2 Answer Date Recorded PHQ-2 Score 0 02/14/2024 Exercise Vital Sign Answer Date Recorde d On average, how many days pe r week do you engage in moderate to strenuous exercise (like a brisk walk)? 5 days 12/24/2023 On average, how many minutes do you engage in exercise at this level? 60 min 12/24/2023 Hunger Vital Sign Answer Date Recorded Within the past 12 months, y ou worried that your food would run out before you got the money to buy more. Never true 03/09/20 24 Within the past 12 months, t he food you bought just didn't last and you didn't have money to get more. Never true 03/09/2024 PRAPARE - Transportation Answer Date Re corded In the past 12 months, has l ack of transportation kept you from medical appointments or from getting medications? No 08/2023 In the past 12 months, has l ack of transportation kept you from meetings, work, or from getting things needed for daily living? No 03/09/2024 Nutrition Answer Date Recorded On average, how many serving s of fruits and vegetables do you eat per day (serving size is equal to 1 cup or approximately the size of a tennis ball)? 3-5 12/24/2023 Dental Answer Date Recorded Dental: Regular Dentist Yes 12/24/19 24 Employment Answer Date Recorded Employment status Retired 12/24/2023 Housing Stability Answer Date Recorded What is your living situation today? 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 [address] [place], [place] [address] [address] PCP - General Internal Medicine 10/22/22 documented as of this encounter
--- OUTSIDE RECORDS SUMMARY | 2024-05-15 02:34 | XMS_ITS | Encounter Summary ---
Author Organization [facility] Address [address] [place] [id number] Care Team Providers Care Network Architect Name Role Phone Jana Hawkins P.A.-C. Primary Care Pro vider Reason for Visit * Reason Onset Date Comments Communication 03/20/2024 Encounter Details Date Type Department Care Team (Latest Contact Info) Description 03/20/2024 Clinical Communication Department of Obstetrics and Gynecology, Division of Urogynecology in [place], [place] [address] [place] [address] Davy Sim M.D., M.S. [address] [place] [address] Communication Social History Tobacco Use Types Packs/Day Years Used Date Smoking Tobacco: Former Cigarettes 1 94 0 12/06/1972 - 12/25/2019 Passive Smoke Exposure: Never Smokeless Tobacco: Never Alcohol Use Standard Drinks/Week Comments Not Currently 0 (1 standard drink = 0.6 oz pur e alcohol) [facility] Utilities Answer Date Recorded In the past 12 months has e electric, gas, oil, or water company threatened to [...] money to buy more. Never true 03/09/20 Within the past 12 months, t he [...] Date Recorded Dental: Regular Dentist Yes 12/24/19 Employment Answer Date Recorded Employment status Retired 12/24/2023 Housing Stability Answer Date Recorded What is your living situation today? I have a [facility] place to live 03/09/2024 Comments No Sex and Gender Information Value Date Recorded Sex Assigned at Female 10/06/2023 6:16 PM CDT Legal Sex Female 9:58 PM DRUG COORDINATOR Gender Identity Female 10/14/2017 8:36 AM CDT Sexual Orientation Straight 10/14/2017 8: 36 AM CDT documented as of this encounter Miscellaneous Notes * Telephone Encounter - Chante Lawson M.D. - 03/20/2024 3:41 PM CDT Return phone call to Camilla. She is on her 2nd to last day of p.o. antibiotics for UTI, is overall feeling improved from an infection standpoint. No longer having suprapubic discomfort, dysuria. She is having some irritation and burning of the vulva and is not sure why that is happening. She has been able to void increasing amounts spontaneously. Yesterday, she spontaneously voided 300 mL and then catheterization for 300. Voided 200 mL then catheterization for 400. Voided 500 mL then catheterization for 200. I informed her that I was overall encouraged by her ability to void higher volume spontaneously and suspect she will only need to keep cathing for a few additional days to a week. I asked her to inform us when she is consistently cathing for 200 mL or less. For her vulvar irritation, I recommended she place a barrier cream on the vulva such as Aquaphor Vaseline. She will try this. She otherwise is doing well, pain is well controlled, she is eating and drinking without issue, she is passing bowel movements. We will continue to follow up on her ability to urinate spontaneously. Chante Lawson MD Urogynecology Fellow, PGY-7 Pager #[phone] 03/20/2024 3:43 PM CDT documented in this encounter Plan of Treatment Not on file documented as of this encounter Visit Diagnoses Not on filedocumented in this encounter Care Teams Network Architect Relationship Specialty Start Date End Date Jana Hawkins MPAS, P.A.-C. [address] [facility] [place] [phone] PCP - General Internal Medicine 10/22/22 documented as of this encounter
--- OUTSIDE RECORDS SUMMARY | 2024-05-15 02:34 | XMS_ITS | Encounter Summary ---
Author Organization [facility] Address [address] [place] [id number] Care Team Providers Care Insurance Business Analyst Name Role Phone Jana Hawkins P.A.-C. Primary Care Pro vider Encounter Details Date Type Department Care Team (Late st Contact Info) Description 03/29/2024 Orders Only Department of Obstetrics and Gynecology, Division of Gynecologic Oncology in [place], [place] [address] [place] [address] Megan Soares M.D. [address] [place] [phone] Social History Tobacco Use Types Packs/Day Years Used Date Smoking Tobacco: Former Cigarettes 1 94 0 12/06/1972 - 12/25/2019 Passive Smoke Exposure: Never Smokeless Tobacco: Never Alcohol Use Standard Drinks/Week Comments Not Currently 0 (1 standard drink = 0.6 oz pur e alcohol) [facility] Utilities Answer Date Recorded In the [...] your living situation today? 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 [facility] [phone] PCP - General Internal Medicine 10/22/22 documented as of this encounter
--- OUTSIDE RECORDS SUMMARY | 2024-05-15 02:34 | XMS_ITS | Encounter Summary ---
Author Organization [facility] Address [address] [place] [phone] Care Team Providers Care Websphere Architect Name Role Phone Jana Hawkins P.A.-C. Primary Care Pro vider Encounter Details Date Type Department Care Team (Latest Contact Info) Description 03/24/2024 Clinical Communication Department of Obstetrics and Gynecology, Division of Urogynecology in [place], [place] [address] [place] [address] Omar Meraz RCleve [address] [place] [phone] Social History Tobacco Use Types Packs/Day Years Used Date Smoking Tobacco: Former Cigarettes 1 94 0 12/06/1972 - 12/25/2019 Passive Smoke Exposure: Never Smokeless Tobacco: Never Alcohol Use Standard Drinks/Week Comments Not Currently 0 (1 standard drink = 0.6 oz pur e alcohol) [facility] Utilities Answer Date Recorded In the past 12 months has e [employer], gas, oil, or water [employer] threatened to shut off services in your [...] your living situation today? 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 - 03/24/2024 8:44 AM CDT Information Discussed I contacted Camilla for an update on her progress. Camilla is well known to the [facility]. She is status post Vaginal Hysterectomy, Bilateral Salpingo- Oophorectomy, Enterocele Repair/Vaginal Colpopexy, Anterior Repair, Posterior Repair, and Cystoscopy by Dr. Sim on 03/09/2024. Camilla reportsthat her pain is tolerable. She continues to rotate Tylenol and Advil as needed. We reviewed that this is fine. She notes that her posterior repair is sore. She states that the stitches feel tight, similar to an episiotomy. We reviewed that this is a normal finding. She should continue to use heat and ice therapy to help with this pain. Camilla states that her bladder is working well. She is voiding on her own without difficulty. She does feel that her bladder is empty with each void. Camilla is having bowel movements without difficulty. She has applied the [place] ointment to her hemorrhoidal tissue and states that this has helped tremendously. Camilla has not concerns at this time. PLAN I have reviewed the following with Camilla. I have asked her to contact our office with any questions or concerns. Camilla verbalizes understanding of the items discussed and is okay with this plan. Disposition/Recommendation: self-care . appropriate at this time, patient encouraged to call back with questions Information/Education: patient/caller able to teach back Caller agreeable to plan of care: yes The following references were used: nursing clinical judgement documented in this encounter Plan of Treatment Not on file documented as of this encounter Visit Diagnoses Not on filedocumented in this encounter Care Teams Websphere Architect Relationship Specialty Start Date End Date Jana Hawkins MPAS, P.A.-C. [address] [place] [address] [place] MAT[place] [phone] PCP - General Internal Medicine 10/22/22 documented as of this encounter
--- OUTSIDE RECORDS SUMMARY | 2024-05-15 02:34 | XMS_ITS | Clinical Summary ---
Author Organization [facility] Address [address] [place] [address] Care Team Providers Care Pet Adoption Counselor Name Role Phone Jana Hawkins P.A.-C. Primary Care Pro vider Source Comments Patient records contain information from all sites at [facility]. For routine questions regarding patient records, call [phone] during business hours, M-F 8:00 AM - 5:00 PM Central Time. Record requests for emergency care only can be directed to [phone] at any time.[facility] Allergies Active Allergy Reactions Criticality Noted Date Comments Perfume Swelling High 10/10/2012 [place] Sulfa (Sulfonamide Antibiotics) Headache,Photosensiti vity Medium 08/26/2006 Suture (Absorbable) Other (see comments) 2023 Polyglycolic acid dissolvable sutures. Causes abnormal skin healing. Wine Spirit Hives (Reselect Reaction) High 05/08/2015 Medications * This document contains information received from the source organization and may not represent a complete record from that organization. docosahexanoic acid/epa (FISH OIL ORAL) Take 2 capsules by mouth daily. 10/11/19 13 Active MULTIVITAMIN ORAL Take 1 tablet by mouth daily. 10/11/19 13 Active omeprazole (PriLOSEC) 20 mg capsule Take [...] Chew 1 tablet 2 (two) times a day. Active magnesium 250 mg tablet Take 250 mg by mouth daily. 08/30/19 Active estradioL (Estrace) 0.1 mg/g (0.01%) vaginal cream Insert 1 g into the vagina 3 (three) times a week. Use at bedtime. Lubricate pessary with if for insertion. 42.5 g 11 12/27/19 Active ondansetron ODT (Zofran-ODT) 4 mg disintegrating tablet Dissolve 4 mg in the mouth. 11/29/19 Active acetaminophen (TylenoL) 500 mg tablet Take 2 tablets (1,000 mg total) by mouth every 6 (six) hours as needed for pain. 03/09/20 Active ibuprofen 200 mg tablet Take 3 tablets (600 mg total) by mouth every 6 (six) hours as needed for pain. 03/09/20 Active sennosides-docusat e sodium (Senokot-S) 8.6-50 mg per tablet Take 1 tablet by mouth at bedtime as needed for constipation. 03/09/20 Active phenazopyridine (Pyridium) 200 mg tablet Take 1 tablet (200 mg total) by mouth 3 (three) times a day as needed for painful urination. 10 tablet 03/15/20 Active trimethoprim (Trimpex) 100 mg tablet Take 1 tablet (100 mg total) by mouth daily. 30 tablet 2 04/10/20 24 025 Active oxyCODONE (Roxicodone) 5 mg immediate release tabletIndications: Acute Pain Take 1 tablet (5 mg total) by mouth every 4 (four) hours as needed for pain (not controlled with ibuprofen and tylenol) Indication: Acute Pain. 10 tablet 4 1:41 PM CDT 03/09/20 024 Discontin ued(Thera py completed ) Active Problems Problem Noted Date Diagnosed Date Cystocele Rectocele With Uterine Prolapse 2023 Hyponatremia 02/21/2024 Malignant Neoplasm Of Unspec ified Site Of Laterality Unknown Female Breast 02/21/2024 Osteopenia 02/21/2024 Overview (02/21/2024): by DEXA here -2.2 08/22, stable/improved 11/24, improved by DEXA 11/26 (followed by oncology) Other Specified Anxiety Disorders 02/21/2024 Overview (02/21/2024): related to breast cancer diagnosis 08/22, started on sertraline then Polyp Colon Adenomatous 02/21/2024 Overview (02/21/2024): outside with Dr. Mejia, 08/18, Colonoscopy here clear 11/23 (due again 5Y), 1 tubular adenoma removed by colonoscopy here 11/28, repeat due in 5Y Postmenopausal Atrophic Vaginitis 02/21/2024 Presence Of External Hearing Aid 02/21/2024 Overview (02/21/2024): Has had hearing impairment since childhood, unknown cause Prolapse Genital Female 02/21/2024 Prolapse Uterovaginal Complete 02/21/2024 Overview (02/21/2024): Grade 4 cystocele, grade 2-3 uterine prolapse, grade 2-3 rectocele Stress Incontinence Female Male 02/21/2024 Hernia Hiatal 02/21/2024 Cancer Breast Personal History 10/14/2017 Cancer Staging:Pathologic stage from 09/23/2017:Stage IA(pT1c, pN0, cM0, G2, ER+, AK+, HER2-, Oncotype DX score: 15) - Signed by Sunil Torres M.D. on 11/02/2017 Clinical: Unsigned Overweight Body Mass Index 25-29.9 Adult 016 Gastroesophageal Reflux Disease Without Esophagi tis 07/06/2015 Overview (11/15/2017): Overview: Schatzke ring - 06/22 Cystocele 07/06/2015 Overview (11/15/2017): Overview: Pessary from [facility] with support Rectocele 10/10/2012 Polyp Colon 10/01/2009 Overview (11/15/2017): Overview: Colonoscopy 09/2009 polyps repeat in 5 years Colonoscopy 10/2013 hyperplastic polyp repeat in 5 years Resolved Problems Problem Noted Date Diagnosed Date Resolved Date Elevated Blood Pressure 08/22/201502/05 Encounters Date Type Department Care Team Description 05/02/2024 8:45 AM ANALYTICS ANALYST Office Visit Department of Obstetrics and Gynecology, Division of Urogynecology in [place], [place] [address] [place] [address] Davy Sim M.D., M.S. Follow Up Examination Status Post Surgery (Primary Dx) 04/11/2024 Orders Only [facility] Jana Hawkins MPAS, P.A.-C. 03/29/2024 Orders Only Department of Obstetrics and Gynecology, Division of Gynecologic Oncology in [place], [place] [address] [place] [address] Megan Soares M.D. 03/29/2024 Clinical Communication Department of Obstetrics and Gynecology, Division of Urogynecology in [place], [place] [address] [place] [address] Davy Sim M.D., M.S. Communication 03/28/2024 2:49 PM CDT - 03/28/2024 11:59 PM CDT Hospital Encounter Department of Laboratory Medicine in [address] [phone] Davy Sim M.D., M.S. Urinary Tract Infection Site Not Specified Discharge Disposition: Home or Self Care 03/28/2024 Clinical Communication Department of Obstetrics and Gynecology, Division of Urogynecology in [place], [place] [address] [place] [phone] Davy Sim M.D., M.S. Communication 03/24/2024 Clinical Communication Department of Obstetrics and Gynecology, Division of Urogynecology in [place], [place] [address] [place] [address] Omar Meraz R.N. 03/22/2024 Clinical Communication Department of Obstetrics and Gynecology, Division of Urogynecology in [place], [place] [address] [place] [address] Davy Sim M.D., M.S. 03/20/2024 Clinical Communication Department of Obstetrics and Gynecology, Division of Urogynecology in [place], [place] [address] [place] [address] Davy Sim M.D., M.S. Communication 03/17/2024 Clinical Communication Department of Obstetrics and Gynecology, Division of Urogynecology in [place], [place] [address] [place] [phone] Lexie Rosas M.B.B.S. Results 03/17/2024 Orders Only Department of Obstetrics and Gynecology, Division of Urogynecology in [place], [place] [address] [place] [address] Lexie Rosas M.B.B.S. 03/15/2024 10:36 AM CDT - 03/15/2024 11:59 PM CDT Hospital Encounter Department of Laboratory Medicine in [address] [phone] Davy Sim M.D., M.S. Symptom Urinary Discharge Disposition: Home or Self Care 03/14/2024 Clinical Communication Department of Obstetrics and Gynecology, Division of Urogynecology in [place], [place] [address] [place] [address] Omar Meraz R.N. Communication 03/13/2024 Clinical Communication Department of Community Internal Medicine in [address] [phone] Lacy Brooke R.N. Post Hospital Follow-up 03/13/2024 Clinical Communication Department of Obstetrics and Gynecology, Division of Urogynecology in [place], [place] [address] [place] [address] Omar Meraz R.N. Post-op call 03/13/2024 Clinical Communication Department of Obstetrics and Gynecology in [place], [place] [address] [place] [address] Crystal Whitman R.N., CRRN Post-op Follow-up 03/09/2024 7:46 AM CDT Anesthesia Event T [facility] OR [address] [place] [phone] Brian Garcia M.D. 03/09/2024 7:25 AM CDT - 03/09/2024 11:32 AM CDT Surgery T [facility] OR [address] [place] [phone] Davy Sim M.D., M.S. HYSTERECTOMY TOTAL VAGINAL. 03/09/2024 5:45 AM CDT - 03/11/2024 5:18 PM CDT Hospital Encounter [facility], [facility], Fifth Floor [address] [place] [address] Davy Sim M.D., M.S. Retention Urinary (Primary Dx); Cystocele Rectocele With Uterine Prolapse Discharge Disposition: Home or Self Care 02/21/2024 10:40 AM CDT Comprehensive Visit Department of Community Internal Medicine in [address] [phone] Jana Hawkins MPAS, P.A.-C. Preoperative Exam 02/14/2024 Clinical Communication Department of Obstetrics and Gynecology, Division of Urogynecology in [place], [place] [address] [place] [address] Davy Sim M.D., M.S. Communication from Last 3 Months Immunizations Name Administration Dates Next Due HZV (ZOSTAVAX) 01/19/2013 HepA Adult 12/06/2003,06/04/2003 Influenza TIV (IM) 03/27/1999 Influenza high dose QV(65 years or older) (PF) 0 03/04/2023,03/11/2021 Influenza, Quadrivalent, Adjuvanted, Preservativ e Free 03/30/2022 PCV13 08/26/2017 PPSV23 08/29/2018,05/17/2003 RSV: respiratory syncytial v irus (AREXVY) recombinant vaccine 05/21/2023 RZV (SHINGRIX) 03/11/2019 SARS-COV-2 (COVID-19) - MODE RNA (12 YEARS AND OLDER) Fall Seasonal 03/20/2023 SARS-COV-2 (COVID-19),NON-US,Unspecified(HISTORI VALERIA) 03/20/2023 Tdap 08/18/2017,04/26/2008 influenza vaccine quad (FLUZ ONE/FLUARIX) (6 months and older)(PF) 03/30/2022 Family History Medical History Relation Name Comments Skin cancer Father Chaitanya Olivera Dementia Mother Raeann Olivera Skin cancer Mother Raeann Olivera Melanoma Sister Roxy White Relation Name Status Comments Father Chaitanya Olivera Mother Raeann Olivera Sister Roxy White Social History Tobacco Use Types Packs/Day Years Used Date Smoking Tobacco: Former Cigarettes 1 94 0 12/06/1972 - 12/25/2019 Passive Smoke Exposure: Never Smokeless Tobacco: Never Tobacco Cessation:Counseling Given: Not Answered Alcohol Use Standard Drinks/Week Comments Not Currently 0 (1 standard drink = 0.6 oz pur e alcohol) [facility] [employer] Answer Date Recorded In the past 12 months has [facility] [employer], gas, oil, or water [id number] threatened to shut off services in your [...] your living situation today? I have a [facility] place to live 03/09/2024 Comments No Sex and Gender Information Value Date Recorded Sex Assigned at Female 10/06/2023 6:16 PM CDT Legal Sex Female 9:58 PM ANALYTICS ANALYST Gender Identity Female 10/14/2017 8:36 AM CDT Sexual Orientation Straight 10/14/2017 8: 36 AM CDT Last Filed Vital Signs Vital Sign Reading Time Taken Comments Blood Pressure 108/68 03/11/2024 4:35 PM CDT Pulse 87 03/11/2024 4:35 PM CDT Temperature 36.7 C (98.1 F) 03/11/2024 4:35 PM CDT Respiratory Rate 18 03/11/2024 4:35 PM CDT Oxygen Saturation 97% 03/11/2024 4:35 PM CDT Inhaled Oxygen Concentration - - Weight 70.1 kg (154 lb 8.7 oz) 03/09/2024 7:00 A M CDT Height 163 cm (5' 4.17) 03/09/2024 7:00 AM CDT Body Mass Index 26.38 03/09/2024 7:00 AM CDT Plan of Treatment Health Maintenance Due Date Last Done Comments CT Colonography 1950 Colonoscopy 1950 Hepatitis C Screening 1950 Lung Cancer Screening 1950 Visit: Medicare Annual Wellness 1950 Zoster Vaccines (2 of 2) 05/06/2019 03/11/2019, 01/05 Mammogram 12/12/2024 12/13/2023 (Perf ormed elsewhere) Visit: Annual, age 65+ (or Medicare and <65) 02/20/2025 02/21/2024 Cologuard 11/22/2026 11/23/2023 (Perf ormed elsewhere) Colorectal Cancer Surveillance 11/22/2026 Fasting Glucose for Diabetes Screening 03/10/2027 03/10/2024, 12/27/2023, 10/22/2022, Additional history exists DTaP,Tdap,and Td Vaccines (3 - Td or Tdap) 08/19/2027 08/18/2017, 04/26/2008 Hepatitis A Vaccines Completed 12/06/2003, 06/04/20 03 Pneumococcal vaccine (65+ years) Completed 08/29/2018, 08/26/2017, 05/17/2003 Bone Density Scan (Osteoporosis Screen) Addressed 11/24/2019 (Performed elsewhere) Overridden with the intention of not completing the topic RSV vaccine - (32-36 weeks) or 60+ years Completed 05/21/2023 Depression Screening (Annual PHQ-2) Completed 02/21/2024, 02/14/2024 COVID-19 Vaccine Completed 02/24/2024, , 03/20/2023, Additional history exists Fall Risk Screen (Annual) Completed 03/09/2024 HPV Vaccines Aged Out No longer eligi ble based on patient's age to complete this topic IPV Vaccines Aged Out No longer eligi ble based on patient's age to complete this topic Procedures Procedure Name Priority Date/Time Associated Diagnosis Comments URINALYSIS WITH MICROSCOPIC Routine 03/28/2024 2:53 PM CDT Urinary Tract Infection Site Not Specified BACTERIAL CULTURE, AEROBIC + SUSC, URINE Routine 03/28/2024 2:53 PM CDT Urinary Tract Infection Site Not Specified BACTERIAL CULTURE, AEROBIC + SUSC, URINE Routine 03/15/2024 10:42 AM CDT Symptom Urinary CBC WITHOUT DIFFERENTIAL, B STAT 03/10/2024 2:13 PM CDT BASIC METABOLIC PANEL, S/P Routine 03/10/2024 12:31 AM CDT CBC WITHOUT DIFFERENTIAL, B Routine 03/10/2024 12:31 AM CDT ADULT OXYGEN THERAPY Routine 03/09/2024 11:36 AM CDT DX ABDOMEN 1 VIEW RAD - Routine (most inpatients and all outpatients) 03/09/2024 11:33 AM CDT SURGICAL PATHOLOGY, [facility] Routine 03/09/2024 8:43 AM CDT Cystocele Rectocele With Uterine Prolapse LDA ANE ENDOTRACHEAL AIRWAY Routine 03/09/2024 8:01 AM CDT CYSTOSCOPY RIGID 03/09/2024 7:26 AM CDT Cystocele Rectocele With Uterine Prolapse REPAIR POSTERIOR VAGINA 03/09/2024 7:26 AM CDT Cystocele Rectocele With Uterine Prolapse REPAIR ANTERIOR - VAGINAL 03/09/2024 7:26 AM CDT Cystocele Rectocele With Uterine Prolapse COLPOPEXY VAGINAL 03/09/2024 7:2 6 AM CDT Cystocele Rectocele With Uterine Prolapse REPAIR ENTEROCELE 03/09/2024 7:2 6 AM CDT Cystocele Rectocele With Uterine Prolapse SALPINGO - OOPHORECTOMY 03/09/2024 7:26 AM CDT Cystocele Rectocele With Uterine Prolapse HYSTERECTOMY TOTAL VAGINAL 03/09/2024 7:26 AM CDT Cystocele Rectocele With Uterine Prolapse ECG Routine 03/09/2024 7:20 AM CDT from Last 3 Months Results * (ABNORMAL) Bacterial Culture, Aerobic + Susceptibility, Urine (03/28/2024 2:53 PM CDT) Only the most recent of2 resultswithin the time period is included. Urine Culture ESCHERICHIA COLI >100,000 cfu/mL (A) 03/30/2024 8:54 AM CDT MKTO Urine (Urine, Midstream) 03/28/2024 2:53 PM CDT 03/28/2024 7:03 PM CDT Comment:Specimen Source Site : Urine Narrative Organism Antibiotic Method Susceptibility Escherichia coli Ampicillin SUSCEPTIBILITY, KUSUM (MCG/ML) 4 mcg/mL: Susceptible Escherichia coli Ampicillin + Sulbactam SUSCEPTI BILITY, KUSUM (MCG/ML) <=2 mcg/mL: Susceptible Escherichia coli Piperacillin + Tazobactam SUSCE PTIBILITY, KUSUM (MCG/ML) <=4 mcg/mL: Susceptible Escherichia coli Cefazolin SUSCEPTIBILITY, KUSUM (MCG/ML) <=4 mcg/mL: Susceptible Comment: The interpretation applies to uncomplicated urinary tract infections only. It also applies to these oral cephalosporins: cefuroxime, cephalexin, and cefprozil. Escherichia coli Ceftazidime SUSCEPTIBILITY, KUSUM (MCG/ML) <=1 mcg/mL: Susceptible Escherichia coli Ceftriaxone SUSCEPTIBILITY, KUSUM (MCG/ML) <=1 mcg/mL: Susceptible Escherichia coli Cefepime SUSCEPTIBILITY, KUSUM (MCG/ML) <=1 mcg/mL: Susceptible Escherichia coli Aztreonam SUSCEPTIBILITY, KUSUM (MCG/ML) <=1 mcg/mL: Susceptible Escherichia coli Ertapenem SUSCEPTIBILITY, KUSUM (MCG/ML) <=0.5 mcg/mL: Susceptible Escherichia coli Meropenem SUSCEPTIBILITY, KUSUM (MCG/ML) <=0.25 mcg/mL: Susceptible Escherichia coli Gentamicin SUSCEPTIBILITY, KUSUM (MCG/ML) <=1 mcg/mL: Susceptible Escherichia coli Tobramycin SUSCEPTIBILITY, KUSUM (MCG/ML) <=1 mcg/mL: Susceptible Escherichia coli Levofloxacin SUSCEPTIBILITY, KUSUM (MCG/ML) <=0.12 mcg/mL: Susceptible Escherichia coli Nitrofurantoin SUSCEPTIBILITY, KUSUM (MCG/ML) <=16 mcg/mL: Susceptible Escherichia coli Trimethoprim + Sulfamethoxazole SUSCEPTIBILITY, KUSUM (MCG/ML) <=20 mcg/mL: Susceptible Davy Sim M.D., M.S. LAB MICROBIOLOGY - GEN ERAL ORDERABLES Final Result [facility] [address] [place] [address], [place] TO [facility] in [place] [address] [place] [address] * (ABNORMAL) Urinalysis, with Microscopic: Urine, Midstream (03/28/2024 2:53 PM CDT) Source Urine, Urine, Midstream 03/28/2024 3:04 PM CDT FB60 Clarity Slightly Cloudy(A) Clear 03/28/2024 3:07 PM CDT FB60 Color Yellow 03/28/2024 3:07 PM CDT FB60 Comment: ----REFERENCE VALUE---- Colorless Yellow Bia Blood Moderate(A) Negative 03/28/2024 3:07 PM CDT FB60 Nitrite Positive(A) Negative 03/28/2024 3:07 PM CDT FB60 Leukocyte Esterase Large(A) Negative 03/28/2024 3:07 PM CDT FB60 Protein 30(A) mg/dL 03/28/2024 3:07 PM CDT FB60 Comment: ----REFERENCE VALUE---- Negative Trace Glucose Negative Negative mg/dL 03/28/2024 3:07 PM CDT FB60 Ketones, QI(U) Negative Negative mg/dL 03/28/2024 3:07 PM CDT FB60 Bilirubin Negative Negative 03/28/2024 3:07 PM CDT FB60 pH 5.5 5.0 - 8.0 03/28/2024 3:07 PM CDT FB60 Specific [place] 1.020 1.001 - 1.035 03/28/2024 3:07 PM CDT FB60 Urobilinogen 0.2 0.2 - 1.0 mg/dL 03/28/2024 3:07 PM CDT FB60 White Blood Cells >100(A) /hpf 03/28/2024 3:13 PM CDT FB60 Comment: ----REFERENCE VALUE---- Males: 0-3 Females: 0-10 Unknown: 0-10 Red Blood Cells 3-10(A) 0 - 2 /hpf 3:13 PM CDT FB60 Dysmorphic Red Blood Cells <=25 <=25 % 03/28/2024 3:13 PM CDT FB60 Bacteria Present(A) None Seen 03/28/2024 3:13 PM CDT FB60 Urine (Urine, Midstream) 03/28/2024 2:53 PM CDT 03/28/2024 3:03 PM CDT Davy Sim M.D., M.S. LAB URINE ORDERABLES F inal Result [facility] [address] [place] [address], [facility] FB60 [facility] in [address] [place] [address] * (ABNORMAL) CBC without Differential (03/10/2024 2:13 PM CDT) Only the most recent of2 resultswithin the time period is included. Hemoglobin 12.4 11.6 - 15.0 g/dL 03/10/2024 2:20 PM CDT METH Hematocrit 35.4(L) 35.5 - 44.9 % 03/10/2024 2:20 PM CDT METH Erythrocytes 3.97 3.92 - 5.13 x10(12)/L 03/10/2024 2:20 PM CDT METH MCV 89.2 78.2 - 97.9 fL 03/10/2024 2:20 PM CDT METH RBC Distrib Width 12.4 12.2 - 16.1 % 03/10/2024 2:20 PM CDT METH Platelet Count 338 157 - 371 x10(9)/L 03/10/2024 2:20 PM CDT METH Leukocytes 10.2(H) 3.4 - 9.6 x10(9)/L 03/10/2024 2:20 PM CDT METH Blood (Blood, Venous) 03/10/2024 2:13 PM CDT 03/10/2024 2:18 PM CDT us Chante Lawson M.D. LAB BLOOD ADD-ON Lima l Result [facility] [address] [place] [address], [place] METH [facility] [address] [place] [address] * (ABNORMAL) Basic Metabolic Panel (03/10/2024 12:31 AM CDT) Pathologist [facility] Potassium, S 4.8 3.6 - 5.2 mmol/L 03/10/2024 1:15 AM CDT DTL Sodium, S 130(L) 135 - 145 mmol/L 03/10/2024 1:15 AM CDT DTL Chloride, S 97(L) 98 - 107 mmol/L 03/10/2024 1:15 AM CDT DTL Bicarbonate, S 24 22 - 29 mmol/L 03/10/2024 1:15 AM CDT DTL Anion Gap 9 7 - 15 03/10/2024 1:15 AM CDT DTL BUN (Blood Urea Nitrogen), S 6 6 - 21 mg/dL 03/10/2024 1:15 AM CDT DTL Creatinine 0.64 0.59 - 1.04 mg/dL 03/10/2024 1:15 AM CDT DTL Estimated GFR (eGFR) >90 >=60 mL/min/BSA 03/10/2024 1:15 AM CDT DTL Comment: Estimated GFR calculated using the 2020 CKD_EPI creatinine equation. Calcium, Total, S 8.7(L) 8.8 - 10.2 mg/dL 03/10/2024 1:15 AM CDT DTL Glucose, S 140 70 - 140 mg/dL 03/10/2024 1:15 AM CDT DTL Blood (Blood, Venous) 03/10/2024 12:31 AM CDT 03/10/2024 12:58 AM CDT us Vin Ku M.D. LAB BLOOD ADD-ON Final Res ult [facility] [address] [place] [address], [place] DTL [facility] [address] [place] [address] * DX Abdomen 1 View (03/09/2024 11:33 AM CDT) Anatomical Region Laterality Modality Abdomen, Abdominal RST LOS, Abdominal ARZ LOS, Abdominal FLA LOS N/A Digital Radiography Impressions 03/09/2024 11:43 AM CDT Negative for postoperative purposes. Narrative 03/09/2024 11:43 AM CDT EXAM: DX ABDOMEN 1 VIEW Procedure Note Davy Keen M.D. - 03/09/2024 EXAM: DX ABDOMEN 1 VIEW IMPRESSION: Negative for postoperative purposes. Davy Sim M.D., M.S. IMG DIAGNOSTIC IMAGING PROCEDURES Final Result * Surgical Pathology, [facility] (03/09/2024 8:43 AM CDT) 03/11/2024 7:00 AM CDT METH Report electronically signed by Nahun Gonzales M.D., Ph.D. I verify that I have examined all relevant slides/material s for the specimen(s) and rendered or confirmed the diagnosis. 03/11/2024 7:00 AM CDT METH Gross Description A. Received fresh labeled uterus and cervix is a 150 g uterus with cervix, without attached bilateral fallopian tubes and ovaries. The uterine serosa is smooth. The endometrium has a diffusely flat and multi-cystic surface. The myometrial thickness is 2.5 cm. There are 10 intramural and subserosal leiomyomas ranging from 0.6 cm to 3 cm. Construction Field Engineer tissue submitted for permanent sections. Grossed by Anais Regan M.S., PA([facility] B. Received fresh labeled left fallopian tube and ovary is a 5.9 x 0.6 cm fallopian tube with an attached 2.1 x 0.9 x 0.4 cm ovary. There are multiple paratubal and adnexal cysts, ranging from 0.2 cm to 0.8 cm in greatest dimension. The fallopian tube is otherwise unremarkable. The ovary has a solid cut surface. Construction Field Engineer tissue submitted for permanent sections. Grossed by Margoth Zarco M.D.-Pathology Resident and Anais Regan M.S., PA([facility]). C. Received fresh labeled right fallopian tube and ovary is a 0.6 g, 1.8 x 1.1 x 0.6 cm ovary with 6.4 x 0.8 cm fallopian tube. The ovary has a smooth outer surface and solid cut surface. The fallopian tube has multiple paratubal cysts ranging from 0.1 cm to 0.6 cm. Construction Field Engineer tissue submitted for permanent sections. Grossed by Umair Kent, DEANDRA([facility]). 03/11/2024 7:00 AM CDT METH Block Summary A Uterus and cervix A1 Anterior cervix A2 Posterior cervix A3 Anterior lower uterine segment A4 Posterior lower uterine segment A5 Anterior endometrium A6 Posterior endometrium A7 Polyp A8 Fibroid 1 A9 Fibroid 2 B Left fallopian tube and ovary B1 Fimbriae B2 Fallopian tube B3 Ovary B4 Adnexal cyst C Right fallopian tube and ovary C1 Ovary C2 Fimbria C3 Fallopian tube cross sections 03/11/2024 7:00 AM CDT METH Interpretation FINAL DIAGNOSIS A. Uterus, hysterectomy: Unremarkable cervix. Inactive endometrium with endometrial polyp. Myometrium with adenomyosis and leiomyomata. B. Ovary and fallopian tube, left, salpingo-oophor ectomy: Unremarkable ovary. Fallopian tube with paratubal cysts. C. Ovary and fallopian tube, right, salpingo-oophor ectomy: Unremarkable ovary. Fallopian tube with paratubal cysts. A portion of the testing process was performed at [facility] site [id number]. Digital imaging was used in the diagnostic assessment of this case. 03/11/2024 7:00 AM CDT METH Tissue (Uterus) 03/09/2024 8 :43 AM CDT Tissue (Fallopian Tube, Left) 03/09/2024 8:54 AM CDT Tissue (Fallopian Tube, Right) 03/09/2024 9:02 AM CDT Davy Sim M.D., M.S. LAB SURG PATH ORDERABL ES Final Result [facility] [address] [place] [address], [facility] [address] [place] [address] * LDA ANE ENDOTRACHEAL AIRWAY (03/09/2024 8:01 AM CDT) Narrative Pedro Luis Felix APRN, CRNA, DNAP - 03/09/2024 8:01 AM CDT Pedro Luis Felix APRN, CRNA, DNAP 03/09/2024 8:07 AM Airway Date/Time: 03/09/2024 8:01 AM Performed by: Pedro Luis Felix APRN, CRNA, DNAP Authorized by: Brian Garcia M.D. Patient location during procedure: OR / Procedure Area PROCEDURE DETAILS: Mask difficulty assessment: easy mask Final airway type: video laryngoscope Laryngeal Manipulation: no Final best view of glottic structures - Cormack/Lehane Score: grade 1 ETT location: oral VL device: glide scope Inman scope blade size: 3 Tube size: 7 ETT distance at teeth/gum: 21 Oral tube type: standard ETT Cuffed: yes Number of attempt to successful placement: 1 Airway confirmation: bilateral breath sounds, positive ETCO2 and bilateral chest rise Other previous techniques attempted: none PRE PROCEDURE DETAILS: Pre evaluation for airway management: procedure Urgency: elective Preop assessment of probable difficulty: no difficulty anticipated Preoxygenation: bag valve mask SEDATION / ANESTHESIA Anesthesia method: anesthesia POST PROCEDURE DETAILS: Procedure outcome: successful Notable Events: no complications us Brian Garcia M.D. ANESTHESIA ORDERABLES Fin al Result * ECG 12 Lead (03/09/2024 7:20 AM CDT) Ventricular Rate ECG/Min 66 BPM MUSE AK Interval 160 ms MUSE QRSD Interval 80 ms MUSE QT Interval 420 ms MUSE QTC Interval 440 ms MUSE P [place] 72 degrees MUSE R [place] 26 degrees MUSE T Wave [place] 63 degrees MUSE 03/09/2024 7:20 AM CDT 03/09/2024 7:23 AM CDT Impressions MUSE - 03/09/2024 7:23 AM CDT Normal sinus rhythm Normal ECG No previous ECGs available Reviewed by ALTHEA Briscoe Narrative Procedure Note Garret Jane M.D. - 03/09/2024 IMPRESSION: Normal sinus rhythm Normal ECG No previous ECGs available Reviewed by ALTHEA Briscoe us Brian Garcia M.D. ECG ORDERABLES Final Res ult MUSE NA from Last [address] [facility] MEDICARE Advance Directives For more information, please contact: [phone] * Full Code (Latest Code Status on File) Date Activated Date Inactivated Comments 03/09/2024 1:52 PM 03/11/2024 7:24 PM Question Answer Comments Full Code: Discussed Care Teams Pet Adoption Counselor Relationship Specialty Start Date End Date Jana Hawkins MPAS, P.A.-C. [address] [facility] [place] [phone] PCP - General Internal Medicine 10/22/22
--- OUTSIDE RECORDS SUMMARY | 2024-05-15 02:34 | XMS_ITS ---
Author Organization [facility] Address [address] [place] [address] Care Team Providers Care Cable Repairer Name Role Phone Jana Hawkins P.A.-C. Primary Care Pro vider Active Problems * This document contains information received from the source organization and may not represent a complete record from that organization. Problem Noted Date Diagnosed Date Cystocele Rectocele [...] from 09/23/2017:Stage IA(pT1c, pN0, cM0, G2, ER+, [place]+, HER2-, Oncotype DX score: 15) - Signed by Sunil Torres M.D. on 11/02/2017 Clinical: Unsigned Overweight Body Mass Index 25-29.9 Adult 016 Gastroesophageal Reflux Disease Without Esophagi tis 07/06/2015 Overview (11/15/2017): Overview: Schatzke ring - 06/22 Cystocele 07/06/2015 Overview (11/15/2017): Overview: Pessary from [place] [facility] with support Rectocele 10/10/2012 Polyp Colon 10/01/2009 Overview (11/15/2017): Overview: Colonoscopy 09/2009 polyps repeat in 5 years Colonoscopy 10/2013 hyperplastic polyp repeat in 5 years Current Oncology Plans No current plan information found. Past Plans No past plan information found. Radiation Treatments * Plan Last Treated On Elapsed Days Fractions Treated Prescribed Fraction Dose Prescribed Total Dose [id number] T 11/30/2017 20 15 of 15 267 cGy 4,005 cGy Reference Point Last Treated On Elapsed Days Session Dose Total Dose [id number] 11/30/2017 20 267 cGy 4,005 cGy Resolved Problems Problem Noted Date Diagnosed Date Resolved Date Elevated Blood Pressure 08/22/201502/05
--- OUTSIDE RECORDS SUMMARY | 2024-05-15 02:34 | XMS_ITS | Encounter Summary ---
Author Organization [facility] Address [address] [place] [address] Care Team Providers Care Balcony Worker Name Role Phone Jana Hawkins P.A.-C. Primary Care Pro vider Encounter Details Date Type Department Care Team (Latest Contact Info) Description 03/28/2024 2:49 PM CDT - 03/28/2024 11:59 PM CDT Hospital Encounter Department of Laboratory Medicine in [place] [address] [place] [phone] Davy Sim M.D., M.S. [address] [place] [phone] Urinary Tract Infection Site Not Specified Discharge Disposition: Home or Self Care Social History Tobacco Use Types Packs/Day Years [...] your living situation today? I have a [facility] place to live 03/09/2024 Comments No Sex and Gender Information Value Date Recorded Sex Assigned at Female 10/06/2023 6:16 PM CDT Legal Sex Female 9:58 PM ACCORDION REPAIRER Gender Identity Female 10/14/2017 8:36 AM CDT Sexual Orientation Straight 10/14/2017 8: 36 AM CDT documented as of this encounter Medications at Time of Discharge acetaminophen (TylenoL) 500 mg tablet Take 2 tablets (1,000 mg total) by mouth every 6 (six) hours as needed for pain. 03/09/2024 calcium carbonate-vitamin D3 (Calcium 600 with Vitamin D3) 600 mg-10 mcg (400 unit) tablet,chewable Chew 1 tablet 2 (two) times a day. docosahexanoic acid/epa (FISH OIL ORAL) Take 2 capsules by mouth daily. 10/10/2012 estradioL (Estrace) 0.1 mg/g (0.01%) vaginal cream Insert 1 g into the vagina 3 (three) times a week. Use at bedtime. Lubricate pessary with if for insertion. 42.5 g 11 12/27/2023 ibuprofen 200 mg tablet Take 3 tablets (600 mg total) by mouth every 6 (six) hours as needed for pain. 03/09/2024 Lactobacillus rhamnosus GG-inulin (CULTURELLE) 10 billion cell -200 mg per sprinkle capsule Take 1 capsule by mouth daily. Open capsule and mix until dissolved in a cool beverage or sprinkle onto applesauce. Mix until dissolved. magnesium 250 mg tablet Take 250 mg by mouth daily. 08/30/2023 MULTIVITAMIN ORAL Take 1 tablet by mouth daily. 10/10/2012 omeprazole (PriLOSEC) 20 mg capsule Take 20 mg by mouth 2 (two) times a day. ondansetron ODT (Zofran-ODT) 4 mg disintegrating tablet Dissolve 4 mg in the mouth. 11/29/2023 phenazopyridine (Pyridium) 200 mg tablet Take 1 tablet (200 mg total) by mouth 3 (three) times a day as needed for painful urination. 10 tablet 03/15/2024 sennosides-docusate sodium (Senokot-S) 8.6-50 mg per tablet Take 1 tablet by mouth at bedtime as needed for constipation. 03/09/2024 oxyCODONE (Roxicodone) 5 mg immediate release tabletIndications:A cute Pain Take 1 tablet (5 mg total) by mouth every 4 (four) hours as needed for pain (not controlled with ibuprofen and tylenol) Indication: Acute Pain. 10 tablet 03/11/2024 1:41 PM CDT 03/09/2024 documented as of this encounter Plan of Treatment Not on file documented as of this encounter Procedures Procedure Name Priority Date/Time Associated Diagnosis Comments BACTERIAL CULTURE, AEROBIC + SUSC, URINE Routine 03/28/2024 2:53 PM CDT Urinary Tract Infection Site Not Specified URINALYSIS WITH MICROSCOPIC Routine 03/28/2024 2:53 PM CDT Urinary Tract Infection Site Not Specified documented in this encounter Results * (ABNORMAL) Bacterial Culture, Aerobic + Susceptibility, Urine (03/28/2024 2:53 PM CDT) Urine Culture ESCHERICHIA COLI >100,000 cfu/mL (A) [...] MICROBIOLOGY - GEN ERAL ORDERABLES Final Result [facility] [address] [place] [address], [facility] [place] [address] [place] [address] * (ABNORMAL) Urinalysis, with Microscopic: Urine, Midstream [...] 8.0 03/28/2024 3:07 PM CDT FB60 Specific [place] 1.020 1.001 - 1.035 03/28/2024 3:07 PM [...] M.S. LAB URINE ORDERABLES F inal Result [facility] [address] [place] [address], [facility] FB60 [facility] [place] [address] [place] [address] documented in this encounter Visit Diagnoses Diagnosis Urinary Tract Infection Site Not Specified documented in this encounter Care Teams Balcony Worker Relationship Specialty Start Date End Date Jana Hawkins MPAS, P.A.-C. [address] [place] [phone] PCP - General Internal Medicine 10/22/22 documented as of this encounter
--- OUTSIDE RECORDS SUMMARY | 2024-05-15 02:34 | XMS_ITS | Encounter Summary ---
Author Organization [facility] Address [address] [place] [address] Care Team Providers Care Environmental Field Office Manager Name Role Phone Jana Hawkins P.A.-C. Primary Care Pro vider Reason for Visit * Reason Onset Date Comments Communication 03/29/2024 Encounter Details Date Type Department Care Team (Latest Contact Info) Description 03/29/2024 Clinical Communication Department of Obstetrics and Gynecology, Division of Urogynecology in [place], [place] [address] [place] [phone] Davy Sim M.D., M.S. [address] [place] [phone] Communication Social History Tobacco Use Types Packs/Day Years Used Date Smoking Tobacco: Former Cigarettes 1 94 0 12/06/1972 - 12/25/2019 Passive Smoke Exposure: Never Smokeless Tobacco: Never Alcohol Use Standard Drinks/Week Comments Not Currently 0 (1 standard drink = 0.6 oz pur e alcohol) [facility] Utilities Answer Date Recorded In the [...] your living situation today? [facility] 03/09/2024 Comments No Sex and Gender Information Value Date Recorded Sex Assigned at Female 10/06/2023 6:16 PM CDT Legal Sex Female 9:58 PM CARBONIZER TESTER Gender Identity Female 10/14/2017 8:36 AM CDT Sexual Orientation Straight 10/14/2017 8: 36 AM CDT documented as of this encounter Miscellaneous Notes * Telephone Encounter - Omar Meraz R.N. - 03/29/2024 9:07 AM CDT I contacted Camilla back to inform her that Dr. Sim will send a prescription for Cipro to her local pharmacy. She should take this twice per day for 5 days. We reviewed that we will need to ensurethat this is the correct antibiotic once her urine culture is back. Camilla verbalizes understandingof the items discussed and is okay with this plan. Electronically signed by: Omar Meraz R.N. 03/29/24 9:08 AM CDT * Telephone Encounter - Omar Meraz R.N. - 03/29/2024 8:53 AM CDT ASSESSMENT Camilla calls the office with concerns of a urinary tract infection. Camilla is well known to the [facility]. She is status post Vaginal Hysterectomy, Bilateral Salpingo-Oophorectomy, Enterocele Repair/Vaginal Colpopexy, Anterior Repair, Posterior Repair, and Cystoscopy by Dr. Sim on 03/09/2024. Camilla had a positive urinary tract infection on 03/15/2024 and was treated with Macrobid. Nitatates that she had a clean catch urine specimen completed yesterday at [facility]. This culture is pending. Camilla states that she has significant symptoms of dysuria. She denies symptoms of urinary urgency and frequency. She states that her urine is very cloudy. It does not have an odor. Camilla states that she did have to self-catheterize once yesterday. She is taking over the counter AZO. Camilla has minimal post-operative pain. She is eating and drinking without difficulty. She does notfeel well. She states that her bowel is working well. She has minimal vaginal discharge and is abiding by the lifting and activity restrictions without difficulty. Camilla questions if there is anything that she can do to prevent urinary tract infections. PLAN I have reviewed the following with Camilla. I will reach out to Dr. Sim with her symptoms. We did discuss the use of vaginal estrogen cream. I have encouraged Camilla to resume this. We discussed applying a pea sized amount to the urethra, then 1/4 applicator to the vaginal tissue three times perweek at bedtime. This will help to reduce her incidence of urinary tract infections. I will contact Camilla back once I hear back from Dr. Sim. Disposition/Recommendation: notified provider and awaiting recommendations. Information/Education: patient/caller able to teach back. Caller agreeable to plan of care: yes. The following references were used: nursing clinical judgement/Dr. Davy Sim MD. documented in this encounter Plan of Treatment Not on file documented as of this encounter Visit Diagnoses Not on filedocumented in this encounter Care Teams Environmental Field Office Manager Relationship Specialty Start Date End Date Jana Hawkins MPAS, P.A.-C. [address] [place] [phone] PCP - General Internal Medicine 10/22/22 documented as of this encounter
--- OUTSIDE RECORDS SUMMARY | 2024-05-15 02:34 | XMS_ITS | Encounter Summary ---
Author Organization [facility] Address [address] [place] [address] Care Team Providers Care Lithopone Mill Worker Name Role Phone Jana Hawkins P.A.-C. Primary Care Pro vider Reason for Visit * Reason Onset Date Comments Communication 03/28/2024 Encounter Details Date Type Department Care Team (Latest Contact Info) Description 03/28/2024 Clinical Communication Department of Obstetrics and Gynecology, Division of Urogynecology in [place], [place] [address] [place] [address] Davy Sim M.D., M.S. [address] [place] [phone] Communication Social History Tobacco Use Types Packs/Day Years Used Date Smoking Tobacco: Former Cigarettes 1 94 0 12/06/1972 - 12/25/2019 Passive Smoke Exposure: Never Smokeless Tobacco: Never Alcohol Use Standard Drinks/Week Comments Not Currently 0 (1 standard drink = 0.6 oz pur e alcohol) [facility] Utilities Answer Date Recorded In [...] your living situation today? I have a [facility] place to live 03/09/2024 Comments No Sex and Gender Information Value Date Recorded Sex Assigned at Female 10/06/2023 6:16 PM CDT Legal Sex Female 9:58 PM SEO INTERN Gender Identity Female 10/14/2017 8:36 AM CDT Sexual Orientation Straight 10/14/2017 8: 36 AM CDT documented as of this encounter Miscellaneous Notes * Telephone Encounter - Portia Purvis R.N. - 03/28/2024 9:31 AM CDT Camilla is an established patient of Dr. Sim who is calling with vaginal discharge and burning with urination. Reviewed that vaginal discharge following surgery is normal. She may have spotting and/or discharge for 6-8 weeks. This discharge can take on a foul odor which is also ???normal?? . She is bothered with irritation and soreness near the posterior vaginal wall repair. Discussed thatbashir should use an incontinence pad as they are designed to breathe easier and are more gentle with her skin. She noted that the poise pads that she has, work better than the other ones, so she will continue to use Poise incontinence pads for the duration needed. She can apply a barrier cream such as Aquaphor, A&D ointment and/or Vaseline to the perineum toserve as a moisture barrier. She can also fashioned a Kristie bottle and squirt warm water over that area as she is urinating to eliminate the burning. She states her urine does burn at her urethra and is cloudy. Discussed with Dr. Love who ordered a UA/UC to be done in [place]. Camilla will do that this morning. If she has discomfort with urinating, she can purchase [id number]-wqoclyh Azo or Pyridium to soothe the bladder until the culture returns. She was appreciative of the phone call, states she has no further questions or concerns at this time states she has our number on ???speed dial?? . documented in this encounter Plan of Treatment Not on file documented as of this encounter Visit Diagnoses Diagnosis Urinary Tract Infection Site Not Specified- Primary documented in this encounter Care Teams Lithopone Mill Worker Relationship Specialty Start Date End Date Jana Hawkins MPAS, P.A.-C. [address] [place] [phone] PCP - General Internal Medicine 10/22/22 documented as of this encounter
--- OUTSIDE RECORDS SUMMARY | 2024-05-15 02:34 | XMS_ITS ---
Author Organization [facility] Address [address] [place] [address] Care Team Providers Care Mingler Operator Name Role Phone Unavailable Unavailable Unavailable Surgery Details Not on file Complications Check Surgery Details section. Procedure Estimated Blood Loss Check Surgery Details section. Procedure Findings Check Surgery Details section. Procedure Specimens Taken Check Surgery Details section.
--- OUTSIDE RECORDS SUMMARY | 2024-05-15 02:34 | XMS_ITS | Encounter Summary ---
Author Organization [facility] Address [address] [place] [address] Care Team Providers Care Chef'S Assistant Name Role Phone Jana Hawkins P.A.-C. Primary Care Pro vider Reason for Visit * Outpatient (Routine) - Closed Specialty Diagnoses / Procedures Referred By Christina child Referred To Contact Obstetrics and Gynecology Chante Lawson M.D. [address] [place] [phone] Phone: tel: fax: [facility] Referral ID Status Reason Start Date Expiration Date Visits Re quested Visits Authorized [id number] Closed 03/09/2024 09/08/2025 1 1 Encounter Details Date Type Department Care Team (Latest Contact Info) Description 05/02/2024 8:45 AM PROFESSOR OF LAW Office Visit Department of Obstetrics and Gynecology, Division of Urogynecology in [place], [place] [address] [place] [phone] Davy Sim M.D., M.S. [address] [place] [phone] Follow Up Examination Status Post Surgery (Primary Dx) Social History Tobacco Use Types Packs/Day Years Used Date Smoking Tobacco: Former Cigarettes 1 94 0 12/06/1972 - 12/25/2019 Passive Smoke Exposure: Never Smokeless Tobacco: Never Alcohol Use Standard Drinks/Week Comments Not Currently 0 (1 standard drink = 0.6 oz pur e alcohol) [facility] Utilities Answer Date Recorded In [...] Answer Date Recorded Dental: Regular Dentist Yes 07/19/20 24 Employment Answer Date Recorded Employment status Retired 12/24/2023 Housing Stability Answer Date Recorded What is your living situation today? I have a [facility] place to live 03/09/2024 Comments No Sex and Gender Information Value Date Recorded Sex Assigned at Female 10/06/2023 6:16 PM CDT Legal Sex Female 9:58 PM PROFESSOR OF LAW Gender Identity Female 10/14/2017 8:36 AM CDT Sexual Orientation Straight 10/14/2017 8: 36 AM CDT documented as of this encounter Progress Notes * Megan Soares M.D. - 05/02/2024 8:45 AM CST SUBJECTIVE REASON FOR APPOINTMENT Ms. Montalvo presents for routine post-operative follow up. Patient underwent procedure below on 03/09/2024. HYSTERECTOMY TOTAL VAGINAL. SALPINGO-OOPHORECTOMY. (Bilateral) REPAIR ENTEROCELE. COLPOPEXY VAGINAL. REPAIR ANTERIOR, VAGINAL. REPAIR POSTERIOR VAGINA. CYSTOSCOPY RIGID. Her course was complicated by urinary retention requiring self intermittent catheterization for 2 weeks. She also reported recurrent urinary tract infections after her surgery (2 positive urine cultures) and has been on trimethoprim for prophylaxis. Right now, she reports feeling very well. She is voiding spontaneously with no issues. She denies dysuria or hematuria. She has not had any urinary tract infection or symptoms of such since starting the trimethoprim. She is ambulating. She is tolerating p.o. and having regular bowel movements. She is no longer having any pain. She is looking forward to going back to her swimming lessons. She reported hot flashes since her surgery. She says she has had that since she was 42 but they seemed to become more frequent after her surgery. They don't happen every day but when they do they happen to 2-3 times. She is not very bothered by them but wonders see estrogen cream is causing them. OBJECTIVE PHYSICAL EXAM GY[place]URG Exam Amb ASSESSMENT / PLAN ` Routine post operative check. Patient may resume normal activities as previously recommended It is reassuring that she is able to void spontaneously and has not had any urinary tract infectionwhile on trimethoprim prophylaxis. Plan to continue with that for 3 months (end Jul 09). Can consider stopping at that point. Discussed that estrogen cream is unlikely to be causing hot flashes. Discussed that she can continue with it until her supply is done if she wishes to do that. Estrogen cream should help with preventing genitourinary symptoms of menopause and potentially urinary tract infections. She is not bothered by the hot flashes and is not interested in any symptomatic management. Any new medications given to pt. have been explained as to directions, reasons for prescribing and side effects. Megan Soares M.D. Resident Cosigned by Davy Sim M.D., M.S. at 05/08/2024 10:07 AM PROFESSOR OF LAW ESSOR OF LAW ESSOR OF LAW documented in this encounter Plan of Treatment Not on file documented as of this encounter Visit Diagnoses Diagnosis Follow Up Examination Status Post Surgery- Primary documented in this encounter Care Teams Chef'S Assistant Relationship Specialty Start Date End Date Jana Hawkins MPAS, P.A.-C. [address] [place] [phone] PCP - General Internal Medicine 10/22/22 documented as of this encounter
--- OUTSIDE RECORDS SUMMARY | 2024-05-15 02:34 | XMS_ITS | Encounter Summary ---
Author Organization [facility] Address [address] [place] [address] Care Team Providers Care Environmental Conflict Manager Name Role Phone Jana Hawkins P.A.-C. Primary Care Pro vider Encounter Details Date Type Department Care Team (Latest Contact Info) Description 03/22/2024 Clinical Communication Department of Obstetrics and Gynecology, Division of Urogynecology in [place], [place] [address] [place] [address] Davy Sim M.D., M.S. [address] [place] [phone] Social History Tobacco Use Types Packs/Day Years Used Date Smoking Tobacco: Former Cigarettes 1 94 0 12/06/1972 - 12/25/2019 Passive Smoke Exposure: Never Smokeless Tobacco: Never Alcohol Use Standard Drinks/Week Comments Not Currently 0 (1 standard drink = 0.6 oz pur e alcohol) [facility] Utilities Answer Date Recorded In the past [...] your living situation today? I have a [facility] place to live 03/09/2024 Comments No Sex and Gender Information Value Date Recorded Sex Assigned at Female 10/06/2023 6:16 PM CDT Legal Sex Female 9:58 PM SUPERVISOR [employer] Gender Identity Female 10/14/2017 8:36 AM CDT Sexual Orientation Straight 10/14/2017 8: 36 AM CDT documented as of this encounter Miscellaneous Notes * Telephone Encounter - Omar Meraz R.N. - 03/22/2024 12:47 PM CDT I contacted Camilla back to inform her that I reviewed her concerns with Dr. Sim. He stated thatusing a sitz bath is okay. She should not sit for a prolonged period of time. She can stop self-catheterization. He would recommend that she only catheterize if she develops a strong urge to urinate and is unable to or if she urinates, but does not feel that her bladder is empty. Finally, Dr. Sim would recommend that she try [place] cream/Zinc Oxide or Over the Counter Anusol. Camilla verbalizes understanding of the items discussed and is appreciative of the phone call. Electronically signed by: Omar Meraz R.N. 03/22/24 12:49 PM CDT * Telephone Encounter - Omar Meraz R.N. - 03/22/2024 10:05 AM CDT ASSESSMENT Camilla calls the office with concerns of hemorrhoids. Camilla is well known to the [facility]. She is status post Vaginal Hysterectomy, Bilateral Salpingo-Oophorectomy, Enterocele/Vaginal Colpopexy, Anterior Vaginal Repair, Posterior Repair, and Cystoscopy by Dr. Sim on 03/09/2024. Camilla was diagnosed with a positive urinary tract infection on 03/15/2024. She was given a prescription for Macrobid. Camilla notes that the Macrobid has given her symptoms of diarrhea. This has since resolved,however, she notes that her hemorrhoids are very bothersome to her. She has been using over the counter Preparation H (pads and suppositories). She questions if she can sit in a sitz bath. She also qu estions if Dr. Sim will prescribe a prescription medication for her hemorrhoids, stating she feels like she has a fissure. Camilla states that she is urinating much better. She notes that yesterday her urine totals were as follows: 03/21/2024: Void 300/SIC 300 Void 400/SIC 100 Void 400/SIC 100 03/22/2024: Void 300/SIC 300 Camilla questions how long she should catheterize for. PLAN I have reviewed the following with Camilla. I have informed Camilla that she can sit in a sitz bath for a very short period of time (5-10 min). She should rinse off int he shower prior to this. I will discuss with Dr. Sim and his team her concerns regarding the medication for her hemorrhoids. I have informed Camilla that I suspect she can stop self-catheterization. I will review this with Dr. Sim. We reviewed that she should catheterize in the following instances: 1) If she develops an urge to urinate, but is unable to 2). She urinates but does not feel empty after this void. I will contact Camilla back with Dr. Sim's recommendations. Camilla verbalizes understanding of the items discussed and is okay with this plan. Disposition/Recommendation: notified provider and awaiting recommendations. Information/Education: patient/caller able to teach back. Caller agreeable to plan of care: yes. The following references were used: nursing clinical judgement. documented in this encounter Plan of Treatment Not on file documented as of this encounter Visit Diagnoses Not on filedocumented in this encounter Care Teams Environmental Conflict Manager Relationship Specialty Start Date End Date Jana Hawkins MPAS, P.A.-C. [address] [place] [phone] PCP - General Internal Medicine 10/22/22 documented as of this encounter
--- OUTSIDE RECORDS SUMMARY | 2024-05-15 02:34 | XMS_ITS | Referral Summary ---
Author Organization [facility] Address [address] [place] [address] Care Team Providers Care District Sales Leader Name Role Phone Jana Hawkins P.A.-C. Primary Care Pro vider Source Comments Patient records contain information from all sites at [facility]. For routine questions regarding patient records, call [phone] during business hours, M-F 8:00 AM - 5:00 PM Central Time. 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 Follow Up Examination Status Post Surgery (Primary Dx) 04/11/2024 Orders Only [facility] Jana Hawkins MPAS, P.A.-C. 03/29/2024 Orders Only Department of Obstetrics and Gynecology, Division of Gynecologic Oncology in [place], [place] [address] [place] [address] Megan Soares M.D. 03/29/2024 Clinical Communication Department of Obstetrics and Gynecology, Division of Urogynecology in [place], [place] [address] [place] [address] Davy Sim M.D., M.S. Communication 03/28/2024 2:49 PM CDT - 03/28/2024 11:59 PM CDT Hospital Encounter Department of Laboratory Medicine in [address] [phone] Davy Sim M.D., M.S. Urinary Tract Infection Site Not Specified Discharge Disposition: Home or Self Care 03/28/2024 Clinical Communication Department of Obstetrics and Gynecology, Division of Urogynecology in [place], [place] [address] [place] [phone] Davy Sim M.D., M.S. Communication 03/24/2024 Clinical Communication Department of Obstetrics and Gynecology, Division of Urogynecology in [place], [place] [address] [place] [phone] Omar Meraz R.N. 03/22/2024 Clinical Communication Department of Obstetrics and Gynecology, Division of Urogynecology in [place], [place] [address] [place] [phone] Davy Sim M.D., M.S. 03/20/2024 Clinical Communication Department of Obstetrics and Gynecology, Division of Urogynecology in [place], [place] [address] [place] [phone] Davy Sim M.D., M.S. Communication 03/17/2024 Clinical Communication Department of Obstetrics and Gynecology, Division of Urogynecology in [place], [place] [address] [place] [phone] Lexie oRsas M.B.B.S. Results 03/17/2024 Orders Only Department of Obstetrics and Gynecology, Division of Urogynecology in [place], [place] [address] [place] [phone] Lexie Rosas M.B.B.S. 03/15/2024 10:36 AM CDT - 03/15/2024 11:59 PM CDT Hospital Encounter Department of Laboratory Medicine in [place], [place] [address] [place] [address] Davy Sim M.D., M.S. Symptom Urinary Discharge Disposition: Home or Self Care 03/14/2024 Clinical Communication Department of Obstetrics and Gynecology, Division of Urogynecology in [place], [place] [address] [place] [address] Omar Meraz R.N. Communication 03/13/2024 Clinical Communication Department of Community Internal Medicine in [place], [place] [address] [place] [address] Lacy Brooke R.N. Post Hospital Follow-up 03/13/2024 Clinical Communication Department of Obstetrics and Gynecology, Division of Urogynecology in [place], [place] [address] [place] [address] Omar Meraz R.N. Post-op call 03/13/2024 Clinical Communication Department of Obstetrics and Gynecology in [place], [place] [address] [place] [address] Crystal Whitman R.N., CRRN Post-op Follow-up 03/09/2024 5:45 AM CDT - 03/11/2024 5:18 PM CDT Hospital Encounter [facility], Fifth Floor [address] [place] [address] Davy Sim M.D., M.S. Retention Urinary (Primary Dx); Cystocele Rectocele With Uterine Prolapse Discharge Disposition: Home or Self Care 03/09/2024 7:25 AM CDT - 03/09/2024 11:32 AM CDT Surgery [facility] OR [address] [place] [address] Davy Sim M.D., M.S. HYSTERECTOMY TOTAL VAGINAL. 03/09/2024 7:46 AM CDT Anesthesia Event [facility] OR [facility] [place] [phone] Brian Garcia M.D. 02/21/2024 10:40 AM CDT Comprehensive Visit Department of Community Internal Medicine in [place], [place] [address] [place] [address] Jana Hawkins MPAS, P.A.-C. Preoperative Exam 02/14/2024 Clinical Communication Department of Obstetrics and Gynecology, Division of Urogynecology in [place], [place] [address] [place] [address] Davy Sim M.D., M.S. Communication from Last 3 Months Allergies Active Allergy Reactions Criticality Noted Date Comments Perfume Swelling High 10/10/2012 [place] Sulfa (Sulfonamide Antibiotics) Headache,Photosensiti vity Medium 08/26/2006 [...] Take 250 mg by mouth daily. 08/30/19 24 Active estradioL (Estrace) 0.1 mg/g (0.01%) vaginal cream Insert 1 g into the vagina 3 (three) times a week. Use at bedtime. Lubricate pessary with if for insertion. 42.5 g 11 12/27/19 24 Active ondansetron ODT (Zofran-ODT) 4 mg disintegrating tablet Dissolve 4 mg in the mouth. 11/29/19 24 Active acetaminophen (TylenoL) 500 mg tablet Take [...] needed for painful urination. 10 tablet 03/15/20 24 Active trimethoprim (Trimpex) 100 mg tablet Take 1 tablet (100 mg total) by mouth daily. 30 tablet 2 04/10/20 24 025 Active oxyCODONE (Roxicodone) 5 mg immediate release tabletIndications: Acute Pain Take 1 tablet (5 mg total) by mouth every 4 (four) hours as needed for pain (not controlled with ibuprofen and tylenol) Indication: Acute Pain. 10 tablet 1:41 PM CDT 03/09/20 024 Discontin ued(Thera [...] from 09/23/2017:Stage IA(pT1c, pN0, cM0, G2, ER+, ND+, HER2-, Oncotype DX score: 15) - Signed by Sunil Torres M.D. on 11/02/2017 Clinical: Unsigned Overweight Body Mass Index 25-29.9 Adult 016 Gastroesophageal Reflux Disease Without Esophagi tis 07/06/2015 Overview (11/15/2017): Overview: Schatzke ring - 06/22 Cystocele 07/06/2015 Overview (11/15/2017): Overview: Pessary from [place] [facility] with support Rectocele 10/10/2012 Polyp Colon 10/01/2009 Overview (11/15/2017): Overview: Colonoscopy 09/2009 polyps repeat in 5 years Colonoscopy 10/2013 hyperplastic polyp repeat in 5 years Resolved Problems Problem Noted Date Diagnosed Date Resolved Date Elevated Blood Pressure 08/22/201502/05 Immunizations Name Administration Dates Next Due HZV [...] (FLUZ ONE/FLUARIX) (6 months and older)(PF) 03/30/2022 Social History Tobacco Use Types Packs/Day Years Used Date Smoking Tobacco: Former Cigarettes 1 94 0 12/06/1972 - 12/25/2019 Passive Smoke Exposure: Never Smokeless Tobacco: Never Tobacco Cessation:Counseling Given: Not Answered Alcohol Use Standard Drinks/Week Comments Not Currently 0 (1 standard drink = 0.6 oz pur e alcohol) [facility] [employer] Answer Date Recorded In the past 12 months has e [place], gas, oil, or water Team Apart threatened to shut off services in your [...] your living situation today? 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 LAB URINE ORDERABLES F inal Result [facility] [address] [facility] [place] [address], [facility] FB60 [facility] in [place] [address] [facility] [place] [address] * (ABNORMAL) CBC without Differential (03/10/2024 2:13 [...] 2:13 PM CDT 03/10/2024 2:18 PM CDT Chante Lawson M.D. LAB BLOOD ADD-ON Lima l Result [facility] [address] [place] [address], [facility] METH Formerly named [facility] [address] [place] [address] * (ABNORMAL) Basic Metabolic Panel (03/10/2024 12:31 AM CDT) Potassium, S 4.8 3.6 - 5.2 mmol/L [...] M.D. LAB BLOOD ADD-ON Final Res ult [facility] [address] [place] [address], [place] DTL Formerly named [facility] [address] [place] [address] * DX Abdomen 1 View (03/09/2024 11:33 [...] ranging from 0.6 cm to 3 cm. Insurance Representative tissue submitted for permanent sections. Grossed by Rubens Platt.S., PA([facility]). B. Received fresh labeled left fallopian tube and ovary is a 5.9 x 0.6 cm fallopian tube with an attached 2.1 x 0.9 x 0.4 cm ovary. There are multiple paratubal and adnexal cysts, ranging from 0.2 cm to 0.8 cm in greatest dimension. The fallopian tube is otherwise unremarkable. The ovary has a solid cut surface. Insurance Representative tissue submitted for permanent sections. Grossed by Margoth Zarco M.D.-Pathology Resident and Anais Regan M.S., PA([facility]). C. Received fresh labeled right fallopian tube and ovary is a 0.6 g, 1.8 x 1.1 x 0.6 cm ovary with 6.4 x 0.8 cm fallopian tube. The ovary has a smooth outer surface and solid cut surface. The fallopian tube has multiple paratubal cysts ranging from 0.1 cm to 0.6 cm. Insurance Representative tissue submitted for permanent sections. Grossed by Umair Kent, DEANDRA([facility]). 03/11/2024 7:00 AM CDT METH Block Summary [...] of the testing process was performed at [facility] site [id number]. Digital imaging was used in the diagnostic assessment of this case. 03/11/2024 7:00 AM CDT METH Tissue (Uterus) 03/09/2024 8 :43 AM CDT Tissue (Fallopian Tube, Left) 03/09/2024 8:54 AM CDT Tissue (Fallopian Tube, Right) 03/09/2024 9:02 AM CDT us Davy Sim M.D., M.S. LAB SURG PATH ORDERABL ES Final Result [facility] [address] [place] [address], [facility] [address] [facility] [address] [place] [address] * LDA ANE ENDOTRACHEAL AIRWAY (03/09/2024 8:01 [...] ETT location: oral VL device: glide scope [place] scope blade size: 3 Tube size: 7 [...] CDT) Ventricular Rate ECG/Min 66 BPM MUSE ND Interval 160 ms MUSE QRSD Interval 80 ms MUSE QT Interval 420 ms MUSE QTC Interval 440 ms MUSE P [place] 72 degrees MUSE R [place] 26 degrees MUSE T Wave [place] 63 degrees MUSE 03/09/2024 7:20 AM CDT [...] MUSE NA from Last 3 Months Insurance [facility] MEDICARE Advance Directives For more information, please contact: [phone] * Full Code (Latest Code Status on File) Date Activated Date Inactivated Comments 03/09/2024 1:52 PM 03/11/2024 7:24 PM Question Answer Comments Full Code: Discussed Care Teams District Sales Leader Relationship Specialty Start Date End Date Jana Hawkins MPAS, P.A.-C. [address] [place] [address] [place] [phone] PCP - General Internal Medicine 10/22/22
--- OUTSIDE RECORDS SUMMARY | 2024-05-15 02:35 | XMS_ITS | Encounter Summary ---
Author Organization [facility] Address [address] [place] [address] Care Team Providers Care Prize Jacker Name Role Phone Jana Hawkins P.A.-C. Primary Care Pro vider Reason for Visit * Reason Onset Date Comments Results 03/17/2024 Encounter Details Date Type Department Care Team (Latest Contact Info) Description 03/17/2024 Clinical Communication Department of Obstetrics and Gynecology, Division of Urogynecology in [place], [place] [address] [place] [address] Lexie Rosas M.B.B.S. [address] [place] [phone] Results Social History Tobacco Use Types Packs/Day Years Used Date Smoking Tobacco: Former Cigarettes 1 94 0 12/06/1972 - 12/25/2019 Passive Smoke Exposure: Never Smokeless Tobacco: Never Alcohol Use Standard Drinks/Week Comments Not Currently 0 (1 standard drink = 0.6 oz pur e alcohol) [facility] Utilities Answer Date Recorded In the past [...] your living situation today? 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 - 03/17/2024 8:23 AM CDT I called Camilla. I let her know about her urine culture. I informed her that she has UTI which is caused by Enterobacter. Told her that she can continue the Macrobid that should that was started on 03/15/2024 because species is sensitive to this antibiotic. She appreciates my phone call. We also went over how she can reuse her catheter (SIC). I instructed her to clean it and dry it before using it. She is appreciative of my phone call and she will be in touch with us in case of any questions orconcerns. documented in this encounter Plan of Treatment Not on file documented as of this encounter Visit Diagnoses Not on filedocumented in this encounter Care Teams Prize Jacker Relationship Specialty Start Date End Date Jana Hawkins MPAS, P.A.-C. [address] [place] [phone] PCP - General Internal Medicine 10/22/22 documented as of this encounter
--- OUTSIDE RECORDS SUMMARY | 2024-05-15 02:35 | XMS_ITS | Encounter Summary ---
Author Organization [facility] Address [address] [place] [address] Care Team Providers Care Sports Intern Name Role Phone Jana Hawkins P.A.-C. Primary Care Pro vider Reason for Visit * Reason Onset Date Comments Communication 03/14/2024 Encounter Details Date Type Department Care Team (Latest Contact Info) Description 03/14/2024 Clinical Communication Department of Obstetrics and Gynecology, Division of Urogynecology in [place], [place] [address] [place] [address] Dominick Mosquera R.N. [address] [place] [phone] Communication Social History Tobacco Use Types Packs/Day Years Used Date Smoking Tobacco: Former Cigarettes 1 94 0 12/06/1972 - 12/25/2019 Passive Smoke Exposure: Never Smokeless Tobacco: Never Alcohol Use Standard Drinks/Week Comments Not Currently 0 (1 standard drink = 0.6 oz pur e alcohol) [facility] Utilities Answer Date Recorded In [...] your living situation today? 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 - 03/15/2024 10:26 AM CDTAddended by: DOMINICK MOSQUERA on: 03/15/2024 10:26 AM Modules accepted: Orders * Telephone Encounter - Dominick Mosquera R.N. - 03/15/2024 10:17 AM CDT I contacted Camilla to inform her that Dr. Sim will send a prescription for Macrobid and Pyridium to her local pharmacy. She can start this once she completes the urine culture. We reviewed that Dr. Sim may need to change the antibiotic based on the sensitivity results. The pyridium will turn her urine a bright orange color. Camilla verbalizes understanding of the items discussed and is okay with this plan. Electronically signed by: Dominick Mosquera R.N. 03/15/24 10:25 AM CDT * Addendum Note - Dominick Mosquera R.N. - 03/15/2024 9:53 AM CDTAddended by: DOMINICK MOSQUERA on: 03/15/2024 09:53 AM Modules accepted: Orders * Telephone Encounter - Dominick Mosquera R.N. - 03/15/2024 9:45 AM CDT ASSESSMENT Camilla calls the office with concerns of a possible urinary tract infection. She is well known to the [facility]. She is status post Vaginal Hysterectomy, Bilateral Salpingo-Oophorectomy, Enterocele Repair/Colpopexy, Anterior Repair, Posterior Repair, and Cystoscopy on 03/09/2024. Camilla statesthat she is more sore today. It is more painful to catheterize her self. She notes symptoms of sweats and malaise. She has symptoms of dysuria. Camilla would like to have a urine culture completed. She questions if Dr. Sim would start her on an antibiotic prior to the culture results returning. Camilla continues to alternate Tylenol and Advil on a schedule. She is utilizing ice and heat therapy. Camilla is eating and drinking without difficulty. Camilla continues to need to self-catheterize to urinate. She will urinate small amounts (2-3 tablespoons) on her own. She has developed an urge to urinate. She continues to self-catheterize every 3 hours. Camilla has not had a bowel movement today, but did have a soft, formed bowel movement yesterday. Camilla notes a very small amount of vaginal discharge. PLAN I have reviewed the following with Camilla. I did notify Dr. Sim while we were on the phone and he is okay with ordering a urine culture to be completed. Camilla would like to have this done at [facility]. She will bring her own supplies to catheterize herself. We reviewed that the urine culture results can take approximately 24-48 hours to come back. [facility] Camilla verbalizes understanding of the items discussed and is okay with this plan. Disposition/Recommendation: self-care . appropriate at this time, patient encouraged to call back with questions. Information/Education: patient/caller able to teach back. Caller agreeable to plan of care: yes. The following references were used: provider Dr. Davy Sim MD . * Telephone Encounter - Dominick Mosquera R.N. - 03/14/2024 1:37 PM CDT Information Discussed I contacted Camilla for an update on her progress. Camilla is well known to the [facility]. Thisconversation is in follow-up of our discussion yesterday. Please see my Telephone Encounter from 03/13/2024 for the specifics of our previous discussion. Camilla states that she is feeling somewhat better. She reports her pain with activity a 1.5-2/10 using the 0-10 pain scale. She denies pain at rest currently. Camilla continues to alternate Tylenol and Advil on a schedule. She continues to use ice and heat therapy. I have encouraged her to continue with the above measures. Camilla is eating and drinking without difficulty. Camilla continues to need to catheterize to empty her bladder. She notes a small amount of urine when she first gets up to urinate in the am. She states that her bladder is very full in the am. She continues to self-catheterize every 3 hours. Camilla is passing gas and having bowel movements. Camilla denies symptoms of vaginal spotting or discharge. Camilla is abiding by the lifting and activity restrictions. She notes that she is very tired. We reviewed that this is normal. I have encouraged her to rest. PLAN I have informed Camilla that I am hopeful that her bladder will start to empty as her pain and post-operative swelling continue to improve. We did briefly review the specifics of her anterior repair. I will plan to contact Camilla tomorrow for an update. I have asked that she contact our office priorto this with questions or concerns. Camilla verbalizes understanding of the items discussed and is okay with this plan. Disposition/Recommendation: notified provider and awaiting recommendations and self-care . appropriate at this time, patient encouraged to call back with questions Information/Education: patient/caller able to teach back Caller agreeable to plan of care: yes The following references were used: nursing clinical judgement documented in this encounter Plan of Treatment Not on file documented as of this encounter Results * (ABNORMAL) Bacterial Culture, Aerobic + Susceptibility, Urine (03/15/2024 10:42 AM CDT) Urine Culture ENTEROBACTER CLOACAE COMPLEX >100,000 cfu/mL (A) 03/17/2024 6:30 AM CDT MKTO Urine (Urine, Straight Catheter) 03/15/2024 10:42 AM CDT 03/15/2024 7:09 PM CDT Comment:Specimen Source Site : Urine Narrative Organism Antibiotic Method Susceptibility Enterobacter cloacae complex Ceftazidime SUSCEPTIBILITY, KUSUM (MCG/ML) <=1 mcg/mL: Susceptible Enterobacter cloacae complex Ceftriaxone SUSCEPTIBILITY, KUSUM (MCG/ML) <=1 mcg/mL: Susceptible Enterobacter cloacae complex Cefepime SUSCEPTIBILITY, KUSUM (MCG/ML) <=1 mcg/mL: Susceptible Enterobacter cloacae complex Aztreonam SUSCEPTIBILITY, KUSUM (MCG/ML) <=1 mcg/mL: Susceptible Enterobacter cloacae complex Ertapenem SUSCEPTIBILITY, KUSUM (MCG/ML) <=0.5 mcg/mL: Susceptible Enterobacter cloacae complex Gentamicin SUSCEPTIBILITY, KUSUM (MCG/ML) <=1 mcg/mL: Susceptible Enterobacter cloacae complex Tobramycin SUSCEPTIBILITY, KUSUM (MCG/ML) <=1 mcg/mL: Susceptible Enterobacter cloacae complex Levofloxacin SUSCEPTIBILITY, KUSUM (MCG/ML) <=0.12 mcg/mL: Susceptible Enterobacter cloacae complex Nitrofurantoin SUSCEPTIBILITY, KUSUM (MCG/ML) 32 mcg/mL: Susceptible Enterobacter cloacae complex Trimethoprim + Sulfamethoxazole SUSCEPTIBILITY, KUSUM (MCG/ML) <=20 mcg/mL: Susceptible Davy Sim M.D., M.S. LAB MICROBIOLOGY - GEN ERAL ORDERABLES Final Result Performing Organization Address [facility]/State/ZIP Co de Phone Number [facility] [place] [address], [facility] MKTO [facility] in [place] [address] [place] [address] documented in this encounter Visit Diagnoses Diagnosis Symptom Urinary- Primary documented in this encounter Care Teams Sports Intern Relationship Specialty Start Date End Date Jana Hawkins MPAS, P.A.-C. [address] [place] [address] [place] [address] PCP - General Internal Medicine 10/22/22 documented as of this encounter
--- OUTSIDE RECORDS SUMMARY | 2024-05-15 02:35 | XMS_ITS | Encounter Summary ---
Author Organization [facility] Address [address] [place] [address] Care Team Providers Care Rn Family Practice Name Role Phone Jana Hawkins P.A.-C. 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 Procedures HYSTERECTOMY TOTAL VAGINAL. SALPINGO-OOPHORECTOMY. REPAIR ENTEROCELE. COLPOPEXY VAGINAL. REPAIR ANTERIOR, VAGINAL. REPAIR POSTERIOR VAGINA. CYSTOSCOPY RIGID. Referral ID Status Reason Start Date Expiration Date Visits Re quested Visits Authorized [id number] 1 1 Encounter Details Date Type Department Care Team ([facility] Contact Info) Description 03/09/2024 7:46 AM CDT Anesthesia Event [facility] [address] [place] [address] Brian Garcia M.D. [address] [place] [address] Anesthesia Record Procedure Summary Procedure Name Responsible Anesthesiologist Anesthesia Start Time Anesthesia Stop Time HYSTERECTOMY TOTAL VAGINAL. Brian Garcia M.D. 03/09/24 0746 03/09/24 1138 Events Date Time Event Comment 03/09/2024 0730 0746 An Start Machine/Equipme nt Checked Infection Precautions Followed Procedure/Site Verified NPO Status Verified Supine Standard ASA Monitors Applied 0753 An Induction 0755 An Intubation 0757 Turnover to Proceduralist 0819 Proc Start 0900 Anes CS Handoff I, Pedro Luisjaylin siddiqi, MANAGER GRAPHIC, LOBBY CONCIERGE, DNAP, attest that I have reconciled the controlled substances and that I have reviewed all the significant information with the next anesthesia provider assuming care of this patient. 0917 Anes CS Handoff I, Melodie Cyndy anders MANAGER GRAPHIC, LOBBY CONCIERGE, Ph.D., attest that I have reconciled the controlled substances and that I have reviewed all the significant information with the next anesthesia provider assuming care of this patient. 1102 Anes CS Handoff I, Pedro Luis Ambrocio siddiqi, SEJAL, LOBBY CONCIERGE, DNAP, attest that I have reconciled the controlled substances and that I have reviewed all the significant information with the next anesthesia provider assuming care of this patient. 1110 Quick Note Local per surge on 1119 Turnover to ANE Staff 1119 Proc Fin 1121 Airway Removal Criteria Met 1121 Extubation/Airway Removed 1125 an stop data 1138 An End I completed my handoff to the receiving staff during which we 1. Identified the patient 2. Identified the responsible provider 3. Reviewed the pertinent medical history 4. Discussed the surgical course 5. Reviewed intra-op anesthesia management and issues during anesthesia 6. Set expectations for post-procedure period 7. Allowed opportunity for questions and acknowledgement of understanding. Meds Name Total fentanyl injection 50 mcg/mL 150 mcg lidocaine 2% (mg) injection 100 mg rocuronium 10 mg/mL injection 130 mg phenylephrine 100 mcg/mL injection 200 m cg ePHEDrine PF 5 mg/mL syringe injection 2 5 mg ondansetron 4 mg/2 mL injection 4 mg sugammadex 100 mg/mL injection 150 mg glycopyrrolate 0.2 mg/mL injection 0.2 m g propofol 10 mg/mL infusion 1,405.51 mg propofol 10 mg/mL injection 130 mg ceFAZolin injection 2,000 mg (Ancef) 4 g dexAMETHasone (Decadron) injection 4 mg/ mL 4 mg HYDROmorphone (Dilaudid) PF injection 2 mg/mL 0.6 mg ketorolac (ToradoL) injection 30 mg/mL 1 5 mg Lactated Ringers Free Drip 1,675 mL * Agents No agents on file. * Blood No blood administrations on file. Lines, Drains, and Airways Type Details Placement Removal Indwelling Urinary Catheter Placement Date: 03/09/24; Inserted by: Dr. Lawson; Size: 16 Fr.; Balloon Size: 5 mL (10 mL sterile water in balloon); Urine Returned: Yes; Removal Date: 03/10/24; Removal Time: 1223; Removal Reason: Per order 03/09/24 0000 by Mayi Flores, R.NBrendan 03/10/24 1224 by Dana Snyder Peripheral IV Placement Date: 08/28; Placement Time: 651; Catheter Size: 22 G; Orientation: Left, Posterior; Location: Hand; Site Prep: Chlorhexidine (Preferred); Technique: Anatomical landmarks; Inserted by: rkl; Insertion Attempts: 1; Removal Date: 03/09/24; Removal Time: 2218; Removal Reason: Removed by patient 03/09/24651 by Daphne Reddy, CPT([facility]) 03/09/242218 by Clarissa Felton RBrendanNBrendan ETT Placement Date: 08/28; Placement Time: 800 (created via procedure documentation); Mask Ventilation: Easy mask; Technique: Video laryngoscopy; Type: Standard ETT; Single Lumen Tube Size: 7 mm; Cuffed: Yes; Location: Oral; Grade View: Grade 1; Insertion Attempts: 1; Placement Verification: Bilateral breath sounds, Positive ETCO2, Symmetrical chest wall movement; Removal Date: 03/09/24; Removal Time: 11203/09/24 08 by Pedro Luis Felix APRN, NICOLE, DNAP 03/09/24 112 by Melodie Fuentes APRN, CRNA, Ph.D. Wound 03/09/24; 08; Inci lillian; IPSI(s) present; Initial packing; Vagina; iodoform packing; Primary Service; Removed by physician; 03/10/24; 0903/09/24 0830 by Mayi Flores, R.NBrendan 03/10/24 09 by Kaleigh Okeefe RBrendanNBrendan documented in this encounter Social History Tobacco Use Types Packs/Day Years Used Date Smoking Tobacco: Former Cigarettes 1 94 0 12/06/1972 - 12/25/2019 Passive Smoke Exposure: Never Smokeless Tobacco: Never Alcohol Use Standard Drinks/Week Comments Not Currently 0 (1 standard drink = 0.6 oz pur e alcohol) [facility] Utilities Answer Date Recorded In the [...] living situation today? 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 - 03/09/2024 12:29 PM CDT Patient: Camilla Montalvo Procedure Summary Date: 03/09/24 Room / Location: [place] [address] / [facility] in [place], [place] Anesthesia Start: 745 Anesthesia Stop: 1137 Procedures: HYSTERECTOMY TOTAL VAGINAL. SALPINGO-OOPHORECTOMY. (Bilateral) REPAIR ENTEROCELE. COLPOPEXY VAGINAL. REPAIR ANTERIOR, VAGINAL. REPAIR POSTERIOR VAGINA. CYSTOSCOPY RIGID. Diagnosis: Cystocele Rectocele With Uterine Prolapse (Cystocele Rectocele With Uterine Prolapse [N81.4].) Providers: Davy Sim M.D., M.S. Responsible Provider: Brian Garcia M.D. Anesthesia Type: general ASA Status: 3 Anesthesia Type: general Last vitals Vitals Value Taken Time BP 143/71 03/09/24 1216 Temp 36.4 ??C 03/09/24 1135 Pulse 63 03/09/24 1228 Resp 13 03/09/24 1228 SpO2 97 % 03/09/24 1228 Vitals shown include unfiled device data. Please reference Vitals flowsheet for most recent vital signs. Anesthesia Post Evaluation Patient Disposition: general care unit Cardiovascular status: hemodynamics (HR & BP) acceptable Respiratory status: patent airway with spontaneous effort Temperature: normothermic Oxygen requirements: room air Level of consciousness: awake Pain score: pain adequately controlled and/or at baseline Post Op nausea/vomiting: none Hydration status: euvolemic Notable Events No notable events documented. * Anesthesia Preprocedure Evaluation - Brian Garcia M.D. - 03/09/2024 8:12 AM CDT Preprocedure Anesthesia & H&P Assessment Procedure Summary Anesthesia Start Date/Time: 03/09/24 0746 Procedures: HYSTERECTOMY TOTAL VAGINAL. SALPINGO-OOPHORECTOMY. (Bilateral) REPAIR ENTEROCELE. COLPOPEXY VAGINAL. REPAIR ANTERIOR, VAGINAL. REPAIR POSTERIOR VAGINA. CYSTOSCOPY RIGID. Diagnosis: Cystocele Rectocele With Uterine Prolapse [N81.4] Pre-op diagnosis: Cystocele Rectocele With Uterine Prolapse [N81.4]. Location: [place] [address] / [facility] in [place], [place] Providers: Davy Sim M.D., M.S. Pertinent components of the patient's history including current problem list, medical history, surgical history, family history, social history, medications and allergies were reviewed. Present illness and pre-op diagnosis were confirmed. The planned surgery / procedure was verified with the patient / legal guardian. The patient's general health condition remains unchanged RELEVANT COMORBID CONDITIONS GI (+) Gastroesophageal Reflux Disease Without Esophagitis ONC (+) Cancer Breast Personal History Other (+) Overweight Body Mass Index 25-29.9 Adult OBJECTIVE PHYSICAL EXAMINATION Airway (HEENT) Mallampati: II Cardiovascular Rhythm: Regular Pulmonary Pulmonary Assessment: Clear General / Constitutional Constitutional Assessment: Normal ASSESSMENT / PLAN ANESTHESIA PLAN ASA: 3 Anesthesia Plan: general Patient seen and allergies reviewed, anesthesia plan and risks discussed directly with patient /legal guardian or through an cementing bulk material operator. The use of blood products not discussed Approval to Proceed: approved for anesthesia * Anesthesia Procedure Notes - Pedro Luis Felix APRN, CRNA, DNAP - 03/09/2024 8:07 AM CDTAssociated Order(s): Airway Airway Date/Time: 03/09/2024 8:01 AM Performed by: Pedro Luis Felix APRN, CRNA DNAFred Authorized by: Brian Garcia M.D. Patient location during procedure: OR / Procedure Area PROCEDURE DETAILS: Mask difficulty assessment: easy mask Final airway type: video laryngoscope Laryngeal Manipulation: no Final best view of glottic structures - Cormack/Lehane Score: grade 1 ETT location: oral VL device: glide scope [place] scope blade size: 3 Tube size: 7 [...] Procedure outcome: successful Notable Events: no complications documented in this encounter Plan of Treatment Not on file documented as of this encounter Procedures Procedure Name Priority Date/Time Associated Diagnosis Comments LDA ANE ENDOTRACHEAL AIRWAY Routine 03/09/2024 8:01 AM CDT documented in this encounter Results * LDA ANE ENDOTRACHEAL AIRWAY (03/09/2024 8:01 [...] ETT location: oral VL device: glide scope [place] scope blade size: 3 Tube size: 7 [...] Procedure outcome: successful Notable Events: no complications Brian Garcia M.D. ANESTHESIA ORDERABLES Fin al Result documented in this encounter Visit Diagnoses Not on filedocumented in this encounter Administered Medications Inactive Administered Medications - up to 3 most recent administrations Medication Order MAR Action Action Date Dose Rate Site ceFAZolin injection 2,000 mg (Ancef) 2,000 mg (rounded from 1,772.5 mg = 25 mg/kg 70.9 kg Dosing weight), intravenous, Once, On Jerica 03/09/24 at 0730, For 1 dose, Intra-Op, Administer within 1 hour prior to surgical incision For immediate IV push administration, reconstitute vial per IVAG or package insert instructions. See IVAG for administration guidelines., Drug Monitoring Program: Pharmacist to adjust medication dosing based on indication and drug clearance factors., Indications: Prophylaxis, surgicalIndications:Prophylaxis, surgical Given 03/09/2024 10:58 AM CDT 2 g Given 03/09/2024 8:06 AM CDT 2 g dexAMETHasone injection (Decadron) intravenous, As needed, Starting on Jerica 03/09/24 at 0806, Anesthesia Intra-op Given 03/09/2024 8:06 AM CDT 4 mg ePHEDrine (PF) injection intravenous, As needed, Starting on Jerica 03/09/24 at 0831, Anesthesia Intra-op Given 03/09/2024 10:46 AM CDT 10 mg Given 03/09/2024 10:40 AM CDT 5 mg Given 03/09/2024 8:31 AM CDT 10 mg fentaNYL injection (Sublimaze) intravenous, As needed, Starting on Jerica 03/09/24 at 0753, Anesthesia Intra-op Given 03/09/2024 11:36 AM CDT 25 mcg Given 03/09/2024 11:18 AM CDT 25 mcg Given 03/09/2024 7:53 AM CDT 100 mcg glycopyrrolate injection (RobinuL) intravenous, As needed, Starting on Jerica 03/09/24 at 0831, Anesthesia Intra-op Given 03/09/2024 8:31 AM CDT 0.2 mg HYDROmorphone (PF) injection (Dilaudid) intravenous, As needed, Starting on Jerica 03/09/24 at 0820, Anesthesia Intra-op Given 03/09/2024 11:30 AM CDT 0.2 mg Given 03/09/2024 8:20 AM CDT 0.4 mg ketorolac injection (ToradoL) intravenous, As needed, Starting on Jerica 03/09/24 at 1106, Anesthesia Intra-op Given 03/09/2024 11:06 AM CDT 15 mg Lactated Ringer's intravenous, Continuous Infusion: Per Instructions PRN, Starting on Jerica 03/09/24 at 0750, Anesthesia Intra-op New Bag 03/09/2024 9:22 AM CDT New Bag 03/09/2024 7:50 AM CDT lidocaine (PF) (cardiac) injection intravenous, As needed, Starting on Jerica 03/09/24 at 0753, Anesthesia Intra-op Given 03/09/2024 7:53 AM CDT 100 mg ondansetron (PF) injection (Zofran) intravenous, As needed, Starting on Jerica 03/09/24 at 1058, Anesthesia Intra-op Given 03/09/2024 10:58 AM CDT 4 mg phenylephrine injection intravenous, As needed, Starting on Jerica 03/09/24 at 0814, Anesthesia Intra-op Given 03/09/2024 8:22 AM CDT 100 mcg Given 03/09/2024 8:14 AM CDT 100 mcg propofol 10 mg/mL infusion (Diprivan) intravenous, Continuous Infusion: Per Instructions PRN, Starting on Jerica 03/09/24 at 0753, Anesthesia Intra-op Rate/Dose Change 03/09/2024 9:02 AM CDT 100 mcg/kg/min 42.06 mL/hr Rate/Dose Change 03/09/2024 8:23 AM CDT 100 mcg/kg/min 42. 06 mL/hr Rate/Dose Change 03/09/2024 8:09 AM CDT 125 mcg/kg/min 52. 575 mL/hr propofoL injection (Diprivan) intravenous, As needed, Starting on Jerica 03/09/24 at 0753, Anesthesia Intra-op Given 03/09/2024 7:53 AM CDT 130 mg rocuronium injection (Zemuron) intravenous, As needed, Starting on Jerica 03/09/24 at 0753, Anesthesia Intra-op Given 03/09/2024 10:41 AM CDT 10 mg Given 03/09/2024 10:19 AM CDT 10 mg Given 03/09/2024 10:06 AM CDT 10 mg sugammadex injection (Bridion) intravenous, As needed, Starting on Jerica 03/09/24 at 1109, Anesthesia Intra-op Given 03/09/2024 11:11 AM CDT 50 mg Given 03/09/2024 11:10 AM CDT 50 mg Given 03/09/2024 11:09 AM CDT 50 mg documented in this encounter Care Teams Rn Family Practice Relationship Specialty Start Date End Date Jana Hawikns MPAS, P.A.-C. [address] [facility] [place] [address] PCP - General Internal Medicine 10/22/22 documented as of this encounter
--- OUTSIDE RECORDS SUMMARY | 2024-05-15 02:35 | XMS_ITS | Encounter Summary ---
Author Organization [facility] Address [address] [place] [address] Care Team Providers Care Cattle Brander Name Role Phone Jana Hawkins P.A.-C. Primary Care Pro vider Reason for Visit * Reason Onset Date Comments Post-op Follow-up 03/13/2024 Encounter Details Date Type Department Care Team (Late st Contact Info) Description 03/13/2024 Clinical Communication Department of Obstetrics and Gynecology in [place], [place] [address] [place] [address] Crystal Whitman RLashaun., CRRN Post-op Follow-up Social History Tobacco Use Types Packs/Day Years Used Date Smoking Tobacco: Former Cigarettes 1 94 0 12/06/1972 - 12/25/2019 Passive Smoke Exposure: Never Smokeless Tobacco: Never Alcohol Use Standard Drinks/Week Comments Not Currently 0 (1 standard drink = 0.6 oz pur e alcohol) [facility] Utilities Answer Date Recorded In the [...] your living situation today? 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 [address] [place], [place] [address]AL[place] Gomez [phone] PCP - General Internal Medicine 10/22/22 documented as of this encounter
--- OUTSIDE RECORDS SUMMARY | 2024-05-15 02:35 | XMS_ITS | Encounter Summary ---
Author Organization [facility] Address [address] [place] [address] Care Team Providers Care Footwear Sales Coordinator Name Role Phone Jana Hawkins PBrendanABrendan-CBrendan Primary Care Pro vider Reason for Visit * Reason Comments Pre-op Exam * Outpatient (Routine) - Closed Specialty Diagnoses / Procedures Referred By Christina child Referred To Contact Internal Medicine / Community Internal Medicine Diagnoses Preoperative Exam Davy Sim M.D., M.S. [address] [place] [address] Phone: tel: fax: [facility] Referral ID Status Reason Start Date Expiration Date Visits Re quested Visits Authorized [id number] Closed 12/27/2023 06/27/2025 1 1 Encounter Details Date Type Department Care Team (Latest Contact Info) Description 02/21/2024 10:40 AM CDT Comprehensive Visit Department of Community Internal Medicine in [place], [place] [address] [place] [phone] Jana Hawkins MPAS, P.A.-C. [address] [place] [phone] Preoperative Exam Social History Tobacco Use Types Packs/Day Years Used Date Smoking Tobacco: Former Cigarettes 1 94 0 12/06/1972 - 12/25/2019 Passive Smoke Exposure: Never Smokeless Tobacco: Never Tobacco Cessation:Counseling Given: Not Answered Alcohol Use Standard Drinks/Week Comments Not Currently 0 (1 standard drink = 0.6 oz pur e alcohol) [facility] Utilities Answer Date Recorded In the past 12 months has e electric, gas, oil, or water company threatened to shut off services in your home? No 12/24/2023 PHQ-2 Answer Date Recorded PHQ-2 Score 0 [...] the money to buy more. Never true 12/24/19 24 Within the past 12 months, t he food you bought just didn't last and you didn't have money to get more. Never true 12/24/2023 PRAPARE - Transportation Answer Date Re corded In the past 12 months, has l ack of transportation kept you from medical appointments or from getting medications? No 12/05 In the past 12 months, has l ack of transportation kept you from meetings, work, or from getting things needed for daily living? No 12/24/2023 Nutrition Answer Date Recorded On average, how [...] your living situation today? 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 Gender Identity Female 10/14/2017 8:36 AM CDT Sexual Orientation Straight 10/14/2017 8: 36 AM CDT documented as of this encounter Last Filed Vital Signs Vital Sign Reading Time Taken Comments Blood Pressure 130/79 02/21/2024 10:39 AM CDT Pulse 79 02/21/2024 10:39 AM CDT Temperature 35.7 C (96.3 F) 02/21/2024 10:39 AM CDT Respiratory Rate 16 02/21/2024 10:39 AM CDT Oxygen Saturation - - Inhaled Oxygen Concentration - - Weight 70.1 kg (154 lb 8.7 oz) 02/21/2024 10:39 AM CDT Height 163 cm (5' 4.17) 02/21/2024 10:39 AM CDT Body Mass Index 26.38 02/21/2024 10:39 AM CDT documented in this encounter H&P Notes * Jana Hawkins MPAS, P.A.-C. - 02/21/2024 10:40 AM CDT PREANESTHETIC MEDICAL EVALUATION Procedure: Total Vaginal Hysterectomy with BSO, Anterior/Posterior Vaginal Repair, Colpopexy Vaginal, Repair Enterocele. Date of Surgery: 03/09/2024 Requesting Provider: Dr. Sim SUBJECTIVE HISTORY OF PRESENT ILLNESS Camilla Montalvo is a 73 y.o. female seen in consultation for a preanesthetic medical evaluation. She receives her primary care through an OBGYN provider in [place]. She has a PMHx of schatzki ringand hiatal hernia for which she takes Omeprazole 20 mg BID. She has a personal history of breast cancer. She is up to date on screening mammogram (completed December 2023 at [place]). She regularly follows with her PCP in [place]. No history of liver disease, kidney disease, obstructive sleep apnea, seizure disorder, aortic stenosis, or venous thromboembolism. Patient currently denies Shortness of breath, Wheezing or coughing, Difficulty breathing when lyingflat, Waking up at night feeling short of breath, Edema - abdominal bloating, Edema - lower extremities, and Fatigue/Altered activity tolerance Procedure cardiac risk: Intermediate Risk (cardiac risk <5%): CEA, head/neck surgery, intraabdominal or intrathoracic surgery, orthopedic surgery, prostate surgery Functional status: Functional Class II: Able to perform 5-7 METS (walk > 4 blocks or climb over 2 flights without cardiac or pulmonary Sx) RCRI estimated risk of tarik-operative cardiac , non-fatal TX, or non-fatal cardiac arrest: None RCRI risk: 0 Predictors (0.4% risk of major cardiac event) No history of hypertension. Blood pressure at home this morning was 117/74 mmHg. She has some concerns with electrolyte levels today. She reports a history of hyponatremia - specifically an ER visit in [place] in November 2023 the day after her most recently colonoscopy with a sodium level of 128. She had follow up with her primary care provider in [place] after this hospitalization. Social history is significant for former smoker - 47 pack year history - quit in 2019. She does notdrink alcohol. Denies drug use. PREOPERATIVE CONSIDERATIONS None PAST MEDICAL HISTORY Past Medical History: Diagnosis Date Cancer Breast Personal History Invasive ductal carcinoma, S/P Lumpectomy and 3 weeks radiation Gastroesophageal Reflux Disease Migraine Headache Polyp Colon Adenomatous PAST SURGICAL HISTORY Past Surgical History: Procedure Laterality Date APPENDECTOMY 2018 BREAST LUMPECTOMY TUBAL LIGATION OBJECTIVE PHYSICAL EXAM Vitals: BP 130/79 (BP Location: Left arm, Patient Position: Sitting, Cuff Size: Large) Pulse 79 Temp (!) 35.7 ??C (Temporal) Resp 16 Ht 163 cm Wt 70.1 kg BMI 26.38 kg/m?? Constitutional General: She is not in acute distress. Appearance: Normal appearance. HENT Head: Normocephalic and atraumatic. Right Ear: Tympanic membrane normal. Left Ear: Tympanic membrane normal. Mouth/Throat: Mouth: Mucous membranes are moist. Pharynx: Oropharynx is clear. No oropharyngeal exudate or posterior oropharyngeal erythema. Eyes Extraocular Movements: Extraocular movements intact. Conjunctiva/sclera: Conjunctivae normal. Pupils: Pupils are equal, round, and reactive to light. Neck Vascular: No carotid bruit. Cardiovascular Rate and Rhythm: Normal rate and regular rhythm. Heart sounds: Normal heart sounds. No murmur heard. No gallop. Pulmonary Effort: Pulmonary effort is normal. No respiratory distress. Breath sounds: Normal breath sounds. No wheezing, rhonchi or rales. Abdominal General: Bowel sounds are normal. There is no distension. Palpations: Abdomen is soft. Tenderness: There is no abdominal tenderness. There is no guarding or rebound. Musculoskeletal General: No tenderness or deformity. Normal range of motion. Cervical back: Neck supple. Right lower leg: No edema. Left lower leg: No edema. Skin General: Skin is warm and dry. Neurological Mental Status: She is alert and oriented to person, place, and time. Motor: No weakness. Deep Tendon Reflexes: Reflexes normal. Psychiatric Mood and Affect: Mood normal. Behavior: Behavior normal. Thought Content: Thought content normal. LABORATORY STUDIES/EKG/Radiology: Lab Results Component Value Date WBC 8.1 12/27/2023 HGB 13.6 12/27/2023 HCT 39.9 12/27/2023 MCV 90.5 12/27/2023 PLT 401 (H) 12/27/2023 Lab Results Component Value Date NA 130 (L) 12/27/2023 Lab Results Component Value Date KPLASMA 4.8 10/22/2022 Lab Results Component Value Date CREATININE 0.63 12/27/2023 Lab Results Component Value Date GLUCOSE 104 12/27/2023 ASSESSMENT / PLAN ASSESSMENT / PLAN #1 Preanesthetic Medical Exam Camilla Montalvo is considered a low risk patient undergoing a moderate risk procedure. Her physicalactivity is currently above 4 mets and she currently declines any issues. She had labs drawn recently by surgical team for preoperative purposes. No medical contraindication to anticipated surgery. Pr oceed with upcoming surgery as planned. #2 Personal History of Breast Cancer #3 Hyponatremia #4 Osteopenia #5 Hiatal Hernia She will continue to follow with her primary care provider in [place] for management of chronic medical conditions. #6 Lung Cancer Screening She is candidate for our [facility] Lung Cancer Screening Program. She may consider inquiring withher primary care team in [place] if they offer a similar service. Otherwise, if she decides to enroll in our program I would be happy to place a consult at any time. JANETH Mendosa, P.A.-C. documented in this encounter Plan of Treatment Not on file documented as of this encounter Visit Diagnoses Diagnosis Preoperative Exam documented in this encounter Care Teams Footwear Sales Coordinator Relationship Specialty Start Date End Date Jana Hawkins MPAS, P.A.-C. [address] [facility] [place] [phone] PCP - General Internal Medicine 10/22/22 documented as of this encounter
--- OUTSIDE RECORDS SUMMARY | 2024-05-15 02:35 | XMS_ITS | Encounter Summary ---
Author Organization [facility] Address [address] [place] [phone] Care Team Providers Care Project Consultant Name Role Phone Jana Hawkins P.A.-C. Primary Care Pro vider Reason for Visit * Reason Onset Date Comments Post-op call 03/13/2024 Encounter Details Date Type Department Care Team (Latest Contact Info) Description 03/13/2024 Clinical Communication Department of Obstetrics and Gynecology, Division of Urogynecology in [place], [place] [address] [place] [phone] Omar Meraz, RCleve [address] [place] [phone] Post-op call Social History Tobacco Use Types Packs/Day Years Used Date Smoking Tobacco: Former Cigarettes 1 94 0 12/06/1972 - 12/25/2019 Passive Smoke Exposure: Never Smokeless Tobacco: Never Alcohol Use Standard Drinks/Week Comments Not Currently 0 (1 standard drink = 0.6 oz pur e alcohol) [facility] Utilities Answer Date Recorded In the past 12 months has [employer] electric, gas, oil, or water company threatened [...] your living situation today? 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 - 03/13/2024 11:37 AM CDT Post-Op Phone call 03/09/2024: HYSTERECTOMY TOTAL VAGINAL. Laterality N/A SALPINGO-OOPHORECTOMY. Laterality Bilateral REPAIR ENTEROCELE. Laterality N/A COLPOPEXY VAGINAL. Laterality N/A REPAIR ANTERIOR, VAGINAL. Laterality N/A REPAIR POSTERIOR VAGINA. Laterality N/A CYSTOSCOPY RIGID. Laterality N/A Providers Provider Role Davy Sim M.D., M.S. Primary Chante Lawson M.D. Oyster Grower Chante Tirado M.D. Other Filter Cloth Maker Pain: Patient rates pain 5 on a scale 0-10. 0 being no pain and 10 being worst pain imaginable. Patient states pain tolerable. Camilla is very discouraged and upset with her progress. She notes that she feels like s.... She is currently alternating Tylenol and Advil on a schedule. We reviewed the dosing of each of these medications. I have encouraged her to add in heat and ice therapy. We discussed the surgery itself and how this can be contributing to her pain. Diet: Patient is able to tolerate fluids and normal diet. Bowel Movement: Patient is able to pass gas and has had a bowel movement. Camilla and I reviewed thedosing for Senokot-S. I have encouraged her to increase this dose to two pills two times per day. Voiding: Patient is able to empty bladder by self-intermittent catheterization. Camilla is voiding minimal amounts of urine on her own. She is self-catheterizing every three hours for 200-300 cc of urine. Camilla is very upset that she is unable to void on her own. We reviewed that her inability to void is most likely due to post-operative pain and swelling. Once each of these items improve, she will be able to urinate more. Camilla states that her insurance will not pay for her catheters. She is upset by this. I have informed Camilla that I have not heard of this before. We reviewed that Dr. Sim would be happy to sendher a new prescription for catheters. Camilla states that she does not need them yet, as her husbandpicked up another box this morning. Vaginal discharge: spotty External Skin Incision: NA External Skin Incision Site Care: Not applicable. Activity: Patient is following post-operative activity restrictions. Camilla and I reviewed the post-operative restrictions in detail. I have encouraged her to rest. Follow-up appointment scheduled: Yes Patient Education: Reinforced post-procedure/discharge teaching. Reviewed signs and symptoms of surgical site infection. Instructed patient to check daily for warmth, increased tenderness or redness around the surgical site; cloudy drainage from the surgical site; and chills/fever of 100.4 degrees Fahrenheit (38 degrees Celsius) or greater. If experiencing any of these symptoms, patient should contact their health care provider immediately. I will plan to contact Camilla tomorrow for an update. I have asked her to contact our office prior to this with questions or concerns. Omar Meraz R.N. . documented in this encounter Plan of Treatment Not on file documented as of this encounter Visit Diagnoses Not on filedocumented in this encounter Care Teams Project Consultant Relationship Specialty Start Date End Date Jana Hawkins MPAS, P.A.-C. [address] [place] [phone] PCP - General Internal Medicine 10/22/22 documented as of this encounter
--- OUTSIDE RECORDS SUMMARY | 2024-05-15 02:35 | XMS_ITS | Encounter Summary ---
Author Organization [facility] Address [address] [place] [id number] Care Team Providers Care Pipe Line Gauger Name Role Phone Jana Hawkins P.A.-C. Primary Care Pro vider Encounter Details Date Type Department Care Team (Late st Contact Info) Description 03/17/2024 Orders Only Department of Obstetrics and Gynecology, Division of Urogynecology in [place], [place] [address] [place] [phone] Lexie Rosas M.B.B.S. [address] [place] [phone] Social History Tobacco Use Types Packs/Day Years Used Date Smoking Tobacco: Former Cigarettes 1 94 0 12/06/1972 - 12/25/2019 Passive Smoke Exposure: Never Smokeless Tobacco: Never Alcohol Use Standard Drinks/Week Comments Not Currently 0 (1 standard drink = 0.6 oz pur e alcohol) [facility] Utilities Answer Date Recorded In the [...] your living situation today? I have a 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 [address] [place] [address] [place] [phone] PCP - General Internal Medicine 10/22/22 documented as of this encounter
--- OUTSIDE RECORDS SUMMARY | 2024-05-15 02:35 | XMS_ITS | Encounter Summary ---
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 Primary [...] Expiration Date Visits Re quested Visits Authorized [id number] 1 1 Encounter Details Date Type Department Care Team ([facility] Contact Info) Description 03/09/2024 7:25 AM CDT - 03/09/2024 11:32 AM CDT Surgery [facility] OR [address] [place] [address] Davy Sim M.D., M.S. [address] [place] [address] HYSTERECTOMY TOTAL VAGINAL. Social History Tobacco Use Types Packs/Day Years Used Date Smoking Tobacco: Former Cigarettes 1 94 0 12/06/1972 - 12/25/2019 Passive Smoke Exposure: Never Smokeless Tobacco: Never Alcohol Use Standard Drinks/Week Comments Not Currently 0 (1 standard drink = 0.6 oz pur e alcohol) [facility] Utilities Answer Date Recorded In the past 12 months has th e [employer], [employer], oil, or water [employer] threatened to shut off services in your [...] living situation today? 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 Gender Identity Female 10/14/2017 8:36 AM CDT Sexual Orientation Straight 10/14/2017 8: 36 AM CDT documented as of this encounter Last Filed Vital Signs Vital Sign Reading Time Taken Comments Blood Pressure 127/70 03/09/2024 7:00 AM CDT Pulse 72 03/09/2024 7:00 AM CDT Temperature 37 C (98.6 F) 03/09/2024 7:00 AM CDT Respiratory Rate 13 03/09/2024 7:00 AM CDT Oxygen Saturation 98% 03/09/2024 7:00 AM CDT Inhaled Oxygen Concentration - - Weight 70.1 kg (154 lb 8.7 oz) 03/09/2024 7:00 A M CDT Height 163 cm (5' 4.17) 03/09/2024 7:00 AM CDT Body Mass Index 26.38 03/09/2024 7:00 AM CDT documented in this encounter Discharge Summaries * Anupam Garcia M.D. - 03/11/2024 8:47 AM CDT DISCHARGE SUMMARY Admission Date: 03/09/2024 Discharge Date: 03/11/2024 Discharge Provider: Davy Sim M.D., M* Responsible Author(s): Anupam Garcia M.D. PRIMARY DIAGNOSIS Pelvic organ prolapse ADDITIONAL DIAGNOSES GERD, prediabetes BRIEF HOSPITAL COURSE Surgeon: Davy Sim M.D., M.S. Chante Lawson M.D. Aase, Danielle A, M.D. PROCEDURE DATE: 03/09/2024 TYPE OF PROCEDURE(S): HYSTERECTOMY TOTAL VAGINAL. (N/A) SALPINGO-OOPHORECTOMY. (Bilateral) REPAIR ENTEROCELE. (N/A) COLPOPEXY VAGINAL. (N/A) REPAIR ANTERIOR, VAGINAL. (N/A) REPAIR POSTERIOR VAGINA. (N/A) CYSTOSCOPY RIGID. (N/A) PROCEDURAL COMPLICATIONS: None POSTOPERATIVE COURSE: On postoperative day 1, the patient had significant abdominal and pelvic discomfort. She failed hervoiding trial. Rectal Valium suppositories and p.o. Flexeril were added to her pain regimen. She was taught self catheterization. A repeat CBC was ordered and was reassuring. By postoperative day 2, her pain was significantly improved. She was deemed stable for discharge. PATHOLOGY: Recent Results (from the past 168 hour(s)) Surgical Pathology, Frozen Lab Status: None Result Value Report electronically signed by Nahun Gonzales M.D., Ph.D. I verify that I have examined all relevant slides/materials for the specimen(s) and rendered or confirmed the diagnosis. Gross Description A. Received fresh labeled uterus and cervix is a 150 g uterus with cervix, without attached bilateral fallopian tubes and ovaries. The uterine serosa is smooth. The endometrium has a diffusely flat and multi-cystic surface. The myometrial thickness is 2.5 cm. There are 10 intramural and subserosal leiomyomas ranging from 0.6 cm to 3 cm. Emd Teacher tissue submitted for permanent sections. Grossed by nAais Regan M.S., DEANDRA([facility]). B. Received fresh labeled left fallopian tube and ovary is a 5.9 x 0.6 cm fallopian tube with an attached 2.1 x 0.9 x 0.4 cm ovary. There are multiple paratubal and adnexal cysts, ranging from 0.2 cm to 0.8 cm in greatest dimension. The fallopian tube is otherwise unremarkable. The ovary has a solid cut surface. Emd Teacher tissue submitted for permanent sections. Grossed by Margoth Zarco M.D.-Pathology Resident and Anais Regan M.S., DEANDRA([facility]). C. Received fresh labeled right fallopian tube and ovary is a 0.6 g, 1.8 x 1.1 x 0.6 cm ovary with 6.4 x 0.8 cm fallopian tube. The ovary has a smooth outer surface and solid cut surface. The fallopian tube has multiple paratubal cysts ranging from 0.1 cm to 0.6 cm. Emd Teacher tissue submitted for permanent sections. Grossed by Darian KentHKamla, DEANDRA([facility]). Block Summary A Uterus and cervix A1 [...] C2 Fimbria C3 Fallopian tube cross sections Interpretation FINAL DIAGNOSIS A. Uterus, hysterectomy: Unremarkable cervix. Inactive endometrium with endometrial polyp. Myometrium with adenomyosis and leiomyomata. B. Ovary and fallopian tube, left, salpingo-oophorectomy: Unremarkable ovary. Fallopian tube with paratubal cysts. C. Ovary and fallopian tube, right, salpingo-oophorectomy: Unremarkable ovary. Fallopian tube with paratubal cysts. A portion of the testing process was performed at [facility] site [id number]. Digital imaging was used in the diagnostic assessment of this case. *Note: Due to a large number of results and/or encounters for the requested time period, some results have not been displayed. A complete set of results can be found in Results Review. CYTOLOGY: Order Name Source Comment Collection Info Order Time SURGICAL PATHOLOGY, FROZEN LAB Uterus Collected By: Davy Sim M.D., M.S. 03/09/2024 8:44 AM Should the communication of this result to the patient's portal be released immediately? Release Immediately DISMISSAL LABS: Hemoglobin: Lab Results Component Value Date HGB 12.4 03/10/2024 Creatinine: Lab Results Component Value Date CREATININE 0.64 03/10/2024 CONDITION AT DISCHARGE Stable DISCHARGE DISPOSITION Home/Self Care FOLLOW-UP RECOMMENDATIONS A postoperative appointment will be arranged with your surgical team at the [address] You will be contacted with your appointment details. Any questions regarding your appointment should be directed to the ad operations coordinator at . CONTACT INFORMATION Instructions and Contact Information for Concerns, Issues, or Problems -If you experience a medical emergency, please call your local emergency response telephone number.For other questions, call the [facility] 24-hr telephone number: . Ask to be connected to the following service: Gynecologic Surgery - Davy Sim M.D., M* If you experience any of the following symptoms contact your surgical team: - Fever greater than 101 Fahrenheit - Abdominal pain that persists for more than 4 hours or any severe abdominal pain - Vomiting, inability to tolerate oral intake for more than 4 hours - Inability to empty your bladder or suprapubic catheter dysfunction - Constipation that is not relieved by dismissal or over the counter medications (see below) - Incision redness, especially if associated with pus or increasing tenderness HOW TO CONTACT YOUR SURGICAL TEAM: DURING BUSINESS HOURS: From 8 a.m. to 5 p.m. Wednesday through Wednesday call AFTER HOURS, WEEKENDS OR HOLIDAYS: For urgent questions and/or concerns, call the [facility] orange peel operator at and request to speak to the physician bromination equipment operator for your surgical team. NOTE TO CAREGIVERS - If the patient appears very ill or is not easy to arouse take her directly to the nearest emergency room or call [phone] for emergency assistance. Do not wait to reach your surgical team. We will be happy to work with the emergency team nearest to you! INFORMATION FOR CONTINUING CARE POSTOPERATIVE RESTRICTIONS/INSTRUCTIONS: LIFTING: No lifting greater than 15 pounds for six weeks. PELVIC REST: No douching, tampons, or intercourse for six weeks. If prescribed, vaginal estrogen cream may be used during the postoperative period. DRIVING: No driving while on narcotics. Driving may be resumed initially with a competent passengerone to two weeks after surgery if no longer taking narcotics. EXERCISE: For six weeks your exercise should be limited to walking. You may walk as far as you wish, as long as you increase your level of exertion gradually and avoid slippery surfaces. You may climb stairs as needed to get around, but should not use stair climbing for exercise. VAGINAL DISCHARGE: You may develop a vaginal discharge and intermittent vaginal spotting after surgery and up to 6 weeks postoperatively. The discharge may have an odor and may change in color but itis normal. This is due to dissolving stitches. Contact your surgical team if you develop vaginal orvulvar irritation along with a discharge. Also contact your surgical team if you have vaginal discharge that smells like urine or stool. WOUND CARE: If you have a band-aid or bandage on your wound, you may remove it the day after dismissal. You may wash the wound with mild soap and water. You may shower at any time but should avoid immersing any abdominal incisions in water for at least two weeks after surgery or until the wound is completely healed. If given, please shower with Hibiclens soap until bottle is completely finished. Keep your wound clean and dry. You should observe your incision for signs of infection which includeredness, warmth, drainage or fever. CONSTIPATION REMEDIES: Patients are often constipated after surgery or with use of oral narcotic medicine. You should continue to take the stool softener, Senokot-S during the next six weeks, and consume adequate amounts of water. If you have not had a bowel movement for 3 days after dismissal, or are uncomfortable and unable to pass stool, please try one or all of the following measures: Milk of Magnesia - 30 cc by mouth every 12 hours 2. Dulcolax suppository - One suppository per rectum every 4-6 hours 3. Metamucil, Fibercon or other bulk former - use as directed 4. Fleets Enema 5. Prunes or Prune juice If you continue to have constipation after trying the above remedies, you should contact your surgical team using the contact information listed above. PAIN MEDICATIONS: Take your pain medications as instructed. It is best to take pain medications before your pain becomes severe. This will allow you to take less medication yet have better pain relief. For the first 2or 3 days it may be helpful to take your pain medications on a regular schedule (e.g. every 4 to 6 hours). This will help you to keep your pain under better control. You should then begin to take fewer medications each day until you no longer need them. Do not take pain medication on an empty stomach. This may lead to nausea and vomiting. MEDICATION DISPOSAL (Information adapted from the FDA.gov website on Safe Disposal of Medicines) Some medicines come with disposal instructions. If you received disposal instructions for a medicine, you should dispose of that medicine as directed. Proper disposal of medication keeps others safe by ensuring these medicines are not used again or accidentally ingested and avoid causing harm. Almost all medicines can be safely disposed of by using medicine take-back programs or using U.S. Drug Enforcement Agency ([place])-authorized collectors. Otherwise, the following opioid medications can be flushed down the toilet when the medication is no longer needed: Oxycodone tablets, Hydromorphone tablets, Percocet tablets, Morphine tablets, Oxycontin tablets. If you want to locate the nearest [employer]-authorized seed collector to you, this can be found at: https://apps.deadiversion.[employer].gov/pubdispsearch/spring/main SELF-CATHETERIZATION INSTRUCTIONS 1. Attempt to void urine when you have the urge to void, or every four hours if you do not feel theurge to void. 2. Every time you void urine - measure the voided volume. 3. Then perform self-catheterization immediately after voiding and measure the residual catheterized urine volume. 4. Record the time and both voided and catheterized volumes. 5. When your post-void residual urine volume is less than 150mL for three consecutive voids, you may stop catheterization an stop measuring urine. 6. In this postoperative period, if you ever feel the sensation that you have not completely emptied your bladder or are unable to urinate when you feel the need, we encourage you to self-catheterizeand measure the residual volume of urine. If you currently smoke cigarettes, cigars, e-cigarettes, or pipes; chew tobacco; or have done so inthe past 12 months, it is important to quit. Talk with your physician about different ways to stop smoking. For additional information about smoking cessation, go to: http://www.[facility].org/stop-smoking or call 604-743-3596. Cosigned by Jaye Siddiqi M.D. at 03/11/2024 9:11 AM CDT Associated attestation - Jaye Siddiqi M.D. - 03/11/2024 9:11 AM CDT I saw the patient on the day of discharge with Dr. Riggins, Motors And Controls Tester Onc java developer consultant, and agree with the discharge plans and disposition. documented in this encounter Discharge Instructions * Discharge Instructions* Hoang Manzanares - 03/09/2024 2:50 PM CDT You were discharged from the [facility] Gynecologic Surgery - [place] Service. Please identify this service name if you call with questions after hospitalization. * Attachments The following attachments cannot be sent through Care Everywhere. * Acetaminophen (By mouth) (Cook Islander) * Ibuprofen (By mouth) ([place]er) * Oxycodone, Rapid Release (By mouth) ([place]) * Laxative, Stimulant Combination (By mouth) ([place] Islander) documented in this encounter Medications at Time of Discharge [...] Dissolve 4 mg in the mouth. 11/29/2023 sennosides-docusate sodium (Senokot-S) 8.6-50 mg per tablet Take 1 tablet by mouth at bedtime as needed for constipation. 03/09/2024 oxyCODONE (Roxicodone) 5 mg immediate release tabletIndications:A cute Pain Take 1 tablet (5 mg total) by mouth every 4 (four) hours as needed for pain (not controlled with ibuprofen and tylenol) Indication: Acute Pain. 10 tablet 03/11/2024 1:41 PM CDT 03/09/2024 4 documented as of this encounter Progress Notes * Anupam Garcia M.D. - 03/11/2024 6:24 AM CDT SUBJECTIVE 73 y.o. who is currently 2 Days Post-Op HYSTERECTOMY TOTAL VAGINAL. (N/A) SALPINGO-OOPHORECTOMY. (Bilateral) REPAIR ENTEROCELE. (N/A) COLPOPEXY VAGINAL. (N/A) REPAIR ANTERIOR, VAGINAL. (N/A) REPAIR POSTERIOR VAGINA. (N/A) CYSTOSCOPY RIGID. (N/A) Ms. Montalvo is doing well this morning. She denies any acute concerns. She reports that pain is overall significantly improved. She it is able to tolerate oral intake and ambulation. She is comfortablegoing home today. She continues to have urinary retention with a 2 episodes of straight intermittent catheterization last night. OBJECTIVE Vital signs reviewed. Temp (24hrs), Av.8 ??C, Min:36.5 ??C, Max:37.2 ??C Weight change: I/O 03/09 P.O. 600 950 Other 350 Maintenance IV 1675 Total Intake(mL/kg) 2275 (32.5) 1300 (18.5) Urine (mL/kg/hr) 2430 (1.4) 3115 (1.9) Blood 300 Total Output 2730 3115 Net -882 -5051 PHYSICAL EXAM Physical exam: General appearance: alert, appears stated age and cooperative Abdomen: soft, appropriately tender, non-distended : Vaginal packing and Sanford catheter previously removed. Lungs: normal work of breathing Heart: regular rate Extremities: no lower extremity edema, SCDs in place Skin: no rashes or lesions Psych: appropriate Neurologic: Grossly normal LABORATORY RESULTS Hemoglobin Date Value Ref Range Status 03/10/2024 12.4 11.6 - 15.0 g/dL Final Creatinine Date Value Ref Range Status 03/10/2024 0.64 0.59 - 1.04 mg/dL Final 10/22/2022 0.67 0.59 - 1.04 mg/dL Final Leukocytes Date Value Ref Range Status 03/10/2024 10.2 (H) 3.4 - 9.6 x10(9)/L Final No results found for this visit on 03/09/24 (from the past 72 hour(s)). IMAGING RESULTS, LAST 1 DAY DX Abdomen 1 View Result Date: 03/09/2024 Impression: Negative for postoperative purposes. ASSESSMENT / PLAN Medical Problems Diagnosis List * (Principal) Cystocele Rectocele With Uterine Prolapse Cancer Breast Personal History Gastroesophageal Reflux Disease Without Esophagitis Overview Signed 11/15/2017 3:26 PM by Nayely Matta RBrendanN. Overview: [facility] - 06/22 Cystocele Overview Signed 11/15/2017 3:26 PM by Nayely Matta, R.N. Overview: Pessary from [facility] with support Rectocele Polyp Colon Overview Signed 11/15/2017 3:26 PM by Nayely Matta, R.N. Overview: Colonoscopy 09/2009 polyps repeat in 5 years Colonoscopy 10/2013 hyperplastic polyp repeat in 5 years Hyponatremia Malignant Neoplasm Of Unspecified Site Of Laterality Unknown Female Breast (HCC) Osteopenia Overview Signed 02/21/2024 11:20 AM by Jana Hawkins MPAS, P.A.-C. by DEXA here -2.2 08/22, stable/improved 11/24, improved by DEXA 11/26 (followed by oncology) Other Specified Anxiety Disorders Overview Signed 02/21/2024 11:20 AM by Jana Hawkins MPAS, P.A.-C. related to breast cancer diagnosis 08/22, started on sertraline then Overweight Body Mass Index 25-29.9 Adult Polyp Colon Adenomatous Overview Signed 02/21/2024 11:20 AM by Jana Hawkins MPAS, P.A.-C. outside with Dr. Mejia, 08/18, Colonoscopy here clear 11/23 (due again 5Y), 1 tubular adenoma removedby colonoscopy here 11/28, repeat due in 5Y Postmenopausal Atrophic Vaginitis Presence Of External Hearing Aid Overview Signed 02/21/2024 11:20 AM by Jana Hawkins MPAS, P.A.-C. Has had hearing impairment since childhood, unknown cause Prolapse Genital Female Prolapse Uterovaginal Complete Overview Signed 02/21/2024 11:20 AM by Jana Hawkins MPAS, P.A.-C. Grade 4 cystocele, grade 2-3 uterine prolapse, grade 2-3 rectocele Stress Incontinence Female Male Hernia Hiatal Status Post: HYSTERECTOMY TOTAL VAGINAL. (N/A) SALPINGO-OOPHORECTOMY. (Bilateral) REPAIR ENTEROCELE. (N/A) COLPOPEXY VAGINAL. (N/A) REPAIR ANTERIOR, VAGINAL. (N/A) REPAIR POSTERIOR VAGINA. (N/A) CYSTOSCOPY RIGID. (N/A) UroGyn: Follow up final pathology. We reviewed postoperative findings and instructions, including no lifting >10lbs and no intercourse or anything per vagina for at least 6 weeks or until cleared by her primary MD. She will f/u with Dr. Sim in 6 weeks. Pain: Continue PO oxycodone and NSAIDs + Tylenol; IV Dilaudid ordered for breakthrough. Pain well-controlled FEN/GI: Continue to ADAT. Antiemetics prn. Continue bowel regimen with Senna-S and escalate as needed. Stable hyponatremia on previous BMP CV: Stable. Resp: No active issues. : UOP is adequate. Previously failed void trial and continues to have urinary retention. Patient will have history intermittent catheterization teaching this morning prior to discharge. Heme: No s/sx of postoperative anemia. Most recent CBC reassuring. Ppx: IS, SCDs, OOB Discharge plan: discharge to home today Consults: none Patient seen and evaluated with Dr. Siddiqi, gynecology fellow and Dr. Riggins, gynecology java developer consultant. Anupam Garcia M.D. Obstetrics & Gynecology, PGY-2 Cosigned by Jaye Siddiqi M.D. at 03/11/2024 9:12 AM CDT Associated attestation - Jaye Siddiqi M.D. - 03/11/2024 9:12 AM CDT I saw and evaluated the patient, participating in the drew portions of the service. I reviewed the resident/fellow???s note. I agree with the resident/fellow???s findings and plan. Pain significantly improved from yesterday. She has been ambulating and tolerating regular diet. CBC stable x 2 yesterday. Patient feels comfortable with discharge. Reviewed postoperative restrictions and SIC teaching. Follow-up scheduled with Dr. Sim. * Chante Lawson M.D. - 03/10/2024 8:01 AM CDT SUBJECTIVE 73 y.o. who is currently 1 Day Post-Op HYSTERECTOMY TOTAL VAGINAL. (N/A) SALPINGO-OOPHORECTOMY. (Bilateral) REPAIR ENTEROCELE. (N/A) COLPOPEXY VAGINAL. (N/A) REPAIR ANTERIOR, VAGINAL. (N/A) REPAIR POSTERIOR VAGINA. (N/A) CYSTOSCOPY RIGID. (N/A) Ms. Montalvo is doing ok this morning. Has been struggling with pain control. States her pain feels intense in her bottom, mostly pressure. Has not had much of an appetite but denies n/v. Attempted ambulation once last night and had an episode of dizziness. OBJECTIVE Vital signs reviewed. Temp (24hrs), Av.6 ??C, Min:36.4 ??C, Max:37 ??C Weight change: I/O 03/08 P.O. 600 Maintenance IV 1675 Total Intake(mL/kg) 2275 (32.5) Urine (mL/kg/hr) 2430 (1.4) Blood 300 Total Output 2730 Net -455 PHYSICAL EXAM Physical exam: General appearance: alert, appears stated age and cooperative Abdomen: soft, appropriately tender, non-distended : Scant VB on packing which was removed on my exam, Sanofrd remains in place with clear/yellow urine Lungs: normal work of breathing Heart: regular rate and rhythm Extremities: no lower extremity edema, SCDs in place Skin: no rashes or lesions Psych: appropriate Neurologic: Grossly normal LABORATORY RESULTS Hemoglobin Date Value Ref Range Status 03/10/2024 13.1 11.6 - 15.0 g/dL Final Creatinine Date Value Ref Range Status 03/10/2024 0.64 0.59 - 1.04 mg/dL Final 10/22/2022 0.67 0.59 - 1.04 mg/dL Final Leukocytes Date Value Ref Range Status 03/10/2024 12.4 (H) 3.4 - 9.6 x10(9)/L Final No results found for this visit on 03/09/24 (from the past 72 hour(s)). IMAGING RESULTS, LAST 1 DAY DX Abdomen 1 View Result Date: 03/09/2024 Impression: Negative for postoperative purposes. ASSESSMENT / PLAN Medical Problems Diagnosis List * (Principal) Cystocele Rectocele With Uterine Prolapse Cancer Breast Personal History Gastroesophageal Reflux Disease Without Esophagitis Overview Signed 11/15/2017 3:26 PM by Nayely Matta RBrendanN. Overview: [facility] - 06/22 Cystocele Overview Signed 11/15/2017 3:26 PM by Nayely Matta, R.N. Overview: Pessary from [facility] with support Rectocele Polyp Colon Overview Signed 11/15/2017 3:26 PM by Nayely Matta, R.N. Overview: Colonoscopy 09/2009 polyps repeat in 5 years Colonoscopy 10/2013 hyperplastic polyp repeat in 5 years Hyponatremia Malignant Neoplasm Of Unspecified Site Of Laterality Unknown Female Breast (HCC) Osteopenia Overview Signed 02/21/2024 11:20 AM by Jana Hawkins MPAS, P.A.-C. by DEXA here -2.2 08/22, stable/improved 11/24, improved by DEXA 11/26 (followed by oncology) Other Specified Anxiety Disorders Overview Signed 02/21/2024 11:20 AM by Jana Hawkins MPAS, P.A.-C. related to breast cancer diagnosis 08/22, started on sertraline then Overweight Body Mass Index 25-29.9 Adult Polyp Colon Adenomatous Overview Signed 02/21/2024 11:20 AM by Jana Hawkins MPAS, P.A.-C. outside with Dr. Mejia, 08/18, Colonoscopy here clear 11/23 (due again 5Y), 1 tubular adenoma removedby colonoscopy here 11/28, repeat due in 5Y Postmenopausal Atrophic Vaginitis Presence Of External Hearing Aid Overview Signed 02/21/2024 11:20 AM by Jana Hawkins MPAS, P.A.-C. Has had hearing impairment since childhood, unknown cause Prolapse Genital Female Prolapse Uterovaginal Complete Overview Signed 02/21/2024 11:20 AM by Jana Hawkins MPAS, P.A.-C. Grade 4 cystocele, grade 2-3 uterine prolapse, grade 2-3 rectocele Stress Incontinence Female Male Hernia Hiatal Status Post: HYSTERECTOMY TOTAL VAGINAL. (N/A) SALPINGO-OOPHORECTOMY. (Bilateral) REPAIR ENTEROCELE. (N/A) COLPOPEXY VAGINAL. (N/A) REPAIR ANTERIOR, VAGINAL. (N/A) REPAIR POSTERIOR VAGINA. (N/A) CYSTOSCOPY RIGID. (N/A) UroGyn: Follow up final pathology. We reviewed postoperative findings and instructions, including no lifting >10lbs and no intercourse or anything per vagina for at least 6 weeks or until cleared by her primary MD. She will f/u with Dr. Sim in 6 weeks. Pain: Continue PO oxycodone and NSAIDs + Tylenol; IV Dilaudid ordered for breakthrough. FEN/GI: Continue to ADAT. Antiemetics prn. Continue bowel regimen with Senna-S and escalate as needed. Stable hyponatremia on AM BMP. CV: Stable. Resp: No active issues. : Vaginal packing removed. UOP is adequate. Void trial: pending this AM. Heme: No s/sx of postoperative anemia. AM CBC reassuring. Ppx: IS, SCDs, OOB Discharge plan: discharge to home today pending improvement in pain control, ambulation and voidingtrial. Consults: none Chante Lawson MD Urogynecology Fellow, PGY-7 Pager #[phone] 03/10/2024 8:05 AM CDT * Vin Ku M.D. - 03/09/2024 11:26 PM CDT INTERVAL BRIEF PROGRESS NOTE Patient seen post-op. Overall, doing well. Pain is improved compared to the day, but she shared that it was creeping up, and wanted to stay ahead of the pain. She also endorsed heartburn for which I ordered TUMS. Pt had one ep of dizziness after waking up, and some lightheadedness while ambulating. Although hersx are very likely 2/2 to anesthesia after surgery, particularly in the setting of minimal EBL of 150, I ordered CBC, BMP for the AM. Of note, patient has Hx of chronic hyponatremia. Her last sodium was 130 on 12/27/23. Vin Ku MD MAC DEVELOPER Resident * Hay Marks - 03/09/2024 7:00 AM CDT [facility] Spiritual Care Progress Note Patient: Camilla Montalvo Age:73 y.o. Location: [facility] Reason(s) for encounter: Spiritual support as part of the interdisciplinary care team. Spiritual Assessment Gnosticism Identification / Spiritual Practices: [employer]. Spiritual Needs and/or Concerns: Mrs. Montalvo requested prayer before surgery. Shared prayer. Spiritual Care interventions: Introduced the role as member of the interdisciplinary care team with the aim of establishing spiritual therapeutic rapport with patient and/or family Facilitated congregation/spiritual practices (prayer, blessing, sacred texts, congregation item) with theaim to reinforce patient's spiritual wellness and connection with source of sacredness. Spiritual Care outcomes: Patient/family was appreciative of spiritual care support. Spiritual Care Plan / Recommendations: Will remain available for spiritual care as needed or requested. Chaplains can be contacted by paging [phone] ([place]) or [phone] (Episcopal). documented in this encounter H&P Notes * Chante Lawson M.D. - 03/09/2024 7:22 AM CDT INTERVAL HISTORY AND PHYSICAL PRE-PROCEDURE UPDATE H&P reviewed. The patient was examined and there are no significant changes to the H&P. Cleve Lawson M.D. Source Note - Jana Hawkins MPAS, P.A.-C. - 02/21/2024 10:40 AM CDT PREANESTHETIC MEDICAL EVALUATION Procedure: Total Vaginal Hysterectomy with BSO, Anterior/Posterior Vaginal Repair, Colpopexy Vaginal, Repair Enterocele. Date of Surgery: 03/09/2024 Requesting Provider: Dr. Sim SUBJECTIVE HISTORY OF PRESENT ILLNESS Camilla Montalvo is a 73 y.o. female seen in consultation for a preanesthetic medical evaluation. She receives her primary care through an OBGYN provider in [place]. She has a PMHx of schatzki ringand hiatal hernia for which she takes Omeprazole 20 mg BID. She has a personal history of breast cancer. She is up to date on screening mammogram (completed December 2023 at [place]). She regularly follows with her PCP in [place]. No history of liver disease, kidney disease, [...] estimated risk of tarik-operative cardiac , non-fatal PA, or non-fatal cardiac arrest: None RCRI risk: 0 Predictors (0.4% risk of major cardiac event) No history of hypertension. Blood pressure at home this morning was 117/74 mmHg. She has some concerns with electrolyte levels today. She reports a history of hyponatremia - specifically an ER visit in [place] in November 2023 the day after her most recently colonoscopy with a sodium level of 128. She had follow up with her primary care provider in [place] after this hospitalization. Social history is significant [...] follow with her primary care provider in [place] for management of chronic medical conditions. #6 Lung Cancer Screening She is candidate for our [facility] Lung Cancer Screening Program. She may consider inquiring withher primary care team in [place] if they offer a similar service. Otherwise, if she decides to enroll in our program I would be happy to place a consult at any time. JANETH Mendosa, P.A.-C. documented in this encounter Nursing Notes * Kaleigh Okeefe R.N. - 03/11/2024 5:16 PM CDT The patient is discharging home to self care in a wheelchair via transport service. * Kaleigh Okeefe R.N. - 03/11/2024 5:15 PM CDT Shift Goals: Clinical Goals for the Shift: Patient will meet discharge criteria Identify possible barriers to meeting goals/advancing plan of care:none End of Shift Summary: Patient returned to baseline ADL function.Patient's pain was managed with scheduled and PRN medications. Patient's urinary output has been adequate. The patient and family member verbalized an understanding of discharge education. .Electronically signed by: Kaleigh Okeefe R.N. 03/11/24 5:16 PM CDT * Kaleigh Okeefe R.N. - 03/10/2024 5:43 PM CDT Shift Goals: Clinical Goals for the Shift: Patient will meet discharge criteria Identify possible barriers to meeting goals/advancing plan of care: Pain, lightheaded End of Shift Summary: Patient's pain was managed with scheduled and PRN medications. Pt was UCO'd but is not successfully able to urinate, service notified and orders to I&O q4h's. Patient becamelight headed and would often feel faint with ambulation service notified. VSS Electronically signed by: Kaleigh Okeefe R.N. 03/10/24 5:48 PM CDT documented in this encounter OR Notes * Op Note - Davy Sim M.D., M.S. - 03/09/2024 8:19 AM CDT Pre-op Diagnosis Cystocele Rectocele With Uterine Prolapse Post-op Diagnosis Cystocele Rectocele With Uterine Prolapse Greeter A first aid director actively participated and was necessary for one or more of the following: opening, exposure and visualization, maintaining hemostasis, wound closure resulting in its safe and expeditious completion. Findings As expected Complications None Operative Note Narrative The patient was identified and brought to the operating room. Anesthesia was introduced. The patient was prepped and draped in the usual sterile fashion in the dorsal lithotomy position with legs in candy-cane stirrups. A surgical pause was completed. Bimanual exam noted no contraindications to proceeding with surgery. Exam demonstrated stage 2 anterior, stage 2 apical, stage 2 posterior prolapse. The bladder was drained and a weighted speculum was placed in the posterior vagina. VAGINAL HYSTERECTOMY, UTEROSACRAL APICAL SUSPENSION and ENTEROCELE REPAIR: Two tenacula were used to grasp the cervix. A circumferential incision was made about the cervix and the anterior and posterior cul-de-sacs entered without difficulty. The uterosacral, cardinal, and uterine vascular pedicleswere sequentially clamped, cut, and suture ligated, being palpably free of the ureters bilaterally.The uterine fundus was inverted and the utero-ovarian pedicles clamped, cut, and suture ligated, delivering the specimen. A pack was placed to elevate the bowel away from the operative field. An adhesion was noted from the rectal peritoneum to the posterior vaginal cuff, likely from her prior appendectomy. During placement of the pack, this adhesion was released. There was no evidence of rectal/bowel injury. The bowel serosa remained intact. The peritoneum from the adhesion was oversewn utilizing 2-0 Vicryl suture in a running fashion. A bilateral salpingo-oophorectomy was then performed, doubly ligating the gonadal vessels. All pedicles were evaluated and hemostasis verified. I began mobilizing the rectosigmoid off the posterior aspect of the cuff. I mobilized it in the midline and laterally on each side. Following this, a wedge resection was taken out of the vaginal apex. An enterocele was noted. Repair of the enterocele was accomplished by plication of the uterosacral ligaments in the midline using No. 1 Vicryl suture. Suspension of the vaginal cuff was accomplished by placement of two modified Arenas sutures of No. 1 Vicryl, utilizing the uterosacral ligament for suspension, and a third reperitonealizing stitch that incorporated the uterosacral ligaments as well. These were all tied and gave excellent apical support. Cystoscopy was performed, and evaluation of the bladder did not reveal any injury. Bilateral ureteral efflux was visualized. The vaginal vault was then closed in an interrupted manner, suture ligating the ligamentous pedicles into the corners of the vault b ilaterally. ANTERIOR COLPORRHAPHY: An anterior colporrhaphy was begun by undermining a midline portion of anterior vaginal mucosa from the vaginal apex to beneath the bladder neck. The mucosa was developed off the underlying connective tissue bilaterally. An initial layer of running 2-0 Vicryl was used to plicate the central defect and imbricate the redundancy in the midline. A second layer of No. 1 Vicryl was used in an interrupted fashion, to further plicate the endopelvic fascia starting at the bladder neck and proceeding all the way to the vaginal apex. The bladder base was secured to the vaginal apex using No. 1 vicryl suture as well. The redundant anterior vaginal epithelium was then excised and the edges reapproximated with interrupted 2-0 Vicryl. POSTERIOR COLPORRHAPHY: A posterior colporrhaphy with perineorrhaphy was then begun by taking a wedge resection out of the perineal body and undermining the midline portion of posterior vaginal mucosa from the perineal body up to meet the previous wedge resection. Utilizing interrupted No. 1 Vicryl, the mucosa and underlying endopelvic fascia were plicated in the midline, giving excellent supportalong the posterior compartment. We were careful to check the length and diameter of the vagina during the repair. It accepted 2 fingers throughout its course without banding. The perineal body was reconstructed using interrupted No. 1 Vicryl suture. The perineal skin was closed using 2-0 Vicryl. VAGINAL PACKING: Iodoform vaginal packing was placed. All sponge, lap, needle, and instrument counts were correct according to nursing. The patient was awakened and taken to the recovery room in stable condition. Davy Sim M.D., M.S. * Brief Op Note - Chante Lawson M.D. - 03/09/2024 8:19 AM CDT Pre-op Diagnosis Cystocele Rectocele With Uterine Prolapse Post-op Diagnosis Cystocele Rectocele With Uterine Prolapse Findings As expected. Complications None Cleve Lawson M.D. documented in this encounter Miscellaneous Notes * Result Encounter Note - Chante Lawson M.D. - 03/13/2024 9:17 AM CDT I have reviewed the final pathology report and the identified diagnosis is consistent with the patient's clinical presentation. * Hospital Course - Anupam Garcia M.D. - 03/09/2024 4:13 PM CDT DISCHARGE SUMMARY Admission Date: 03/09/2024 Discharge Date: 03/09/2024 Discharge Provider: Davy Sim M.D., M* Responsible Author(s): Cleve Lawson M.D. PRIMARY DIAGNOSIS Pelvic organ prolapse ADDITIONAL DIAGNOSES GERD, prediabetes BRIEF HOSPITAL COURSE Surgeon: Davy Sim M.D., M.S. Chante Lawson M.D. [facility] PROCEDURE DATE: 03/09/2024 TYPE OF PROCEDURE(S): HYSTERECTOMY TOTAL VAGINAL. (N/A) SALPINGO-OOPHORECTOMY. (Bilateral) REPAIR ENTEROCELE. (N/A) COLPOPEXY VAGINAL. (N/A) REPAIR ANTERIOR, VAGINAL. (N/A) REPAIR POSTERIOR VAGINA. (N/A) CYSTOSCOPY RIGID. (N/A) PROCEDURAL COMPLICATIONS: None POSTOPERATIVE COURSE: On postoperative day 1, the patient had significant abdominal and pelvic discomfort. She failed hervoiding trial. Rectal Valium suppositories and p.o. Flexeril were added to her pain regimen. She was taught self catheterization. A repeat CBC was ordered and was reassuring. By postoperative day 2, her pain was significantly improved. She was deemed stable for discharge. PATHOLOGY: No results found for this or any previous visit (from the past 168 hour(s)). CYTOLOGY: Order Name Source Comment Collection Info Order Time SURGICAL PATHOLOGY, [facility] Uterus Collected By: Davy Sim M.D., M.S. 03/09/2024 8:44 AM Should the communication of this result to the patient's portal be released immediately? Release Immediately DISMISSAL LABS: Hemoglobin: Lab Results Component Value Date HGB 13.6 12/27/2023 Creatinine: Lab Results Component Value Date CREATININE 0.63 12/27/2023 documented in this encounter Plan of Treatment Scheduled Referrals Name Type Priority Associated Diagnoses Order Schedule Obstetrics and Gynecology Post Op (clinic) Outpatient Referral Routine Expected: 04/20/2024 (Approximate), Expires: 03/09/2027 documented as of this encounter Procedures Procedure Name Priority Date/Time Associated Diagnosis Comments CBC WITHOUT DIFFERENTIAL, B STAT 03/10/2024 2:13 PM CDT CBC WITHOUT DIFFERENTIAL, B Routine 03/10/2024 12:31 AM CDT BASIC METABOLIC PANEL, S/P Routine 03/10/2024 12:31 AM CDT ADULT OXYGEN THERAPY Routine 03/09/2024 11:36 AM CDT DX ABDOMEN 1 VIEW RAD - Routine (most inpatients and all outpatients) 03/09/2024 11:33 AM CDT SURGICAL PATHOLOGY, [facility] Routine 03/09/2024 8:43 AM CDT Cystocele Rectocele With Uterine Prolapse CYSTOSCOPY RIGID 03/09/2024 7:26 AM CDT Cystocele [...] Prolapse ECG Routine 03/09/2024 7:20 AM CDT documented in this encounter Results * (ABNORMAL) CBC without Differential (03/10/2024 2:13 PM CDT) Pathologist [facility] Hemoglobin 12.4 11.6 - 15.0 g/dL 03/10/2024 [...] BLOOD ADD-ON Lima l Result [facility] [address] [place] [address], [facility] METH [facility] [address] [place] [address] * (ABNORMAL) Basic Metabolic Panel (03/10/2024 12:31 AM CDT) [facility] Potassium, S 4.8 3.6 - 5.2 mmol/L [...] 12:31 AM CDT 03/10/2024 12:58 AM CDT Vin Ku M.D. LAB BLOOD ADD-ON Final Res ult [place] [address] [place] [address], [facility] [address] [place] [address] * (ABNORMAL) CBC without Differential (03/10/2024 12:31 AM CDT) Hemoglobin 13.1 11.6 - 15.0 g/dL 03/10/2024 12:52 AM CDT DTL Hematocrit 37.3 35.5 - 44.9 % 03/10/2024 12:52 AM CDT DTL Erythrocytes 4.19 3.92 - 5.13 x10(12)/L 03/10/2024 12:52 AM CDT DTL MCV 89.0 78.2 - 97.9 fL 03/10/2024 12:52 AM CDT DTL RBC Distrib Width 12.0(L) 12.2 - 16.1 % 03/10/2024 12:52 AM CDT DTL Platelet Count 388(H) 157 - 371 x10(9)/L 03/10/2024 12:52 AM CDT DTL Leukocytes 12.4(H) 3.4 - 9.6 x10(9)/L 03/10/2024 12:52 AM CDT DTL Blood (Blood, Venous) 03/10/2024 12:31 AM CDT 03/10/2024 12:44 AM CDT us Vin Ku M.D. LAB BLOOD ADD-ON Final Res ult [facility] [address] [place] [address], [facility] [address] [place] [address] * DX Abdomen 1 View (03/09/2024 11:33 AM CDT) Anatomical Region Laterality Modality Abdomen, Abdominal RST LOS, Abdominal ARZ LOS, Abdominal FLA LOS N/A Digital Radiography Impressions 03/09/2024 11:43 AM CDT Negative for postoperative purposes. Narrative 03/09/2024 11:43 AM CDT EXAM: DX ABDOMEN 1 VIEW Procedure Note Davy Keen M.D. - 03/09/2024 EXAM: DX ABDOMEN 1 VIEW IMPRESSION: Negative for postoperative purposes. us Davy Sim M.D., M.S. IMG DIAGNOSTIC IMAGING [...] ranging from 0.6 cm to 3 cm. Emd Teacher tissue submitted for permanent sections. Grossed by Anais Regan M.S., DEANDRA([facility]). B. Received fresh labeled left fallopian tube and ovary is a 5.9 x 0.6 cm fallopian tube with an attached 2.1 x 0.9 x 0.4 cm ovary. There are multiple paratubal and adnexal cysts, ranging from 0.2 cm to 0.8 cm in greatest dimension. The fallopian tube is otherwise unremarkable. The ovary has a solid cut surface. Emd Teacher tissue submitted for permanent sections. Grossed by Margoth Zarco M.D.-Pathology Resident and Anais Regan M.S., DEANDRA([facility]). C. Received fresh labeled right fallopian tube and ovary is a 0.6 g, 1.8 x 1.1 x 0.6 cm ovary with 6.4 x 0.8 cm fallopian tube. The ovary has a smooth outer surface and solid cut surface. The fallopian tube has multiple paratubal cysts ranging from 0.1 cm to 0.6 cm. Emd Teacher tissue submitted for permanent sections. Grossed by Umair Kent, DEANDRA([facility]). 03/11/2024 7:00 AM CDT METH [...] of the testing process was performed at [facility] site [id number]. Digital imaging was used in the diagnostic assessment of this case. 03/11/2024 7:00 AM CDT METH Tissue (Uterus) 03/09/2024 8 :43 AM CDT Tissue (Fallopian Tube, Left) 03/09/2024 8:54 AM CDT Tissue (Fallopian Tube, Right) 03/09/2024 9:02 AM CDT us Davy Sim M.D., M.S. LAB SURG PATH ORDERABL ES Final Result Performing Organization Address City/[facility]/ZIP Co de Phone Number [facility] [address] [place] [address], [facility] METH [address] [place] [address] * ECG 12 Lead (03/09/2024 7:20 AM CDT) Ventricular Rate ECG/Min 66 BPM MUSE IA Interval 160 ms MUSE QRSD Interval 80 ms MUSE QT Interval 420 ms MUSE QTC Interval 440 ms MUSE P Carefree 72 degrees MUSE R Carefree 26 degrees MUSE T Wave Carefree 63 degrees MUSE 03/09/2024 7:20 AM CDT 03/09/2024 7:23 AM CDT Impressions MUSE - 03/09/2024 7:23 AM CDT Normal sinus rhythm Normal ECG No previous ECGs available Reviewed by ALTHEA Briscoe Narrative Procedure Note Garret Jane M.D. - 03/09/2024 IMPRESSION: Normal sinus rhythm Normal ECG No previous ECGs available Reviewed by ALTHEA Briscoe us Brian Garcia M.D. ECG ORDERABLES Final Res ult Performing Organization Address City/[facility]/ZIP Co de Phone Number MUSE NA documented in this encounter Visit Diagnoses Diagnosis Cystocele Rectocele With Uterine Prolapse- Primary Cystocele Rectocele With Uterine Prolapse Retention Urinary Cystocele Rectocele With Uterine Prolapse documented in this encounter Admitting Diagnoses Diagnosis Cystocele Rectocele With Uterine Prolapse documented in this encounter Administered Medications Inactive Administered Medications - up to 3 most recent administrations Medication Order MAR Action Action Date Dose Rate Site acetaminophen tablet 1,000 mg (TylenoL) 1,000 mg, oral, 4 times daily, First dose on Jerica 03/09/24 at 1700, not to exceed 4 grams in 24 hours. Given 03/11/2024 2:32 PM CDT 1,000 mg Given 03/11/2024 8:04 AM CDT 1,000 mg Given 03/10/2024 8:18 PM CDT 1,000 mg BUPivacaine 0.25 % (2.5 mg/mL) injection (Marcaine) As needed, Starting on Jerica 03/09/24 at 1114, Intra-Op Given 03/09/2024 11:14 AM CDT 30 mL Other calcium carbonate chewable tablet 200 mg of calcium (Tums) 200 mg of calcium, oral, Daily PRN, heartburn, indigestion, Starting on Jerica 03/09/24 at 2152, calcium carbonate chewable 500 mg (200 mg elemental) was interchanged for calcium carbonate chewable 500 mg calcium carbonate contains 200 mg of elemental calcium. Given 03/10/2024 11:47 AM CDT 200 mg of calcium cyclobenzaprine tablet 5 mg (FlexeriL) 5 mg, oral, 3 times daily PRN, muscle spasms, Starting on Wed03/10/24 at 1341 Given 03/11/2024 4:45 PM CDT 5 mg Given 03/10/2024 10:27 PM CDT 5 mg Given 03/10/2024 4:44 PM CDT 5 mg diazePAM suppository 5 mg (Valium) 5 mg, rectal, 2 times daily PRN, muscle spasms, Starting on Wed03/10/24 at 1342 Given 03/10/2024 2:41 PM CDT 5 mg HYDROmorphone (PF) injection 0.4 mg (Dilaudid) 0.4 mg, intravenous, Every 2 hour PRN, for breakthrough pain, Starting on Jerica 03/09/24 at 1352, Unrelieved 30 minutes after PRN oral pain medication is used; if unable to take oral pain medication; or if pain is greater than or equal to 7, use instead of oral pain medication. Given 03/09/2024 10:49 PM CDT 0.4 mg Given 03/09/2024 4:23 PM CDT 0.4 mg ibuprofen tablet 400 mg 400 mg, oral, Every 6 hours, First dose on Wed03/10/24 at 1800, start 6 hours after last ketorolac dose administered. Given 03/11/2024 2:32 PM CDT 400 mg Given 03/11/2024 8:04 AM CDT 400 mg Given 03/11/2024 2:06 AM CDT 400 mg Lactated Ringer's 40 mL/hr, intravenous, Continuous, Starting on Jerica 03/09/24 at 1415 Continued from OR 03/09/2024 2:13 PM CDT 40 mL/hr 40 mL/hr oxyCODONE IR tablet 10 mg (Roxicodone) 10 mg, oral, Every 4 hours PRN, severe pain or score 7-10 of 10, Administer if pain is unrelieved by acetaminophen, ibuprofen, ice, or heat., Starting on Jerica 03/09/24 at 1352, For patients that received intrathecal analgesia, start 24 hours after intrathecal dose given Given 03/10/2024 12:35 PM CDT 10 mg Given 03/09/2024 7:58 PM CDT 10 mg Given 03/09/2024 2:51 PM CDT 10 mg oxyCODONE IR tablet 5 mg (Roxicodone) 5 mg, oral, Every 4 hours PRN, moderate pain or score 4-6 of 10, Administer if pain is unrelieved by acetaminophen, ibuprofen, ice, or heat., Starting on Jerica 03/09/24 at 1352, For patients that received intrathecal analgesia, start 24 hours after intrathecal dose given Given 03/11/2024 4:45 PM CDT 5 mg Given 03/10/2024 10:27 PM CDT 5 mg Given 03/10/2024 6:01 PM CDT [address] tablet 40 mg (Protonix) 40 mg, oral, Daily before morning meal, First dose on Wed03/10/24 at 0700, pantoprazole 40 mg oral daily was interchanged for omeprazole 20 or 40 mg oral daily Swallow whole. Do NOT crush, chew, or split tablet. Given 03/11/2024 6:42 AM CDT 40 mg Given 03/10/2024 8:35 AM CDT 40 mg sennosides-docusate sodium 8.6-50 mg per tablet 1 tablet (Senokot-S) 1 tablet, oral, 2 times daily, First dose on Jerica 03/09/24 at 2100, Starting evening of surgery. Given 03/11/2024 8:04 AM CDT 1 tablet Given 03/10/2024 8:18 PM CDT 1 tablet Given 03/10/2024 8:35 AM CDT 1 tablet simethicone chewable tablet 80 mg 80 mg, oral, 4 times daily PRN, flatulence, Starting on 03/10/24 at 1146 Given 03/11/2024 4:17 PM CDT 80 mg Given 03/10/2024 4:44 PM CDT 80 mg Given 03/10/2024 12:33 PM CDT 80 mg documented in this encounter Active and Recently Administered Medications Times are shown in CDT. Scheduled Medication Order 03/09/2024 03/10/2024 03/11/2024 acetaminophen tablet 1,000 mg (TylenoL) (COMPLETED) 1,000 mg, oral, Once, On Jerica 03/09/24 at 0730, For 1 dose, Pre-Op, In Pre Op holding (PWA) 0712 (Given - Provider: Zina Pearson RBrendanN.) acetaminophen tablet 1,000 mg (TylenoL) 1,000 mg, oral, 4 times daily, First dose on Jerica 03/09/24 at 1700, not to exceed 4 grams in 24 hours. 1623 (Given - Provider: Katheryn Tinoco R.N.)1999 (Given - Provider: Clarissa Felton RBrendanN.) 0527 (Given - Provider: Jacob Sherman R.N.)1147 (Given - Provider: Kaleigh Okeefe RBrendanN.)195 (Not Given - Provider: Nayely Mcclain R.N. - Reason: Other)2018 (Given - Provider: Nayely Mcclain R.N.) 0804 (Given - Provider: Kaleigh Okeefe R.N.)1432 (Given - Provider: Mack Early RBrendanNBrendan) aprepitant capsule 40 mg (Emend) (COMPLETED) 40 mg, oral, Once, On Jerica 03/09/24 at 0730, For 1 dose, Pre-Op, Restriction Criteria (Pharmacy will review and approve if criteria met): Patient does not have IV access and cannot receive fosaprepitant IV 0712 (Given - Provider: Zina Pearson R.N.) ceFAZolin injection 2,000 mg (Ancef) (COMPLETED) 2,000 mg (rounded from 1,772.5 mg = [...] indication and drug clearance factors., Indications: Prophylaxis, surgical 08 (Given - Provider: Pedro Luis Felix APRN, NICOLE, DNAP)1058 (Given - Provider: Pedro Luis Felix APRN, NICOLE, DNAP) celecoxib capsule 200 mg (CeleBREX) (COMPLETED) 200 mg, oral, Once, On Jerica 03/09/24 at 0730, For 1 dose, Pre-Op, Pre-procedure on unit. Not to be administered for acute GI bleed, history of GI bleed within past 6 months, or NSAID contraindications. 0713 (Given - Provider: Zina Pearson R.N.) ibuprofen tablet 400 mg(Linked Group 1) 400 mg, oral, Every 6 hours, First dose on Wed03/10/24 at 1800, start 6 hours after last ketorolac dose administered. 1757 (Given - Provider: Kaleigh Okeefe R.N.) 0206 (Given - Provider: Nayely Mcclain RCleve)0804 (Given - Provider: Kaleigh Okeefe R.N.)1432 (Given - Provider: Mack Early R.N.) ketamine injection 10 mg (Ketalar) (COMPLETED) 10 mg, intravenous, Once, On Jerica 03/09/24 at 1230, For 1 dose, PACU (only) 1206 (Given - Provider: Ayde Rodriguez RBrendanNBrendan) ketorolac injection 15 mg (ToradoL) (COMPLETED)(Linked Group 1) 15 mg, intravenous, Every 6 hours, First dose on Jerica 03/09/24 at 1800, For 4 doses, start no sooner than 6 hours after last intraoperative dose. Adult IV push rate: Over 15 seconds. Peds IV push rate: Over 1 minute. Doses > 15 mg IV/IM are discouraged due to lack of additional analgesic benefit. 182 (Given - Provider: Katheryn Tinoco RBrendanNBrendan) 0249 (Given - Provider: Clarissa Felton R.N.)0835 (Given - Provider: Kaleigh Okeefe R.N.)1441 (Given - Provider: Kaleigh Okeefe R.N.) pantoprazole DR tablet 40 mg (Protonix) 40 mg, oral, Daily before morning meal, First dose on Wed03/10/24 at 0700, pantoprazole 40 mg oral daily was interchanged for omeprazole 20 or 40 mg oral daily Swallow whole. Do NOT crush, chew, or split tablet. 0835 (Given - Provider: Kaleigh Okeefe R.N.) 0642 (Given - Provider: Nayely Mcclain RCleve) phenazopyridine tablet 200 mg (Pyridium) (COMPLETED) 200 mg, oral, Once, On Jerica 03/09/24 at 0730, For 1 dose, Pre-Op, In Pre Op holding (PWA), Drug Monitoring Program: Pharmacist to adjust medication dosing based on indication and drug clearance factors. 0712 (Given - Provider: Zina Pearson RBrendanNBrendan) sennosides-docusate sodium 8.6-50 mg per tablet 1 tablet (Senokot-S) 1 tablet, oral, 2 times daily, First dose on Jerica 03/09/24 at 2100, Starting evening of surgery. 1999 (Given - Provider: Clarissa Felton R.N.) 0835 (Given - Provider: Kaleigh Okeefe R.N.)2017 (Given - Provider: Nayely A Schrandt, R.N.) 0804 (Given - Provider: Kaleigh Okeefe R.N.) Continuous Medication Order 03/09/2024 03/10/2024 03/11/2024 Lactated Ringer's 40 mL/hr, intravenous, Continuous, Starting on Jerica 03/09/24 at 1415 1413 (Continued from OR - Provider: Katheryn Tinoco R.N.)1910 (Stopped - Provider: Clarissa Felton R.N. - Comment: was stopped my previous nurse Katheryn Lombardo at 191) Lactated Ringer's (CANCELED) 20 mL/hr, intravenous, Continuous, Starting on Jerica 03/09/24 at 1130, PACU & Post-Op 1142 (Continued from OR - Provider: Ayde Rodriguez R.N.) PRN Medication Order 03/09/2024 03/10/2024 03/11/2024 acetaminophen injection 1,000 mg (COMPLETED)(Linked Group 2) 1,000 mg, intravenous, at 400 mL/hr, Administer over 15 Minutes, Once as needed, other, If patient has not received in previous 6 hours, Starting on Jerica 03/09/24 at 1136, For 1 dose, PACU (only), Oral unless RASS less than -1 or nausea/vomiting. Do not use if given in last 6 hours, Restriction Criteria (Pharmacy will review and approve if criteria met): Unable to take or tolerate medications administered via the enteral route or orally (not just NPO) 1258 (New Bag - Provider: Luz Elena Bower RBrendanNBrendan) BUPivacaine 0.25 % (2.5 mg/mL) injection (Marcaine) (CANCELED) As needed, Starting on Jerica 03/09/24 at 1114, Intra-Op 1114 (Given - Provider: Chante Lawson M.D. - Comment: Injected into vaginal incision) calcium carbonate chewable tablet 200 mg of calcium (Tums) 200 mg of calcium, oral, Daily PRN, heartburn, indigestion, Starting on Jerica 03/09/24 at 2152, calcium carbonate chewable 500 mg (200 mg elemental) was interchanged for calcium carbonate chewable 500 mg calcium carbonate contains 200 mg of elemental calcium. 1147 (Given - Provider: Kaleigh L Lembke, R.N.) cyclobenzaprine tablet 5 mg (FlexeriL) 5 mg, oral, 3 times daily PRN, muscle spasms, Starting on Wed03/10/24 at 1341 1644 (Given - Provider: Kaleigh Okeefe R.N.)2227 (Given - Provider: Nayely Mcclain RBrendanNBrendan) 1645 (Given - Provider: Kaleigh Okeefe R.N.) diazePAM suppository 5 mg (Valium) 5 mg, rectal, 2 times daily PRN, muscle spasms, Starting on Wed03/10/24 at 1342 1441 (Given - Provider: Kaleigh Okeefe R.N.) fentaNYL injection 25 mcg (Sublimaze) (CANCELED) 25 mcg, intravenous, Every 2 min PRN, For pain 4 or greater (maximum 100 mcg). If max dose of Fentanyl is reached and if pain is greater than 4, discontinue Fentanyl: give Hydromorphone, Starting on Jerica 03/09/24 at 1136, PACU (only) 1313 (Given - Provider: Luz Elena Bower RBrendanN.)1342 (Given - Provider: Toño SinghN.) HYDROmorphone (PF) injection 0.2 mg (Dilaudid) (CANCELED) 0.2 mg, intravenous, Every 5 min PRN, moderate pain or score 4-6 of 10, severe pain or score 7-10 of 10, Starting on Jerica 03/09/24 at 1136, PACU (only), Up to maximum total dose of 2 mg 1140 (Given - Provider: Ayde Rodriguez RBrendanN.)1145 (Given - Provider: Ayde Rodriguez RBrendanN.) HYDROmorphone (PF) injection 0.4 mg (Dilaudid) 0.4 mg, intravenous, Every 2 hour PRN, for breakthrough pain, Starting on Jerica 03/09/24 at 1352, Unrelieved 30 minutes after PRN oral pain medication is used; if unable to take oral pain medication; or if pain is greater than or equal to 7, use instead of oral pain medication. 1623 (Given - Provider: Katheryn Tinoco RCleve)2249 (Given - Provider: Clarissa Felton R.N.) ketamine injection 10 mg (Ketalar) (COMPLETED) 10 mg, intravenous, Once as needed, Refractory moderate pain or score 4-6 of 10, Refractory severe pain score 7-10 of 10 after fentanyl or hydromorphone administration, Pain sedation mismatch AND RASS less than -1, Starting on Jerica 03/09/24 at 1136, For 1 dose, PACU (only) 1158 (Given - Provider: Ayde Rodriguez RCleve) naloxone injection 0.2 mg (Narcan) 0.2 mg, intravenous, As needed, respiratory depression, Starting on Jerica 03/09/24 at 1352, For RASS Score -4 or less, respiratory rate of less than 8 breaths/min. Notify provider/service and rapid response team (if available at institution). oxyCODONE IR tablet 10 mg (Roxicodone)(Linked Group 3) 10 mg, oral, Every 4 hours PRN, severe pain or score 7-10 of 10, Administer if pain is unrelieved by acetaminophen, ibuprofen, ice, or heat., Starting on Jerica 03/09/24 at 1352, For patients that received intrathecal analgesia, start 24 hours after intrathecal dose given 1451 (Given - Provider: Katheryn Tinoco RBrendanN.)1958 (Given - Provider: Clarissa Felton R.N.) 0527 (See Alternative - Provider: Jacob Sherman R.N.)1235 (Given - Provider: Jacob Sherman R.N.)1801 (See Alternative - Provider: Kaleigh Okeefe RBrendanNBrendan)2227 (See Alternative - Provider: Nayely Mcclain R.N.) 1645 (See Alternative - Provider: Kaleigh Okeefe R.N.) oxyCODONE IR tablet 5 mg (Roxicodone)(Linked Group 3) 5 mg, oral, Every 4 hours PRN, moderate pain or score 4-6 of 10, Administer if pain is unrelieved by acetaminophen, ibuprofen, ice, or heat., Starting on Jerica 03/09/24 at 1352, For patients that received intrathecal analgesia, start 24 hours after intrathecal dose given 1451 (See Alternative - Provider: Katheryn Tinoco RBrendanN.)1958 (See Alternative - Provider: Clarissa Felton RBrendanNBrendan) 0527 (Given - Provider: Jacob Sherman RBrendanNBrendan)1235 (See Alternative - Provider: Jacob Sherman R.N.)1801 (Given - Provider: Toño BarahonaNBrendan)2227 (Given - Provider: Nayely Mcclain RBrendanNBrendan) 1645 (Given - Provider: Kaleigh Okeefe R.N.) simethicone chewable tablet 80 mg 80 mg, oral, 4 times daily PRN, flatulence, Starting on Wed03/10/24 at 1146 1233 (Given - Provider: Kaleigh Okeefe R.N.)1644 (Given - Provider: Toño BarahonaNBrendan) 1617 (Given - Provider: Kaleigh Okeefe R.N.) Linked Groups Order Group 1: ketorolac injection 15 mg (ToradoL) (COMPLETED)Jump to med 15 mg, intravenous, Every 6 hours, First dose on Jerica 03/09/24 at 1800, For 4 doses, start no sooner than 6 hours after last intraoperative dose. Adult IV push rate: Over 15 seconds. Peds IV push rate: Over 1 minute. Doses > 15 mg IV/IM are discouraged due to lack of additional analgesic benefit. Followed by ibuprofen tablet 400 mgJump to med 400 mg, oral, Every 6 hours, First dose on Wed03/10/24 at 1800, start 6 hours after last ketorolac dose administered. Group 2: acetaminophen tablet 1,000 mg (TylenoL) (COMPLETED) 1,000 mg, oral, Once as needed, other, If patient has not received in the previous 6 hours, Starting on Jerica 03/09/24 at 1136, For 1 dose, PACU (only), Oral unless RASS less than -1 or nausea/vomiting. Do not use if given in last 6 hours Or acetaminophen injection 1,000 mg (COMPLETED)Jump to med 1,000 mg, intravenous, at 400 mL/hr, Administer over 15 Minutes, Once as needed, other, If patient has not received in previous 6 hours, Starting on Jerica 03/09/24 at 1136, For 1 dose, PACU (only), Oral unless RASS less than -1 or nausea/vomiting. Do not use if given in last 6 hours, Restriction Criteria (Pharmacy will review and approve if criteria met): Unable to take or tolerate medications administered via the enteral route or orally (not just NPO) Group 3: oxyCODONE IR tablet 5 mg (Roxicodone)Jump to med 5 mg, oral, Every 4 hours PRN, moderate pain or score 4-6 of 10, Administer if pain is unrelieved by acetaminophen, ibuprofen, ice, or heat., Starting on Jerica 03/09/24 at 1352, For patients that received intrathecal analgesia, start 24 hours after intrathecal dose given Or oxyCODONE IR tablet 10 mg (Roxicodone)Jump to med 10 mg, oral, Every 4 hours PRN, severe pain or score 7-10 of 10, Administer if pain is unrelieved by acetaminophen, ibuprofen, ice, or heat., Starting on Jerica 03/09/24 at 1352, For patients that received intrathecal analgesia, start 24 hours after intrathecal dose given documented in this encounter Care Teams Artificial Snow Making Machine Operator Relationship Specialty Start Date End Date Jana Hawkins MPAS, P.A.-C. [address] [place] [address] [place] [phone] PCP - General Internal Medicine 10/22/22 documented as of this encounter
--- OUTSIDE RECORDS SUMMARY | 2024-05-15 02:35 | XMS_ITS | Encounter Summary ---
Author Organization [facility] Address [address] [place] [address] Care Team Providers Care Label Stamper Name Role Phone Jana Hawkins P.A.-C. Primary Care Pro vider Encounter Details Date Type Department Care Team (Latest Contact Info) Description 03/15/2024 10:36 AM CDT - 03/15/2024 11:59 PM CDT Hospital Encounter Department of Laboratory Medicine in [place] [address] [place] [phone] Davy Sim M.D., M.S. [address] [place] [phone] Symptom Urinary Discharge Disposition: Home or Self Care Social History Tobacco Use Types Packs/Day Years Used Date Smoking Tobacco: Former Cigarettes 1 94 0 12/06/1972 - 12/25/2019 Passive Smoke Exposure: Never Smokeless Tobacco: Never Alcohol Use Standard Drinks/Week Comments Not Currently 0 (1 standard drink = 0.6 oz pur e alcohol) [facility] Utilities Answer Date Recorded In the [...] your living situation today? 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 03/09/2024 nitrofurantoin monohydrate (Macrobid) 100 mg capsule Take 1 capsule (100 mg total) by mouth 2 (two) times a day for 7 days. 14 capsule 03/15/2024 oxyCODONE (Roxicodone) 5 mg immediate release tabletIndications:A cute Pain Take 1 tablet (5 mg total) by mouth every 4 (four) hours as needed for pain (not controlled with ibuprofen and tylenol) Indication: Acute Pain. 10 tablet 03/11/2024 1:41 PM CDT 03/09/2024 4 documented as of this encounter Plan of Treatment Not on file documented as of this encounter Procedures Procedure Name Priority Date/Time Associated Diagnosis Comments BACTERIAL CULTURE, AEROBIC + SUSC, URINE Routine 03/15/2024 10:42 AM CDT Symptom Urinary documented in this encounter Results * (ABNORMAL) [...] Sulfamethoxazole SUSCEPTIBILITY, KUSUM (MCG/ML) <=20 mcg/mL: Susceptible us Davy Sim M.D., M.S. LAB MICROBIOLOGY - GEN ERAL ORDERABLES Final Result [facility] [address] [place] [address], [facility] in [place] [address] [place] [address] documented in this encounter Visit Diagnoses Diagnosis Symptom Urinary documented in this encounter Care Teams Label Stamper Relationship Specialty Start Date End Date Jana Hawkins MPAS, P.A.-C. [address] [place] [phone] PCP - General Internal Medicine 10/22/22 documented as of this encounter
--- OUTSIDE RECORDS SUMMARY | 2024-05-15 02:35 | XMS_ITS | Encounter Summary ---
Author Organization [facility] Address [address] [place] [id number] Care Team Providers Care Retail Analyst Name Role Phone Jana Hawkins P.A.-C. Primary Care Pro vider Reason for Visit * Reason Onset Date Comments Communication 02/14/2024 Encounter Details Date Type Department Care Team (Latest Contact Info) Description 02/14/2024 Clinical Communication Department of Obstetrics and Gynecology, Division of Urogynecology in [place], [place] [address] [place] [address] Davy Sim M.D., M.S. [address] [place] [phone] Communication Social History Tobacco Use Types Packs/Day Years Used Date Smoking Tobacco: Former Cigarettes Passive Smoke Exposure: Never Smokeless Tobacco: Never Alcohol Use Standard Drinks/Week Comments Not Currently 0 (1 standard drink = 0.6 oz pur e alcohol) [facility] Utilities Answer Date Recorded In the past 12 months has [employer] electric, gas, oil, or water company threatened [...] your living situation today? 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 - 02/14/2024 4:53 PM CDT Responded to patient's portal message in another encounter. documented in this encounter Plan of Treatment Not on file documented as of this encounter Visit Diagnoses Not on filedocumented in this encounter Care Teams Retail Analyst Relationship Specialty Start Date End Date Jana Hawkins MPAS, P.A.-C. [address] [place] [address] [place] [phone] PCP - General Internal Medicine 10/22/22 documented as of this encounter
--- OUTSIDE RECORDS SUMMARY | 2024-05-15 02:35 | XMS_ITS | Clinical Summary ---
Author Organization [facility] Address [place], [place] [address] Care Team Providers Care Senior Gamemaster Name Role Phone Pinky Yusuf Jane Kristin MD Primary Care Provide r Allergies Active Allergy Reactions Criticality Noted Date Comments Amoxicillin Diarrhea,Edema 07/06/2015 Influenza Virus Vaccines Dyspnea 04/26/2008 Eye swelling Sulfa (Sulfonamide Antibiotics) Headache 08/06 Wine Spirit Hives 05/08/2015 Medications fluticasone (50 mcg per actuation) nasal solution (FLONASE)Indica tions:Bilateral acute serous otitis media, recurrence not specified Inhale 1 Wallace into both nostrils 2 times daily. 1 Bottle 0 08/22/2015 Active omeprazole (PRILOSEC) 20 mg Delayed-Release capsuleIndicati ons:Hiatal hernia with GERD TAKE 1 CAPSULE BY MOUTH TWO TIMES A DAY BEFORE MEALS. 60 capsule 11 11/05/2015 Active varenicline (CHANTIX STARTING MONTH BOX) 0.5 mg (11)- 1 mg (42) tabletIndicatio ns:Tobacco dependence Take one 0.5mg tab daily for 3 days, then one 0.5mg tab twice daily for 4 days, then one 1mg tab twice daily. 1 Packet 10/23/2016 Active tamoxifen (NOLVADEX) 20 mg tablet Take 20 mg by mouth once daily. 12/11/2021 Active Active Problems Problem Noted Date Diagnosed Date Elevated BP 08/22/2015 Overweight (BMI 25.0-29.9) 08/22/2015 Bladder prolapse, female, acquired 07/06/2015 Overview (07/06/2015): Pessary from [facility] with support Hiatal hernia with GERD 07/06/2015 Overview (07/06/2015): Schatzke ring - 06/22 Other acne 11/06/2014 Colon polyps 10/01/2009 Overview (11/06/2013): Colonoscopy 09/2009 polyps repeat in 5 years [...] alcohol) 2 beers 3 times a week Comments No Sex and Gender Information Value Date Recorded Sex Assigned at Not on file Legal Sex Female 6:17 AM MASSEUR/MASSEUSE Gender Identity Not on file Sexual Orientation Not on file Occupation Industry Job Start Date Job End Date Not on file Not on file Not on file Not on file Obstetrics History Para Term AB IAB SAB Ectopic Multiple Livin g Live Births 3 3 Date Outcome GA Total Labor Labor/2nd/3rd Weight Sex Type Anes PTL Kayla A1 A5 Name Clin Last Filed Vital Signs Vital Sign Reading Time Taken Comments Blood Pressure 128/74 12/24/2021 1:36 PM CDT Pulse 80 12/24/2021 1:36 PM CDT Temperature 36.7 C (98.1 F) 08/22/2015 11:05 AM CDT Respiratory Rate 16 09/12/2010 10:31 AM CDT [...] 77 11/02/201811/02, 11/01/2013, 09/27/2009 ([facility] Additional history exists COVID-19 vaccine series ( season) 2024 09/16/2021, 03/31/2021, 09/05/2020, Additional history exists Influenza for age 65+ 02/06/2024 03/27/1999 Tdap Completed 04/26/2008 Procedures Procedure Name Priority Date/Time Associated Diagnosis Comments XR MAMMO BILAT SCREEN FFDM (IA) Routine 07/19/2013 10:00 AM MASSEUR/MASSEUSE Other screening mammogram LIPID PANEL Routine 08/20/2010 9:39 AM CDT Lipid screening from Last 3 Months or Most Recently Relevant to Health Maintenance Results * XR MAMMO BILAT SCREEN FFDM (07/19/2013 10:00 AM MASSEUR/MASSEUSE) Anatomical Region Laterality Modality BREASTS, Breast Left, Breast Right Bilateral Mammography Impressions 07/19/2013 12:34 PM MASSEUR/MASSEUSE There is no radiographic evidence for malignancy. Recommend annual mammograms. A lay language report of this examination will be provided to the patient. MAMMOGRAM ASSESSMENT: ACR 2 Benign Narrative 07/19/2013 12:34 PM MASSEUR/MASSEUSE XR MAMMO BILAT SCREEN FFDM [G0202.0] CLINICAL HISTORY: This is an asymptomatic 62 y.o. patient. INDICATION FOR EXAM: Mammogram Screening. TECHNIQUE: CC & MLO views were obtained. This digital study was evaluated with the assistance of Computer-Aided Detection. COMPARISON FILMS: Yes 07/04/12 [facility] 09/04/10 [facility] FINDINGS: Mammographically, the breast tissue is heterogeneously dense, which could obscure detection of small masses (approximately 51% - 75% glandular). No suspicious masses or microcalcifications. Benign appearing calcifications within both breasts. Procedure Note Artem White, - 07/19/2013 XR MAMMO BILAT SCREEN FFDM [G0202.0] CLINICAL HISTORY: This is an asymptomatic 62 y.o. patient. INDICATION FOR EXAM: Mammogram Screening. TECHNIQUE: CC & MLO views were obtained. This digital study was evaluatedwith the assistance of Computer-Aided Detection. COMPARISON FILMS: Yes 07/04/12 [facility] 09/04/10 [facility] FINDINGS: Mammographically, the breast tissue is heterogeneously dense,which could obscure detection of small masses (approximately 51% - 75%glandular). No suspicious masses or microcalcifications. Benignappearing calcifications within both breasts. IMPRESSION: There is no radiographic evidence for malignancy. Recommendannual mammograms. A lay language report of this examination will be provided to the patient. MAMMOGRAM ASSESSMENT: ACR 2 Benign us Arcelia Klein MD MAMMO Fi nal Result * LIPID (08/20/2010 9:39 AM CDT) CHOLESTEROL,TOTAL 183 110 - 199 mg/dL [facility] TRIGLYCERIDES 122 <150 mg/dL [facility] HDL CHOLESTEROL 69 >40 mg/dL [facility] CHOL/HDL RATIO 2.65 <4.51 [facility] LDL CHOLESTEROL 90 <131 mg/dL [facility] PATIENT STATUS Fasting [facility] Blood specimen (specimen) BLOOD SPECIMEN / Unknown 08/20/2010 9:39 AM CDT 08/20/2010 9:28 AM CDT Grace Hutchins NP CHEMISTRY Final Result [facility] [address] [place], [place] [id number] from Last 3 Months or Most Recently Relevant to Health Maintenance [place] [address] [employer] [place] [place] [address] [employer] [place] [id number] Care Teams Senior Gamemaster Relationship Specialty Start Date End Date Melodie Aguilar MD [address] [place] [address] PCP - General Family Practice 04/12/15 Pinky Yusuf PSYCHOLOGY LECTURER Obstetrics and Gynecology 09/20/12
--- OUTSIDE RECORDS SUMMARY | 2024-05-15 02:35 | XMS_ITS | Encounter Summary ---
Author Organization [facility] Address [address] [place] [address] Care Team Providers Care Master Tax Advisor Name Role Phone Jana Hawkins P.A.-C. Primary Care Pro vider Reason for Visit * Reason Onset Date Comments Post Hospital Follow-up 03/13/2024 Encounter Details Date Type Department Care Team (Latest Contact Info) Description 03/13/2024 Clinical Communication Department of Community Internal Medicine in [place], [place] [address] [place] [phone] Lacy Brooke, RBrendanNBrendan [address] [place] [phone] Post Hospital Follow-up Social History Tobacco Use Types Packs/Day Years Used Date Smoking Tobacco: Former Cigarettes 1 94 0 12/06/1972 - 12/25/2019 Passive Smoke Exposure: Never Smokeless Tobacco: Never Alcohol Use Standard Drinks/Week Comments Not Currently 0 (1 standard drink = 0.6 oz pur e alcohol) [facility] Utilities Answer Date Recorded In [...] your living situation today? 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 - 03/13/2024 12:56 PM CDT SUBJECTIVE REASON FOR CALL Post-Hospital follow-up phone call with patient. Admission Date: 03/09/24 Discharge Date: 03/11/24 Discharge Diagnosis: PRIMARY DIAGNOSIS Pelvic organ prolapse General Health Notes today that she is feeling the same since discharged from the hospital. Concerns/questions: Patient has no questions or concerns. Symptom Review Pain: Reports acute pain in abdominal incision/hips. Describes the pain as achy, with an intensity of 4. Contributing factors include movement/activity. The patient has tried Heating pad, ice, Tylenol and Advil, which has been helpful. Activities of Daily Living Patient is independent with activities of daily living. Has the patient had a fall since discharge: no. Has ambulation changed since hospitalization: no. Difficulty ambulating: no. The patient lives with spouse. Patient identified if needing assistance, she could depend on . Wounds/Incisions/Lines, Drains and Airways None Medication Status Current medication list was not reviewed and updated as needed. Reports medication is self managed. Medications concerns: none. Medication compliance for current medications: yes. High Risk Medications Controlled Substances: Name: Oxycodone. Taking as instructed: no, because she said it makes her not feel well. Experiencing side effects: n/a. This medication was added during this hospital stay: yes.. Home Services Utilized The patient is not currently receiving home health services. Equipment/Supplies for Home Use Home equipment/supplies were received: yes.. Type of equipment/supplies: straight cath. Verbalizes how to use equipment/supplies: yes. Concerns related to equipment/supplies: no. Assessment/Plan Patient has no c/o fever/chills. No wheezing or increased shortness of breath at rest. No chest pain, pressure, or palpitations. Pt has had a BM today. She is performing self caths every 3 hours. Shereports getting around 300 mL out on average each time. She reports feeling sore and tired, but denies any concerns overall at this time. Follow-up Appointment PCP Follow-up appointment scheduled: patient refused. Specialty Follow-up scheduled with OBG . Recommendations Referral actions: none needed at this time. Additional recommendations: home care instructions reinforced or provided. Disposition/Recommendation: recommended continue engagement in self-management activities. Education: patient/caller able to teach back. Caller agreeable to plan of care: yes. Care Coordination Plan: Need for additional follow-up identified: NO Patient agrees to additional follow-up: N/A Follow-up plan: N/A documented in this encounter Plan of Treatment Not on file documented as of this encounter Visit Diagnoses Not on filedocumented in this encounter Care Teams Master Tax Advisor Relationship Specialty Start Date End Date Jana Hawkins MPAS, P.A.-C. [address] [place] [phone] PCP - General Internal Medicine 10/22/22 documented as of this encounter
--- OUTSIDE RECORDS SUMMARY | 2024-05-15 02:35 | XMS_ITS | Encounter Summary ---
Author Organization [facility] Address [address] [place] [address] Care Team Providers Care Straightedge Man Name Role Phone Jana Hawkins P.A.-C. Primary Care Pro vider Reason for Referral * Outpatient (Routine) - Closed Specialty Diagnoses / Procedures Referred By Christina child Referred To Contact Obstetrics and Gynecology Chante Lawson M.D. 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 Procedures HYSTERECTOMY TOTAL VAGINAL. SALPINGO-OOPHORECTOMY. REPAIR ENTEROCELE. COLPOPEXY VAGINAL. REPAIR ANTERIOR, VAGINAL. REPAIR POSTERIOR VAGINA. CYSTOSCOPY RIGID. Referral ID Status Reason Start Date Expiration Date Visits Re quested Visits Authorized [id number] 1 1 Encounter Details Date Type Department Care Team (Latest Contact Info) Description 03/09/2024 5:45 AM CDT - 03/11/2024 5:18 PM CDT Hospital Encounter [facility], Fifth Floor [address] [place] [address] Davy Sim M.D., M.S. [address] [place] [address] Retention Urinary (Primary Dx); Cystocele Rectocele With Uterine Prolapse Discharge Disposition: Home or Self Care Social History Tobacco Use Types Packs/Day Years Used Date Smoking Tobacco: Former Cigarettes 1 94 0 12/06/1972 - 12/25/2019 Passive Smoke Exposure: Never Smokeless Tobacco: Never Alcohol Use Standard Drinks/Week Comments Not Currently 0 (1 standard drink = 0.6 oz pur e alcohol) [facility] Utilities Answer Date Recorded In the past 12 months has e electric, gas, oil, or water [employer] threatened to shut off services in your [...] your living situation today? I have a [facility] place to live 03/09/2024 Comments No Sex and Gender Information Value Date Recorded Sex Assigned at Female 10/06/2023 6:16 PM CDT Legal Sex Female 9:58 PM COOKER SYRUP Gender Identity Female 10/14/2017 8:36 AM CDT [...] ranging from 0.6 cm to 3 cm. Comb Fixer tissue submitted for permanent sections. Grossed by Anais Regan M.S., PA([facility] B. Received fresh labeled left fallopian tube and ovary is a 5.9 x 0.6 cm fallopian tube with an attached 2.1 x 0.9 x 0.4 cm ovary. There are multiple paratubal and adnexal cysts, ranging from 0.2 cm to 0.8 cm in greatest dimension. The fallopian tube is otherwise unremarkable. The ovary has a solid cut surface. Comb Fixer tissue submitted for permanent sections. Grossed by Margoth Zarco M.D.-Pathology Resident and Anais Regan M.S., DEANDRA([facility]). C. Received fresh labeled right fallopian tube and ovary is a 0.6 g, 1.8 x 1.1 x 0.6 cm ovary with 6.4 x 0.8 cm fallopian tube. The ovary has a smooth outer surface and solid cut surface. The fallopian tube has multiple paratubal cysts ranging from 0.1 cm to 0.6 cm. Comb Fixer tissue submitted for permanent sections. Grossed by Umair Kent PA([facility]). Block Summary A Uterus and [...] of the testing process was performed at [facility] site [id number]. Digital imaging was used in the diagnostic [...] arranged with your surgical team at the [address] You will be contacted with your appointment details. Any questions regarding your appointment should be directed to the corporate safety coordinator at . CONTACT INFORMATION Instructions and Contact Information for Concerns, Issues, or Problems -If you experience a medical emergency, please call your local emergency response telephone number.For other questions, call the [facility] 24-hr telephone number: . Ask to be [...] For urgent questions and/or concerns, call the [facility] head kiln operator at and request to speak to the physician air conditioning mechanic for your surgical team. NOTE TO CAREGIVERS - If the patient appears very ill or is not easy to arouse take her directly to the nearest emergency room or call 111 for emergency assistance. Do not wait to [...] weeks after surgery or until the wound iscompletely healed. If given, please shower with Hibiclens soap until bottle is completely finished.Keep your wound clean and dry. You should observe your incision for signs of infection which include redness, warmth, drainage or fever. CONSTIPATION REMEDIES: Patients [...] If you want to locate the nearest [employer]-authorized commercial subcontractor to you, this can be found at: https://apps.Xsigoion.WeComicsMayomi.gov/pubdispsearch/spring/main SELF-CATHETERIZATION INSTRUCTIONS 1. Attempt to void urine [...] additional information about smoking cessation, go to: http://www.mayoclinic.org/stop-smoking or call 939-708-0082. Cosigned by Jaye Siddiqi M.D. at 03/11/2024 9:11 AM CDT Associated attestation - Jaye Siddiqi M.D. - 03/11/2024 9:11 AM CDT I saw the patient on the day of discharge with Dr. Riggins, Statistical Programmer Onc funeral pre need consultant, and agree with the discharge plans and disposition. documented in this encounter Discharge Instructions * Discharge Instructions* Hoang Manzanares - 03/09/2024 2:50 PM CDT You were discharged from the [facility] Gynecologic Surgery - [place] Service. Please identify this service name if you call with questions after hospitalization. * Attachments The following attachments cannot be sent through Care Everywhere. * Acetaminophen (By mouth) (Maltese) * Ibuprofen (By mouth) (Maltese) * Oxycodone, Rapid Release (By mouth) (Maltese) * Laxative, Stimulant Combination (By mouth) (Maltese) documented in this encounter Medications at Time [...] CDT 03/09/2024 documented as of this encounter Progress Notes [...] Blood 300 Total Output 2730 3115 Net -[id number] [id number] PHYSICAL EXAM Physical exam: General appearance: alert, [...] 3:26 PM by Nayely Matta RBrendanN. Overview: [facility] ring - 06/22 Cystocele Overview Signed 11/15/2017 3:26 PM by Nayely Matta RBrendanN. Overview: Pessary from [facility] with support Rectocele Polyp Colon Overview Signed 11/15/2017 3:26 PM by Nayely Matta RBrendanN. Overview: Colonoscopy 09/2009 polyps repeat in 5 [...] Siddiqi, gynecology fellow and Dr. Riggins, gynecology funeral pre need consultant. Anupam Garcia M.D. Obstetrics & Gynecology, [...] packing which was removed on my exam, [place] remains in place with clear/yellow urine Lungs: [...] Signed 11/15/2017 3:26 PM by Nayely Matta, RBrendanNBrendan Overview: [facility] - 06/22 Cystocele Overview Signed 11/15/2017 3:26 PM by Nayely Matta R.N. Overview: Pessary from [facility] with support Rectocele Polyp Colon Overview Signed 11/15/2017 3:26 PM by Nayely Matta R.N. Overview: Colonoscopy 09/2009 polyps repeat in [...] Chante Lawson MD Urogynecology Fellow, PGY-7 Pager #[phone] 03/10/2024 8:05 AM CDT * Vin Ku [...] was 130 on 12/27/23. Vin Ku MD PRESS CLIPPINGS CUTTER AND PASTER Resident * Hay Marks - 03/09/2024 7:00 AM CDT [facility] Spiritual Care Progress Note Patient: Camilla Montalvo Age:73 y.o. Location: [facility] Reason(s) for encounter: Spiritual support as part of the interdisciplinary care team. Spiritual Assessment Congregation Identification / Spiritual Practices: [employer]. Spiritual Needs and/or Concerns: Mrs. Montalvo requested prayer before surgery. Shared prayer. Spiritual Care interventions: Introduced the role as member of the interdisciplinary care team with the aim of establishing spiritual therapeutic rapport with patient and/or family Facilitated adventist/spiritual practices (prayer, blessing, sacred texts, adventist item) with theaim to reinforce patient's spiritual wellness and connection with source of sacredness. Spiritual Care outcomes: Patient/family was appreciative of spiritual care support. Spiritual Care Plan / Recommendations: Will remain available for spiritual care as needed or requested. Chaplains can be contacted by paging [phone] ([place]) or [phone] ([place]). documented in this encounter H&P Notes * [...] primary care through an OBGYN provider in [place]. She has a PMHx of schatzki ringand hiatal hernia for which she takes Omeprazole 20 mg BID. She has a personal history of breast cancer. She is up to date on screening mammogram (completed December 2023 at [place]). She regularly follows with her PCP in [place]. No history of liver disease, kidney disease, [...] estimated risk of tarik-operative cardiac , non-fatal VA, or non-fatal cardiac arrest: None RCRI risk: 0 Predictors (0.4% risk of major cardiac event) No history of hypertension. Blood pressure at home this morning was 117/74 mmHg. She has some concerns with electrolyte levels today. She reports a history of hyponatremia - specifically an ER visit in [place] in November 2023 the day after her most recently colonoscopy with a sodium level of 128. She had follow up with her primary care provider in [place] after this hospitalization. Social history is significant [...] follow with her primary care provider in [place] for management of chronic medical conditions. #6 Lung Cancer Screening She is candidate for our [facility] Lung Cancer Screening Program. She may consider inquiring withher primary care team in [place] if they offer a similar service. Otherwise, if she decides to enroll in our program I would be happy to place a consult at any time. JANETH Mendosa P.A.-C. documented in this encounter Nursing Notes [...] Post-op Diagnosis Cystocele Rectocele With Uterine Prolapse Community Associate A staffing assistant actively participated and was necessary for one [...] CBC without Differential (03/10/2024 2:13 PM CDT) [facility] Hemoglobin 12.4 11.6 - 15.0 g/dL 03/10/2024 [...] M.D. LAB BLOOD ADD-ON Lima l Result [facility] [address] [place] [address], [facility] [address] [place] [address] * (ABNORMAL) Basic Metabolic Panel (03/10/2024 12:31 [...] M.D. LAB BLOOD ADD-ON Final Res ult [facility] [address] [place], [place] [address] [address] [place] [address] * (ABNORMAL) CBC without Differential (03/10/2024 12:31 [...] M.D. LAB BLOOD ADD-ON Final Res ult [facility] [address] [place], [place] [address] [address] [place] [address] * DX Abdomen 1 View (03/09/2024 11:33 [...] ranging from 0.6 cm to 3 cm. Comb Fixer tissue submitted for permanent sections. Grossed by Anais Regan M.S., DEANDRA([facility]). B. Received fresh labeled left fallopian tube and ovary is a 5.9 x 0.6 cm fallopian tube with an attached 2.1 x 0.9 x 0.4 cm ovary. There are multiple paratubal and adnexal cysts, ranging from 0.2 cm to 0.8 cm in greatest dimension. The fallopian tube is otherwise unremarkable. The ovary has a solid cut surface. Comb Fixer tissue submitted for permanent sections. Grossed by Margoth Zarco M.D.-Pathology Resident and Anais Regan M.S., DEANDRA([facility]). C. Received fresh labeled right fallopian tube and ovary is a 0.6 g, 1.8 x 1.1 x 0.6 cm ovary with 6.4 x 0.8 cm fallopian tube. The ovary has a smooth outer surface and solid cut surface. The fallopian tube has multiple paratubal cysts ranging from 0.1 cm to 0.6 cm. Comb Fixer tissue submitted for permanent sections. Grossed by Paulino KentS., PA([facility]). 03/11/2024 7:00 AM CDT METH [...] of the testing process was performed at [facility] site [id number]. Digital imaging was used in the diagnostic assessment of this case. 03/11/2024 7:00 AM CDT METH Tissue (Uterus) 03/09/2024 8 :43 AM CDT Tissue (Fallopian Tube, Left) 03/09/2024 8:54 AM CDT Tissue (Fallopian Tube, Right) 03/09/2024 9:02 AM CDT us Davy Sim M.D., M.S. LAB SURG PATH ORDERABL ES Final Result [facility] [address] [place] [address], [facility] [address] [place] [address] * ECG 12 Lead (03/09/2024 7:20 AM CDT) Ventricular Rate ECG/Min 66 BPM MUSE UT Interval 160 ms MUSE QRSD Interval 80 ms MUSE QT Interval 420 ms MUSE QTC Interval 440 ms MUSE P Veneta 72 degrees MUSE R Veneta 26 degrees MUSE T Wave Ven[place] 63 degrees MUSE 03/09/2024 7:20 AM CDT [...] ECG ORDERABLES Final Res ult MUSE NA documented in this encounter Visit Diagnoses Diagnosis Cystocele Rectocele With Uterine Prolapse- Primary Cystocele Rectocele With Uterine Prolapse Retention Urinary documented in this encounter Admitting Diagnoses Diagnosis Cystocele Rectocele With Uterine Prolapse documented in this encounter Administered Medications Inactive Administered Medications - up to 3 most recent administrations Medication Order MAR Action Action Date Dose Rate Site acetaminophen injection 1,000 mg 1,000 mg, intravenous, at 400 mL/hr, Administer [...] enteral route or orally (not just NPO) New Bag 03/09/2024 12:58 PM CDT 1,000 mg 400 mL/hr acetaminophen tablet 1,000 mg (TylenoL) 1,000 mg, oral, Once, On Jerica 03/09/24 at 0730, For 1 dose, Pre-Op, In Pre Op holding (PWA) Given 03/09/2024 7:12 AM CDT 1,000 mg acetaminophen tablet 1,000 mg (TylenoL) 1,000 mg, oral, 4 times daily, First dose on Jerica 03/09/24 at 1700, not to exceed 4 grams in 24 hours. Given 03/11/2024 2:32 PM CDT 1,000 mg Given 03/11/2024 8:04 AM CDT 1,000 mg Given 03/10/2024 8:18 PM CDT 1,000 mg aprepitant capsule 40 mg (Emend) 40 mg, oral, Once, On Jerica 03/09/24 at 0730, For 1 dose, Pre-Op, Restriction Criteria (Pharmacy will review and approve if criteria met): Patient does not have IV access and cannot receive fosaprepitant IV Given 03/09/2024 7:12 AM CDT 40 mg calcium carbonate chewable tablet 200 mg of calcium (Tums) 200 mg of calcium, oral, Daily PRN, heartburn, indigestion, Starting on Jerica 03/09/24 at 2152, calcium carbonate chewable 500 mg (200 mg elemental) was interchanged for calcium carbonate chewable 500 mg calcium carbonate contains 200 mg of elemental calcium. Given 03/10/2024 11:47 AM CDT 200 mg of calcium celecoxib capsule 200 mg (CeleBREX) 200 mg, oral, Once, On Jerica 03/09/24 at 0730, For 1 dose, Pre-Op, Pre-procedure on unit. Not to be administered for acute GI bleed, history of GI bleed within past 6 months, or NSAID contraindications. Given 03/09/2024 7:13 AM CDT 200 mg cyclobenzaprine tablet 5 mg (FlexeriL) 5 mg, [...] Given 03/10/2024 2:41 PM CDT 5 mg fentaNYL injection 25 mcg (Sublimaze) 25 mcg, intravenous, Every 2 min PRN, For pain 4 or greater (maximum 100 mcg). If max dose of Fentanyl is reached and if pain is greater than 4, discontinue Fentanyl: give Hydromorphone, Starting on Jerica 03/09/24 at 1136, PACU (only) Given 03/09/2024 1:42 PM CDT 25 mcg Given 03/09/2024 1:13 PM CDT 25 mcg HYDROmorphone (PF) injection 0.2 mg (Dilaudid) 0.2 mg, intravenous, Every 5 min PRN, moderate pain or score 4-6 of 10, severe pain or score 7-10 of 10, Starting on Jerica 03/09/24 at 1136, PACU (only), Up to maximum total dose of 2 mg Given 03/09/2024 11:45 AM CDT 0.2 mg Given 03/09/2024 11:40 AM CDT 0.2 mg HYDROmorphone (PF) injection 0.4 mg (Dilaudid) [...] Given 03/11/2024 2:06 AM CDT 400 mg ketamine injection 10 mg (Ketalar) 10 mg, intravenous, Once as needed, Refractory moderate pain or score 4-6 of 10, Refractory severe pain score 7-10 of 10 after fentanyl or hydromorphone administration, Pain sedation mismatch AND RASS less than -1, Starting on Jerica 03/09/24 at 1136, For 1 dose, PACU (only) Given 03/09/2024 11:58 AM CDT 10 mg ketamine injection 10 mg (Ketalar) 10 mg, intravenous, Once, On Jerica 03/09/24 at 1230, For 1 dose, PACU (only) Given 03/09/2024 12:06 PM CDT 10 mg ketorolac injection 15 mg (ToradoL) 15 mg, intravenous, Every 6 hours, First dose on Jerica 03/09/24 at 1800, For 4 doses, start no sooner than 6 hours after last intraoperative dose. Adult IV push rate: Over 15 seconds. Peds IV push rate: Over 1 minute. Doses > 15 mg IV/IM are discouraged due to lack of additional analgesic benefit. Given 03/10/2024 2:41 PM CDT 15 mg Given 03/10/2024 8:35 AM CDT 15 mg Given 03/10/2024 2:49 AM CDT 15 mg Lactated Ringer's 40 mL/hr, intravenous, Continuous, Starting on Jerica 03/09/24 at 1415 Continued from OR 03/09/2024 2:13 PM CDT 40 mL/hr 40 mL/hr Lactated Ringer's 20 mL/hr, intravenous, Continuous, Starting on Jerica 03/09/24 at 1130, PACU & Post-Op Continued from OR 03/09/2024 11:42 AM CDT 20 mL/hr 20 mL/hr oxyCODONE IR tablet 10 mg (Roxicodone) [...] Given 03/10/2024 8:35 AM CDT 40 mg phenazopyridine tablet 200 mg (Pyridium) 200 mg, oral, Once, On Jerica 03/09/24 at 0730, For 1 dose, Pre-Op, In Pre Op holding (PWA), Drug Monitoring Program: Pharmacist to adjust medication dosing based on indication and drug clearance factors. Given 03/09/2024 7:12 AM CDT 200 m g sennosides-docusate sodium 8.6-50 mg per tablet 1 [...] PRN, flatulence, Starting on Wed03/10/24 at 1146 Given 03/11/2024 4:17 PM CDT [...] holding (PWA) 0712 (Given - Provider: Zina Pearson, R.N.) acetaminophen tablet 1,000 mg (TylenoL) 1,000 mg, oral, 4 times daily, First dose on Jerica 03/09/24 at 1700, not to exceed 4 grams in 24 hours. 1623 (Given - Provider: Katheryn Tinoco, RBrendanN.)1999 (Given - Provider: Clarissa Felton RBrendanNBrendan) 0527 (Given - Provider: Jacob Sherman RBrendanN.)1147 (Given - Provider: Kaleigh Okeefe RCleve)1956 (Not Given - Provider: Nayely Mcclain R.N. - Reason: Other)2017 (Given - Provider: Nayely Mcclain RBrendanN.) 0804 (Given - Provider: Kaleigh Okeefe R.N.)1432 (Given - Provider: Mack Early RBrendanNBrendan) aprepitant capsule 40 mg (Emend) (COMPLETED) 40 mg, oral, Once, On Jerica 03/09/24 at 0730, For 1 dose, Pre-Op, Restriction Criteria (Pharmacy will review and approve if criteria met): Patient does not have IV access and cannot receive fosaprepitant IV 07 (Given - Provider: Zina Pearson RCleve) ceFAZolin injection 2,000 mg (Ancef) (COMPLETED) 2,000 [...] within past 6 months, or NSAID contraindications. 07 (Given - Provider: Zina Pearson RCleve) ibuprofen tablet 400 mg(Linked Group 1) 400 mg, oral, Every 6 hours, First dose on Wed03/10/24 at 1800, start 6 hours after last ketorolac dose administered. 1757 (Given - Provider: Kaleigh Okeefe R.N.) 0206 (Given - Provider: Nayely Mcclain RBrendanN.)0804 (Given - Provider: Kaleigh Okeefe R.N.)1432 (Given - Provider: Mack Early RBrendanN.) ketamine injection 10 mg (Ketalar) (COMPLETED) 10 mg, intravenous, Once, On Jerica 03/09/24 at 1230, For 1 dose, PACU (only) 1206 (Given - Provider: Ayde Rodriguez R.N.) ketorolac injection 15 mg (ToradoL) (COMPLETED)(Linked Group 1) 15 mg, intravenous, Every 6 hours, First dose on Jerica 03/09/24 at 1800, For 4 doses, start no sooner than 6 hours after last intraoperative dose. Adult IV push rate: Over 15 seconds. Peds IV push rate: Over 1 minute. Doses > 15 mg IV/IM are discouraged due to lack of additional analgesic benefit. 1828 (Given - Provider: Katheryn Tinoco RBrendanNBrendan) 0249 (Given - Provider: Clarissa Felton RBrendanNBrendan)0835 (Given - Provider: Kaleigh Okeefe R.N.)1441 (Given - Provider: Kaleigh Okeefe RBrendanN.) pantoprazole DR tablet 40 mg (Protonix) 40 mg, oral, Daily before morning meal, First dose on Wed03/10/24 at 0700, pantoprazole 40 mg oral daily was interchanged for omeprazole 20 or 40 mg oral daily Swallow whole. Do NOT crush, chew, or split tablet. 0835 (Given - Provider: Kaleigh Okeefe R.N.) 0642 (Given - Provider: Nayely Mcclain RBrendanN.) phenazopyridine tablet 200 mg (Pyridium) (COMPLETED) 200 mg, oral, Once, On Jerica 03/09/24 at 0730, For 1 dose, Pre-Op, In Pre Op holding (PWA), Drug Monitoring Program: Pharmacist to adjust medication dosing based on indication and drug clearance factors. 0712 (Given - Provider: Zina Pearson RBrendanN.) sennosides-docusate sodium 8.6-50 mg per tablet 1 tablet (Senokot-S) 1 tablet, oral, 2 times daily, First dose on Jerica 03/09/24 at 2100, Starting evening of surgery. 1999 (Given - Provider: Clarissa Felton R.N.) 0835 (Given - Provider: Toño BarahonaNBrendan)2017 (Given - Provider: Toño ChakrabortyNBrendan) 0804 (Given - Provider: Kaleigh Okeefe RCleve) Continuous Medication Order 03/09/2024 03/10/2024 03/11/2024 Lactated Ringer's 40 mL/hr, intravenous, Continuous, Starting on Jerica 03/09/24 at 1415 1413 (Continued from OR - Provider: Katheryn Tinoco RBrendanN.)1910 (Stopped - Provider: Clarissa Felton R.N. - Comment: was stopped my previous nurse Katheryn Lombardo at 1910) Lactated Ringer's (CANCELED) 20 mL/hr, intravenous, Continuous, Starting on Jerica 03/09/24 at 1130, PACU & Post-Op 1142 (Continued from OR - Provider: Ayde Rodriguez RBrendanNBrendan) PRN Medication Order 03/09/2024 03/10/2024 03/11/2024 acetaminophen [...] (New Bag - Provider: Luz Elena Bower R.N.) BUPivacaine 0.25 % (2.5 mg/mL) injection (Marcaine) (CANCELED) As needed, Starting on Jerica 03/09/24 at 1114, Intra-Op 1114 (Given - Provider: Chante Lawson M.D. - Comment: Injected into vaginal incision) calcium carbonate chewable tablet 200 mg of calcium (Tums) 200 mg of calcium, oral, Daily PRN, heartburn, indigestion, Starting on Wed03/09/24 at 2152, calcium carbonate chewable 500 mg (200 mg elemental) was interchanged for calcium carbonate chewable 500 mg calcium carbonate contains 200 mg of elemental calcium. 1147 (Given - Provider: Kaleigh Okeefe R.N.) cyclobenzaprine tablet 5 mg (FlexeriL) 5 [...] 4, discontinue Fentanyl: give Hydromorphone, Starting on Wed03/09/24 at 1136, PACU (only) 1313 (Given - Provider: Luz Elena Bower RLashaun.)1342 (Given - Provider: Luz Elena Bower R.N.) HYDROmorphone (PF) injection 0.2 mg (Dilaudid) (CANCELED) 0.2 mg, intravenous, Every 5 min PRN, moderate pain or score 4-6 of 10, severe pain or score 7-10 of 10, Starting on Wed03/09/24 at 1136, PACU (only), Up to maximum total dose of 2 mg 1140 (Given - Provider: Ayde Rodriguez R.N.)1145 (Given - Provider: Ayde J Schoon, R.N.) HYDROmorphone (PF) injection 0.4 mg (Dilaudid) 0.4 mg, intravenous, Every 2 hour PRN, for breakthrough pain, Starting on Jerica 03/09/24 at 1352, Unrelieved 30 minutes after PRN oral pain medication is used; if unable to take oral pain medication; or if pain is greater than or equal to 7, use instead of oral pain medication. 1623 (Given - Provider: Katheryn Tinoco R.N.)2249 (Given - Provider: Clarissa Felton R.N.) ketamine injection 10 mg (Ketalar) (COMPLETED) 10 mg, intravenous, Once as needed, Refractory moderate pain or score 4-6 of 10, Refractory severe pain score 7-10 of 10 after fentanyl or hydromorphone administration, Pain sedation mismatch AND RASS less than -1, Starting on Jerica 03/09/24 at 1136, For 1 dose, PACU (only) 1158 (Given - Provider: Ayde Rodriguez R.N.) naloxone injection 0.2 mg (Narcan) 0.2 mg, [...] given 1451 (Given - Provider: Katheryn Tinoco R.N.)1958 (Given - Provider: Clarissa Felton RCleve) 0527 (See Alternative - Provider: Jacob Sherman R.N.)1235 (Given - Provider: Jacob Sherman RLashaun.)1801 (See Alternative - Provider: Kaleigh Okeefe RBrendanN.)2227 (See Alternative - Provider: Nayely Mcclain R.N.) [...] 1451 (See Alternative - Provider: Katheryn Tinoco RBrendanNBrendan)1958 (See Alternative - Provider: Clarissa Felton RrBendanNBrendan) 0527 (Given - Provider: Jacob Sherman RBrendanNBrendan)1235 (See Alternative - Provider: Jacob Sherman RBrendanNBrendan)1801 (Given - Provider: Kaleigh Okeefe R.N.)2227 (Given - Provider: Nayely Mcclain RBrendanNBrendan) 1645 (Given - Provider: Toño BarahonaNBrendan) simethicone chewable tablet 80 mg 80 mg, oral, 4 times daily PRN, flatulence, Starting on Wed03/10/24 at 1146 1233 (Given - Provider: Kaleigh Okeefe R.N.)1644 (Given - Provider: Kaleigh Okeefe RBrendanN.) 1617 (Given - Provider: Kaleigh Okeefe R.N.) [...] given documented in this encounter Care Teams Straightedge Man Relationship Specialty Start Date End Date Jana Hawkins MPAS, P.A.-C. [address] [place] [address] [place] [address] PCP - General Internal Medicine 10/22/22 documented as of this encounter
== END 2024-05-11 08:25 | disposition home or self-care (01) ==
LOC: NFLDREF 05-15 02:32
PROVIDERS: PCP Internal Medicine; Referring Provider Internal Medicine; Visit Provider Internal Medicine
DX: M85.80 Other specified disorders of bone density and structure, unspecified site (principal); Z13.6 Encounter for screening for cardiovascular disorders
CPT/HCPCS: 80061; 82306

== ENCOUNTER 2024-12-12 10:42 | Outpatient (CLI) | payer MEDICARE, BC, SELFPAY ==
--- NOTE | 2024-12-12 11:00 | CRLHL7_ITS ---
For Patients: As a result of the Cures Act, medical imaging exams and procedure reports are released immediately into your electronic medical record. You may view this report before your referring provider. If you have questions, please contact your health care provider. INDICATION: Lung cancer screening. History of smoking. TECHNIQUE: Low-dose lung cancer screening non-contrast CT chest. Dose reduction techniques were used. COMPARISON: 11/20/2019 FINDINGS: NODULES: Stable perifissural nodule on the right. Stable subpleural nodule on the right. Stable linear subpleural nodule left upper lobe. No additional nodule. LUNGS AND PLEURA: Emphysema. No infiltrate. MEDIASTINUM: No adenopathy. CORONARY ARTERY CALCIFICATION: Mild. LIMITED UPPER ABDOMEN: Unremarkable. MUSCULOSKELETAL: No fracture. IMPRESSION: Negative for lung cancer screening purposes. LUNG-RADS CATEGORY: 2: Benign. RADIOLOGIST RECOMMENDATION: Continue annual screening, if eligible, with low-dose CT chest in 12 months. Please note that all CT scans at this facility use dose modulation, iterative reconstruction, and/or weight-based dosing when appropriate to reduce radiation dose to as low as reasonably achievable. Dictated by Efrain López MD @ 12/13/2024 12:22:40 PM (Electronically Signed)
== END 2024-12-12 10:43 | disposition home or self-care (01) ==
LOC: CT 10:44
PROVIDERS: PCP Internal Medicine; Visit Provider Internal Medicine
DX: Z12.2 Encounter for screening for malignant neoplasm of respiratory organs (principal); Z87.891 Personal history of nicotine dependence
CPT/HCPCS: 71271

== ENCOUNTER 2024-12-18 09:59 | Outpatient (CLI) | payer MEDICARE, BC, SELFPAY ==
--- NOTE | 2024-12-18 10:15 | CRLHL7_ITS ---
For Patients: As a result of the Century Cures Act, medical imaging exams and procedure reports are released immediately into your electronic medical record. You may view this report before your referring provider. If you have questions, please contact your health care provider. CLINICAL HISTORY: : BILATERAL SCREENING MAMMOGRAM, ASYMPTOMATIC 74 Y/O FEMALE COMPARISON: 12/13/2023, 12/10/2022, 11/26/2021 TECHNIQUE: Digital BILATERAL mammogram in 4 projections with computer-aided detection. Tomosynthesis was used in this interpretation. BREAST COMPOSITION: The breasts are heterogeneously dense, which may obscure small masses. FINDINGS: Postlumpectomy changes left breast. No suspicious masses or architectural distortion within either breast. No adenopathy or suspicious calcifications. IMPRESSION: No evidence of malignancy. RECOMMENDATIONS: Routine screening mammography. A lay language report of this examination will be provided to the patient. BI-RADS Category 2. Benign. Dictated by Efrain López MD @ 12/18/2024 11:26:37 AM (Electronically Signed)
== END 2024-12-18 10:00 | disposition home or self-care (01) ==
LOC: MAMMO 09:59
PROVIDERS: PCP Internal Medicine; Visit Provider Internal Medicine
DX: Z12.31 Encounter for screening mammogram for malignant neoplasm of breast (principal); R92.333 Mammographic heterogeneous density, bilateral breasts
CPT/HCPCS: 77063; 77067

== ENCOUNTER 2025-04-04 07:58 | Outpatient (CLI) | payer MEDICARE, BC, SELFPAY | END 2025-04-04 07:59 | disposition home or self-care (01) | LOC: NFLDREF 04-05 18:16 | PROVIDERS: PCP Internal Medicine; Referring Provider Internal Medicine; Visit Provider Internal Medicine | DX: L65.9 Nonscarring hair loss, unspecified (principal) | CPT/HCPCS: 84443 ==

== ENCOUNTER 2025-05-06 12:04 | Emergency (ER) | payer MEDICARE, BC, SELFPAY ==
--- OUTSIDE RECORDS SUMMARY | 2019-07-15 02:27 | XMS_ITS | Continuity of Care Document ---
Author Organization [facility] Address [address] [place] [address] Phone Care Team Providers Care Route Supervisor Name Role Phone Arlin Sorto Unavailable Unavailable Allergies, Adverse Reactions, Alerts Substance Reaction Status Criticality Sulfa (Sulfonamide Antibiotics) Active No Information Medications Medication Instructions Dosage Effective Dates (start - stop) Status Comments benzonatate 100 mg capsule take 1 capsule by oral route 3 times every day as needed for cough 100 MG - Active promethazine-DM 6.25 mg-15 mg/5 mL oral syrup take 5 milliliter by oral route every 4 - 6 hours as needed, not to exceed 30 mL in 24 hours 5.00 milliliter - Active tamoxifen 20 mg tablet take 1 tablet by oral route every day 20 MG - Active oxybutynin chloride 5 mg tablet take 1 tablet by oral route 2 times every day 5 MG - Active omeprazole 20 mg capsule,delayed release take 1 capsule by oral route 2 times every day 30 minutes to 1 hour before a meal 20 MG - Active azithromycin 250 mg tablet take 2 tablet by oral route every day for 1 day then 1 tablet (250 mg) by oral route once daily for 4 days 500 MG - No Longer Active Procedures Procedure Date Offic/outpt E&m New Mod-hi 45 0 Advance Directives Directive Yes / No Effective Date File Name No Information Encounters Encounter Description Practice Location Reason(s) For Visit Diagnoses Date Provider Providers Copied on Encounter [facility], [address], [place], [place], [id number] , [place] tel:[phone] [facility] No Information 0 Pari Oliveros. [address], [address], [place], [address], [place]. tel:[phone] Offic/outpt E&m New Mod-hi 45 [facility], [address], [place], [place], [id number] , [place] tel: [phone] [facility] cough (chief complaint) BronchitisElevated blood pressure reading 0 No Information Family History Family Member Type Diagnosis Age At Onset No Information Payers Payer name Insurance type Covered republican ID Authoriza tion(s) No Information Social History Type Description Quantity Date Captured Comments Alcohol Use Details Unknown Caffeine Use Details Unknown Tobacco Use Status Smoking Status No Information Sex Female Chief Complaint And Reason For Visit No Information Reason For Referral Reason For Referral No Information Plan Of Treatment Date Type Action Status Patient Education Bronchitis: Care Instru ctions completed History Of Present Illness Encounter Date Complaint History Of Prese nt Illness cough Onset: gradual. Severity: moderate. The patient describes the cough as hacking and non-productive. It occurs persistently. The problem has not changed. Context: sick family member and smoker. Symptoms are aggravated by cold air. There are no relieving factors. Associated symptoms include chills, cough and fatigue. Pertinent negatives include dyspnea, dyspnea on exertion, fever, hoarseness, nasal congestion, night sweats, post-nasal drainage, rhinitis, rhinorrhea, sinus pressure, sore throat and wheezing. cough (comments) PATIENT IS VASU MINA FROM [place] AND WAS DIAGNOSED WITH BRONCHITIS AND TREATED WITH ZPACK BEFORE SHE LEFT TWO WEEKS AGO. IS REQUESTING ANOTHER. SHE HAD QUIT SMOKING BUT HAS SMOKED SINCE SHE HAS BEEN HERE WHICH HAS MADE COUGH WORSE. SHE DENIES FEVERS OR PRODUCTION. PATIENT IS UNABLE TO TOLERATE STEROIDS, MAKES HER AGITATED AND ANGRY. Functional Status Date Functional Assessmen t No Information Instructions Date Instruction Additional Infor mation PLEASE FILL YOUR PRE SCRIPTIONS AND TAKE ALL MEDICATIONS DIRECTED/PRESCRIBED EVEN IF YOU BEGIN TO FEEL BETTER BEFORE YOU RUN OUT OF MEDICINE. DRINK PLENTY OF FLUIDS INCLUDING SPORTS DRINKS/PEDIALYTE, WATER, JUICES AND OTHER REHYDRATING FLUIDS. STAY AWAY FROM CAFFEINATED BEVERAGES THEY CAUSE DEHYDRATION. FOR PAIN OR FEVER, TAKE TYLENOL (ACETOMINOPHEN) EVERY 4-6 HOURS AND/OR IBUPROFEN (MOTRIN, ADVIL) EVERY 6-8 HOURS. USE COUGH MEDICATIONS DIRECTED. QUIT SMOKING. DISCUSSED THAT ZPACK DOESNT NEED TO BE STARTED UNLESS CONDITION GETS WORSE. Related to Bronchitis Assessments Type Assessment Date No Information Patient Care Teams Name Effective Dates (start - stop) Status Members No Information
--- OUTSIDE RECORDS SUMMARY | 2019-07-15 02:27 | XMS_ITS | Continuity of Care Document ---
Author Organization [facility] Address [address] [place] [address] Phone Care Team Providers Care White Washer Name Role Phone Arlin Sorto Unavailable Unavailable [...] Diagnoses Date Provider Providers Copied on Encounter [facility], [address], [place], [place], [id number] , [place] tel:[phone] [facility] No Information 0 Pari Oliveros. [address], [address], [place], [address], [place]. tel:[phone] Offic/outpt E&m New Mod-hi 45 [facility], [address], [place], [place], [id number] , [place] tel: [phone] [facility] cough (chief complaint) BronchitisElevated blood pressure reading 0 No Information Family History Family Member Type Diagnosis Age At Onset No Information Payers Payer name Insurance type Covered democrat ID Authoriza tion(s) No Information Social History [...] cough (comments) PATIENT IS VASU MINA FROM [place] AND WAS DIAGNOSED WITH BRONCHITIS AND TREATED [...]
--- OUTSIDE RECORDS SUMMARY | 2025-05-06 12:06 | XMS_ITS | Clinical Summary ---
Author Organization [facility] Address [address] [place] [address] Care Team Providers Care Vulcanizing Press Operator Name Role Phone Elsewhere, Pcp Primary Care Provider Unavailabl e Source Comments Patient records contain information from all sites at [facility]. For routine questions regarding patient records, call [phone] during business hours, M-F 8:00 AM - 5:00 PM Central Time. Record requests for emergency care only can be directed to [phone] at any time.[facility] Allergies Active Allergy Reactions Criticality Noted Date Comments Cephalexin Hives only, no other systemic symptoms 07/07/2024 Itchy scalp Perfume Swelling High 10/10/2012 [place] Sulfa (Sulfonamide Antibiotics) Headache,Photosensi tivity Medium 08/26/2006 Suture (Absorbable) Other (see comments) 02/21/2024 Polyglycolic acid dissolvable sutures. Causes abnormal skin healing. Trimethoprim Rash 06/13/2024 Urticaria on scalp, arms Wine Spirit Hives (Reselect Reaction) High 05/08/2015 Medications * This document contains information received from the source organization and may not represent a complete record from that organization. docosahexanoic acid/epa (FISH OIL ORAL) Take 2 capsules by mouth daily. 3 Active MULTIVITAMIN ORAL Take 1 tablet by mouth daily. 3 Active omeprazole (PriLOSEC) 20 mg capsule Take [...] tablet Take 250 mg by mouth daily. 4 Active estradioL (Estrace) 0.1 mg/g (0.01%) vaginal cream Insert 1 g into the vagina 3 (three) times a week. Use at bedtime. Lubricate pessary with if for insertion. 42.5 g 11 4 Active ondansetron ODT (Zofran-ODT) 4 mg disintegrating tablet Dissolve 4 mg in the mouth. 4 Active acetaminophen (TylenoL) 500 mg tablet Take 2 tablets (1,000 mg total) by mouth every 6 (six) hours as needed for pain. 4 Active ibuprofen 200 mg tablet Take 3 tablets (600 mg total) by mouth every 6 (six) hours as needed for pain. 4 Active sennosides-docusat e sodium (Senokot-S) 8.6-50 mg per tablet Take 1 tablet by mouth at bedtime as needed for constipation. 4 Active phenazopyridine (Pyridium) 200 mg tablet Take 1 tablet (200 mg total) by mouth 3 (three) times a day as needed for painful urination. 10 tablet 4 Active Active Problems Problem Noted Date Diagnosed [...] from 09/23/2017:Stage IA(pT1c, pN0, cM0, G2, ER+, VA+, HER2-, Oncotype DX score: 15) - Signed by Sunil Torres M.D. on 11/02/2017 Clinical: Unsigned Overweight Body Mass Index 25-29.9 Adult 016 Gastroesophageal Reflux Disease Without Esophagi tis 07/06/2015 Overview (11/15/2017): Overview: [facility] ring - 06/22 Cystocele 07/06/2015 Overview (11/15/2017): Overview: Pessary from [facility] with support Rectocele 10/10/2012 Polyp Colon 10/01/2009 Overview (11/15/2017): Overview: Colonoscopy 09/2009 polyps repeat in 5 years Colonoscopy 10/2013 hyperplastic polyp repeat in 5 years Resolved Problems Problem Noted Date Diagnosed Date Resolved Date Elevated Blood Pressure 08/22/201502/05 Immunizations Immunization Administration Dates Next Due HZV (ZOSTAVAX) 01/19/2013 HepA Adult 12/06/2003,06/04/2003 Influenza TIV (IM) 03/27/1999 Influenza high dose QV(65 years or older) (PF) 0 03/04/2023,03/11/2021 Influenza, Quadrivalent, Adjuvanted, Preservativ e Free 03/30/2022 PCV13 08/26/2017 PPSV23 08/29/2018,05/17/2003 RSV: respiratory syncytial v irus (AREXVY) recombinant vaccine 05/21/2023 RZV (SHINGRIX) 03/11/2019 SARS-COV-2 (COVID-19) - MODE RNA (12 YEARS AND OLDER) Fall Seasonal 03/20/2023 SARS-COV-2 (COVID-19) - PFIZ ER Fall Seasonal (12 YEARS OR OLDER) 02/24/2024 SARS-COV-2 (COVID-19),NON-US,Unspecified(HISTORI VALERIA) 03/20/2023 Tdap 08/18/2017,04/26/2008 influenza trivalent high dose (HD)(PF) influenza vaccine quad (FLUZ ONE/FLUARIX) (6 months and older)(PF) 03/30/2022 Family History Medical History Relation Name Comments Skin cancer Father Chaitanya Olivera Dementia Mother Raeann Olivera Skin cancer Mother Raeann Olivera Melanoma Sister oRxy White Relation Name Status Comments Father Chaitanya Olivera Mother Raeann Olivera Sister Roxy White Social History Tobacco Use Types Packs/Day Years Used Date Smoking Tobacco: Former Cigarettes 1 94 0 12/06/1972 - 12/25/2019 Passive Smoke Exposure: Never Smokeless Tobacco: Never Tobacco Cessation:Counseling Given: Not Answered Alcohol Use Standard Drinks/Week Comments Not Currently 0 (1 standard drink = 0.6 oz pur e alcohol) [facility] Utilities Answer Date Recorded In the past 12 months has e [employer], gas, oil, or water [employer] threatened to shut off services in your [...] by your partner or ex-partner? No 03/09/2024 Hunger Vital Sign Answer Date Recorded Within [...] things needed for daily living? No 03/09/2024 Housing Stability Answer Date Recorded What is your living situation today? 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 Gender Identity Female 10/14/2017 8:36 AM [...] C Screening 1950 Lung Cancer Screening 1950 Zoster Vaccines (2 of 2) 05/06/2019 03/11/2019, 01/05 Depression Screening (Annual PHQ-2) 06/07/2024 Fall Risk Screen (Annual) 06/07/2024 COVID-19 Vaccine ( season) 2025 02/24/2024, 03/20/2023, 03/20/2023, Additional history exists Mammogram 12/18/2025 12/18/2024 (Perf ormed elsewhere), 12/13/2023 (Performed elsewhere) Cologuard 11/22/2026 11/23/2023 (Perf ormed elsewhere) Colorectal Cancer Surveillance 11/22/2026 Fasting Glucose for Diabetes Screening 03/10/2027 03/10/2024, 12/27/2023, 10/22/2022, Additional history exists DTaP,Tdap,and Td Vaccines (3 - Td or Tdap) 08/19/2027 08/18/2017, 04/26/2008 Hepatitis A Vaccines Completed 12/06/2003, 06/04/20 03 Pneumococcal vaccine (50+ years) Completed 08/29/2018, 08/26/2017, 05/17/2003 Bone Density Scan (Osteoporosis Screen) Addressed 11/24/2019 (Performed elsewhere) Overridden with the intention of not completing the topic RSV vaccine - (32-36 weeks) or 50+ years Completed 05/21/2023 HPV Vaccines Aged Out No longer eligi ble based on patient's age to complete this topic IPV Vaccines Aged Out No longer eligi ble based on patient's age to complete this topic Procedures Procedure Name Priority Date/Time Associated Diagnosis Comments BASIC METABOLIC PANEL, S/P Routine 03/10/2024 12:31 AM CDT from Last 3 Months or Most Recently Relevant to Health Maintenance Results * (ABNORMAL) Basic Metabolic Panel (03/10/2024 12:31 [...] M.D. LAB BLOOD ADD-ON Final Res ult [facility] [address] [place] [address], [facility] [address] [place] [address] from Last 3 Months or Most Recently Relevant to Health Maintenance Insurance [facility] [place] [address] MEDICARE Advance Directives For more information, please contact: [phone] * Full Code (Latest Code Status on File) Date Activated Date Inactivated Comments 03/09/2024 1:52 PM 03/11/2024 7:24 PM Question Answer Comments Full Code: Discussed Care Teams Vulcanizing Press Operator Relationship Specialty Start Date End Date Elsewhere, Pcp PCP - General Internal Medicine 01/11/25
--- OUTSIDE RECORDS SUMMARY | 2025-05-06 12:07 | XMS_ITS | Clinical Summary ---
Author Organization [facility] Address [address] [place] [address] Care Team Providers Care Paper Bags Sewing Machine Operator Name Role Phone Pinky Yusuf Jane Kristin MD Primary Care Provide r Allergies Active Allergy Reactions Criticality Noted Date Comments Amoxicillin Diarrhea,Edema 07/06/2015 Influenza Virus Vaccines Dyspnea 04/26/2008 Eye swelling Sulfa (Sulfonamide Antibiotics) Headache 08/06 Wine Spirit Hives 05/08/2015 Medications fluticasone (50 mcg per actuation) nasal solution (FLONASE)Indica tions:Bilateral acute serous otitis media, recurrence not specified Inhale 1 [place] into both nostrils 2 times daily. 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 Gender Identity Not on file Sexual Orientation [...] age 12+ 1964 Hepatitis C screening for age 18-79 1970 Pneumococcal series for age 50+ (1 of 1 - PCV) 2002 Zoster (shingles) series for age 50+ (2 of 3) 03/16/2013 01/19/2013 Mammogram for age 45-75 07/19/2014 07/19/19 14, 07/04/2012, 09/04/2010, Additional history exists Lipids for age 45-75 08/21/2015 08/20/2010, 11/19/19 07 DEXA/DXA scan for age 65+ 2017 Medicare Wellness for age 65+ 2017 BMI (ht and wt on same day) for age 18+ 10/23/2017 10/23/2016, 08/22/2015 Tetanus booster 04/26/2018 04/26/2008 Colonoscopy through age 75 11/02/201811/02, 11/01/2013, 09/27/2009 (Completed outside of [facility]), Additional history exists Influenza Vaccine (#1) 2025 03/27/1999 RSV vaccine for adults or (1 - 1-dose 75+ series) 08/24/2027 Hepatitis B series for 19+ Aged Out N o longer eligible based on patient's age to complete this topic Procedures Procedure Name Priority Date/Time Associated Diagnosis Comments XR MAMMO BILAT SCREEN FFDM (IA) Routine 07/19/2013 10:00 AM RECORDS MANAGEMENT ENGINEER Other screening mammogram LIPID PANEL Routine 08/20/2010 9:39 AM CDT Lipid screening from Last 3 Months or Most Recently Relevant to Health Maintenance Results * XR MAMMO BILAT SCREEN FFDM (07/19/2013 10:00 AM RECORDS MANAGEMENT ENGINEER) Anatomical Region Laterality Modality BREASTS, Breast Left, Breast Right Bilateral Mammography Impressions 07/19/2013 12:34 PM RECORDS MANAGEMENT ENGINEER There is no radiographic evidence for malignancy. Recommend annual mammograms. A lay language report of this examination will be provided to the patient. MAMMOGRAM ASSESSMENT: ACR 2 Benign Narrative 07/19/2013 12:34 PM RECORDS MANAGEMENT ENGINEER XR MAMMO BILAT SCREEN FFDM [G0202.0] CLINICAL HISTORY: This is an asymptomatic 62 y.o. patient. INDICATION FOR EXAM: Mammogram Screening. TECHNIQUE: CC & MLO views were obtained. This digital study was evaluated with the assistance of Computer-Aided Detection. COMPARISON FILMS: Yes 07/04/12 [facility] 09/04/10 [facility] FINDINGS: Mammographically, the breast tissue is [...] of Computer-Aided Detection. COMPARISON FILMS: Yes 07/04/12 [facility] 09/04/10 [facility] FINDINGS: Mammographically, the breast tissue is heterogeneously dense,which could obscure detection of small masses (approximately 51% - 75%glandular). No suspicious masses or microcalcifications. Benignappearing calcifications within both breasts. IMPRESSION: There is no radiographic evidence for malignancy. Recommendannual mammograms. A lay language report of this examination will be provided to the patient. MAMMOGRAM ASSESSMENT: ACR 2 Benign Arcelia Klein MD MAMMO Fi nal Result * LIPID (08/20/2010 9:39 AM CDT) CHOLESTEROL,TOTAL 183 110 - 199 mg/dL [facility] TRIGLYCERIDES 122 <150 mg/dL [facility] HDL CHOLESTEROL 69 >40 mg/dL [facility] CHOL/HDL RATIO 2.65 <4.51 [facility] LDL CHOLESTEROL 90 <131 mg/dL [facility] PATIENT STATUS Fasting [facility] Blood specimen (specimen) BLOOD SPECIMEN / Unknown 08/20/2010 9:39 AM CDT 08/20/2010 9:28 AM CDT Grace Hutchins NP CHEMISTRY Final Result [facility] [address] [place], [place] [id number] from Last 3 Months or Most Recently Relevant to Health Maintenance Insurance [employer] [place] BLUE MR PB ONLY [employer] [place] [id number] Care Teams Paper Bags Sewing Machine Operator Relationship Specialty Start Date End Date Melodie Aguilar MD [address] [facility] [place] [id number] PCP - General Family Practice 04/12/15 Pinky Yusuf VALUE ENGINEER Obstetrics and Gynecology 09/20/12
--- OUTSIDE RECORDS SUMMARY | 2025-05-06 12:07 | XMS_ITS ---
Author Organization [facility] Address [address] [place] [address] Care Team Providers Care Microfilm Camera Operator Name Role Phone Elsewhere, Pcp Primary Care Provider Unavailabl e Active Problems * This document contains information [...] from 09/23/2017:Stage IA(pT1c, pN0, cM0, G2, ER+, MA+, HER2-, Oncotype DX score: 15) - Signed by Sunil Torres M.D. on 11/02/2017 Clinical: Unsigned Overweight Body Mass Index 25-29.9 Adult 016 Gastroesophageal Reflux Disease Without Esophagi tis 07/06/2015 Overview (11/15/2017): Overview: [facility] ring - 06/22 Cystocele 07/06/2015 Overview (11/15/2017): Overview: Pessary from [facility] with support Rectocele 10/10/2012 Polyp Colon 10/01/2009 Overview (11/15/2017): Overview: Colonoscopy 09/2009 polyps repeat in 5 years Colonoscopy 10/2013 hyperplastic polyp repeat in 5 years Current Treatment and Therapy Plans No current plan information found. Past Treatment and Therapy Plans No past plan information found. Radiation Treatments * Course 1x_L Breast BH 11/10/2017 - 11/30/2017 Treatment Period Energy Fraction Dose Fractions Total Dose Plans Planned [id number] 11/10/2017 - 11/30/2017 267 cGy 4,005 cGy Reference Points Delivered [id number] 11/10/2017 - 11/30/2017 4,005 cGy Resolved Problems Problem Noted Date Diagnosed Date Resolved Date Elevated Blood Pressure 08/22/201502/05
[2025-05-06 12:20] VITALS: BP 174/97; PULSE 81; RESP 18; TEMP 37.1; O2SAT 97; BMI 27.5
--- NOTE | 2025-05-06 12:57 | CRLHL7_ITS ---
For Patients: As a result of the Century Cures Act, medical imaging exams and procedure reports are released immediately into your electronic medical record. You may view this report before your referring provider. If you have questions, please contact your health care provider. INDICATION: Headache, dizziness. TECHNIQUE: CTA head using intravenous contrast with bolus tracking, 3D angiographic rendering using maximum intensity projection (MIP) and images permanently archived. CTA neck using intravenous contrast with bolus tracking, 3D angiographic rendering using maximum intensity projection (MIP) and images permanently archived. FINDINGS: CTA head: There is normal opacification of the intracranial vasculature. There is no large vessel occlusion or significant intracranial stenosis. No aneurysm is identified. CTA neck: There is no significant carotid artery stenosis or dissection. There is no significant vertebral artery stenosis or dissection. Degenerative changes are noted in the cervical spine. Emphysema is present in the visualized lungs. IMPRESSION: No acute intracranial abnormality at CTA. No significant carotid or vertebral artery stenosis or dissection. Please note that all CT scans at this facility use dose modulation, iterative reconstruction, and/or weight-based dosing when appropriate to reduce radiation dose to as low as reasonably achievable. Dictated by Enrike Taylor MD @ 05/06/2025 5:14:57 PM (Electronically Signed)
--- NOTE | 2025-05-06 12:57 | CRLHL7_ITS ---
For Patients: As a result of the Century Cures Act, medical imaging exams and procedure reports are released immediately into your electronic medical record. You may view this report before your referring provider. If you have questions, please contact your health care provider. Indication: Dizziness. Headache. Technique: Noncontrast CT images of the brain. Comparison: None. Findings: Mild diffuse cerebral volume loss. No mass effect or midline shift. Friend-white differentiation is maintained. No acute intracranial hemorrhage or pathologic extra-axial fluid collection. Globes are symmetric. Calvarium is intact. The visualized paranasal sinuses and mastoid air cells are clear. Impression: No acute intracranial hemorrhage or mass effect. Please note that all CT scans at this facility use dose modulation, iterative reconstruction, and/or weight-based dosing when appropriate to reduce radiation dose to as low as reasonably achievable. Dictated by Ty Dias MD @ 05/06/2025 2:15:26 PM (Electronically Signed)
--- NOTE | 2025-05-06 12:59 | ED_ITS ---
HPI - General Adult General Date Seen: 05/06/25 Chief complaint: Dizziness/Vertigo Stated complaint: swelling on top of head, nausea, dizziness Time Seen by Provider: 05/06/25 12:48 History of Present Illness HPI narrative: Patient is a 74-year-old woman here with her for evaluation of dizziness and scalp concerns. Since November she says she has been dealing with redness, tingling and burning of her scalp. She says that she has been seeing a sanipractic physician and they are ?stumped. Since yesterday she feels like her scalp has been swollen and there is a lump. Her says he has not been able to feel the lump, she says it is better since she took ibuprofen this morning. Since yesterday also she has been having some episodes of dizziness, these occur with position changes and she feels like she is tripping over her feet. Started yesterday afternoon, was better this morning but as the days going on she is feeling like it is getting worse again. She feels like she has a tight band around her head, things seemed very bright. No history of migraine. She does not have a severe headache just this tight band around her head sensation. She has had some nausea but no vomiting. Related Data Home Medications ?Medication ?Instructions ?Recorded ?Confirmed estradiol 0.01% (0.1 mg/gram) 1 g vaginal 3XW 05/06/25 05/06/25 vaginal cream Previous Rx's ?Medication ?Instructions ?Recorded omeprazole 20 mg capsule,delayed 20 mg PO BID #180 cap s 03/08/25 release Allergies Allergy/AdvReac Type Severity Reaction Status Date / Time cephalexin Allergy Mild Verified 05/06/25 12:30 Sulfa (Sulfonamide Allergy Verified 06/12/24 10:30 Antibiotics) Review of Systems Status of ROS: Reports: 10 or more systems reviewed and unremarkable except as noted in History and below [facility] Medical History History of invasive ductal carcinoma of breast ?Z85.3 - Personal history of malignant neoplasm of breast (ICD-10) Surgical History History of total hysterectomy with bilateral salpingo-oophorectomy (BSO) ?Z90.710 - Acquired absence of both cervix and uterus (ICD-10) ?Z90.722 - Acquired absence of ovaries, bilateral (ICD-10) ?Z90.79 - Acquired absence of other genital organ(s) (ICD-10) History of squamous cell carcinoma excision ?Z98.890 - Other specified postprocedural states (ICD-10) ?Z85.9 - Personal history of malignant neoplasm, unspecified (ICD-10) S/P left breast biopsy (~08/2017) ?Z98.890 - Other specified postprocedural states (ICD-10) S/P breast biopsy, right (~1981) ?Z98.890 - Other specified postprocedural states (ICD-10) History of tubal ligation ?Z98.51 - Tubal ligation status (ICD-10) History of lumpectomy (~09/2017) ?Z98.890 - Other specified postprocedural states (ICD-10) History of appendectomy (2019) ?Z90.49 - Acquired absence of other specified parts of digestive tract (ICD- 10) Family History Father Coronary artery disease Uncle Coronary artery disease Aunt Breast cancer in female Social History What is your current living situation?: I presently have a place to live In the past 12 months, utilities in danger of being shut off: no In past 12 months, lack of transportation kept you from medical appts, meetings, work, or getting things needed for daily living: no Highest level of school completed/degree received: some college, no degree Smoking Status: Former smoker Do you use any of these nicotine containing products: None How often do you have a drink containing alcohol: never How often do you have six or more drinks on one occasion: Never AUDIT-C Alcohol total score: 0 Non-prescribed substance use: denies use How often does anyone, including family, friends and others, physically hurt you : never How often does anyone, including family, friends and others, insult or talk down to you: never How often does anyone, including family, friends and others, threaten you with harm: never How often does anyone, including family, friends and others, scream or curse at you: never Do you think of yourself as: straight/heterosexual Gender Identity: female Exam Narrative: Exam Narrative: Vital signs reviewed In general, an alert, nontoxic woman. She looks comfortable, conversant. Head: Normocephalic, atraumatic. Her scalp is somewhat diffusely pink, no warmth, no edema, no masses. Eyes: Sclera clear. Pupils equal and reactive. Extraocular movements are full, no nystagmus. ENT: Mucous membranes moist. Tongue is midline. Throat is normal. Neck: Supple without adenopathy. Heart: Regular rate and rhythm without murmur. Lungs: Clear. No increased work of breathing, crackles or wheezes. Abdomen: Soft, nontender to palpation. Extremities: Well perfused, pulses intact. No significant edema. Neurologic: Alert, conversant. Speech fluent, face symmetric. Moves all extremities equally. Gait is stable. Cerebellar function intact by finger-nose testing. Skin: Warm, dry well perfused. Affect: Normal. Const: Vital Signs, click to edit/add: Vital Signs - 24 hr 05/06/25 12:20 05/06/25 15:11 Temperature 98.8 F 98.0 F Pulse Rate [Pulse Oximeter] 81 67 Respiratory Rate 18 18 Blood Pressure [Ri ght Upper Arm] 174/97 H 141/69 H Pulse Oximetry 97 97 Oxygen Delivery Me thod Room Air Room Air Course Course ED Course: Patient presents with ongoing concerns regarding scalp redness of undetermined etiology. I do not see anything today that is suggestive of an acute deterioration such as infection, abscess, etcetera. With regard her dizziness this seems to be mild and episodic, my suspicion for stroke is relatively low, she is somewhat hypertensive, although she does not normally have hypertension, does not have any specific risk factors for stroke aside from age. Her neurologic exam is normal, no features that are strongly suggestive of a central cause and I suspect her symptoms are likely peripheral, but I will get a CT, CT angio of the head and neck make sure there is no evidence of large vessel disease. I reviewed the CT scan of her head. I do not see any evidence of hemorrhage or mass effect. Read as negative by Radiology. I reviewed the preliminary report on her CT angiogram of the head and neck which is read as no proximal large vess el occlusion or cervical artery stenosis. She feels improved after Zofran here. She says she does not do well with medications in general and she did not want any other treatment. I reviewed the CT scan findings with her. Discussed that her symptoms are more likely to be inner ear related and not likely related to her scalp. She remains concerned about this ?lump on her scalp, I do not feel any abnormalities on exam and nothing was seen on CT. I have tried to reassure her that this feels normal and just represents the normal contour of her scalp. She has a dermatology appointment coming up in a couple of days and a primary care appointment coming up in a week and half for so. I have given her some Zofran for home use. Reviewed reasons to return, otherwise anticipate gradual improvement over the next few days and if not should discuss with primary care. Diagnosis: Positional vertigo. Scalp irritation. Vital Signs Vital signs: Initial Vital Signs Temperature 98.8 F 05/06/25 12:20 Temperature Source Temporal Artery Scan 05/06/25 12:20 Pulse Rate 81 05/06/25 12:20 Respiratory Rate 18 05/06/25 12:20 Blood Pressure 174/97 H 05/06/25 12:20 Blood Pressure Mean 122 H 05/06/25 12:20 Blood Pressure Position Sitting 05/06/25 12:20 Pulse Oximetry 97 05/06/25 12:20 Oxygen Delivery Method Room Air 05/06/25 12:20 Vital Signs Temperature 98.8 F 05/06/25 12:20 Pulse Rate 81 05/06/25 12:20 Respiratory Rate 18 05/06/25 12:20 Blood Pressure 174/97 H 05/06/25 12:20 Pulse Oximetry 97 05/06/25 12:20 Oxygen Delivery Method Room Air 05/06/25 12:20 Temperature 98.0 F 05/06/25 15:11 Pulse Rate 67 05/06/25 15:11 Respiratory Rate 18 05/06/25 15:11 Blood Pressure 141/69 H 05/06/25 15:11 Pulse Oximetry 97 05/06/25 15:11 Oxygen Delivery Method Room Air 05/06/25 15:11 Medications Administered Medications: Discontinued Medications Generic Name Dose Route Start Last Admin Trade Name Freq PRN Reason Stop Dose Admin Ondansetron HCl 4 mg 05/06/25 12:57 05/06/25 13:28 Ondansetron 2 Mg/Ml Inj IVP 05/06/25 12:58 4 mg ONCE ONE Administration Medical Decision Making Lab Data Labs: Lab Results 05/06/25 Range/Units 13:15 POC Creatinine 0.7 (0.6-1.3) mg/dl Imaging Data Head CT/CTA: Attestation: I have reviewed the pertinent imaging results. Radiologist's impression: Patient: LORRIE NGO Facility: [facility] . Site : 1950 Study: CT-Head W/O-05/06/2025 2:10:50 PM Ordering Physician: Óscar Walsh Final Report: Indication: Dizziness. Headache. Technique: Noncontrast CT images of the brain. Comparison: None. Findings: Mild diffuse cerebral volume loss. No mass effect or midline shift. Friend-white differentiation is maintained. No acute intracranial hemorrhage or pathologic extra-axial fluid collection. Globes are symmetric. Calvarium is intact. The visualized paranasal sinuses and mastoid air cells are clear. Impression: No acute intracranial hemorrhage or mass effect. Please note that all CT scans at this facility use dose modulation, iterative reconstruction, and/or weight-based dosing when appropriate to reduce radiation dose to as low as reasonably achievable. Dictated by Ty Dias MD @ 05/06/2025 2:15:26 PM Patient: LORRIE NGO Facility: [facility] . Site : 1950 Study: CT-Neck Angio W/IV-05/06/2025 2:12:01 PM Ordering Physician: Óscar Walsh Preliminary Report: No proximal large vessel occlusion or cervical arterial stenosis. Read by: Ty Dias MD @05/06/2025 2:19:56 PM Discharge Plan Discharge Clinical Impression: Dizziness Patient Disposition: Home, Self-Care Condition: Stable Instructions: Dizziness (ED) Additional Instructions: Your scans today are normal. There are no signs of abnormalities in your brain, and the blood vessels that supply your brain looked normal as well. I have prescribed some Zofran for you to use for nausea. Dizziness like yours is usually a problem with the inner ear, and improves over the space of a few days. If you are not getting better, you should see your primary doctor. Sometimes physical therapy can be helpful. If you feel significantly worse, have new symptoms, return to the ER. Prescriptions: No Action estradiol 0.01 % (0.1 mg/gram) cream 1 g vaginal 3XW omeprazole 20 mg capsule,delayed release(DR/EC) 20 mg PO BID Qty: 180 0RF Follow Up/Referrals: Alyx Caraballo MD [Primary Care Provider, Internal Medicine] Stand Alone Forms: [employer] Info Instructions
[2025-05-06 13:25] LABS: Creatinine, Point-of-Care* 0.7 mg/dl (0.6-1.3)
[2025-05-06] MEDS: ONDANSETRON 2 MG/ML inj 4 MG IVP (13:28)
[2025-05-06 15:11] VITALS: BP 141/69; PULSE 67; RESP 18; TEMP 36.7; O2SAT 97
== END 2025-05-06 15:38 | disposition home or self-care (01) ==
PROVIDERS: Emergency Provider Emergency Medicine; PCP Internal Medicine
DX: R42 Dizziness and giddiness (principal); L21.9 Seborrheic dermatitis, unspecified
CPT/HCPCS: 36415; 70450; 70496; 70498; 82565; 96374; 99284; 99285; J2405; Q9967